=== PATIENT | female | born 1950 | race Caucasian/White ===

== ENCOUNTER 2024-06-16 23:08 | Inpatient (IN) | payer MEDICARE, MEDICAID, SELFPAY ==
[2024-06-16 23:52] VITALS: BP 162/67; PULSE 120; RESP 24; TEMP 37.9; O2SAT 78; BMI 28.0
--- NOTE | 2024-06-16 23:56 | PD.EDRME ---
Rapid Medical Screening Exam RME Arrival date/time: 06/16/24 23:08 73 yo f present to ED for c/o of SOB. I have greeted and performed a focused initial assessment of this patient. A comprehensive ED assessment and evaluation of the patient, analysis of all test results, and completion of the medical decision making process will be conducted by additional ED providers. Chief Complaint: Shortness of Breath/Dyspnea Vital signs: Vital Signs Temperature 100.3 F 06/16/24 23:52 Pulse Rate 120 H 06/16/24 23:52 Respiratory Rate 24 H 06/16/24 23:52 Blood Pressure 162/67 H 06/16/24 23:52 Pulse Oximetry (%) 78 L 06/16/24 23:52 Oxygen Delivery Method Room Air 06/16/24 23:52
--- NOTE | 2024-06-16 23:57 | XR_ITS ---
Examination: AP chest single view Technique one AP portable upright chest single view Exam date and time: June 16, 2024 1106 hrs. Indications: Shortness of breath today. Findings: Mild prominence of ventricle Prominent vascular congestion including central vascular engorgement No tracy lobar pneumonia The osseous structures are intact Impression: Suspicious for early heart failure
[2024-06-17] VITALS (15 sets, daily range): BP systolic 116–170; BP diastolic 54–91; PULSE 73–118; RESP 15–32; TEMP 36.1–38.1; O2SAT 90–98
[2024-06-17 00:25] LABS: Base Excess 3 (-3-3); HCO3 27 mEq/L (20-26); O2 Saturation 99 % (91-98); PCO2 38 mmHg (32.0-48.0); PO2 94 mmHg (83-108); pH, Arterial 7.46 (7.35-7.45)
[2024-06-17 00:30] LABS: Basophils % (Auto) 0 % (0-2.5); Eosinophils % (Auto) 0 % (0-10); Hematocrit 38.7 % (36.0-46.0); Hemoglobin 12.8 g/dL (12.0-16.0); Immature Granulocytes % (Auto) 1 % (0-0); Immature Granulocytes Auto 0.14 Thou/mm3 (0.00-0.00); Lymphocytes % (Auto) 16 % (10-50); Mean Corpuscular HGB Conc 33.1 g/dl (31.0-37.0); Mean Corpuscular Hemoglobin 28.1 pg (25.0-35.0); Mean Corpuscular Volume 85 fL (80-100); Monocytes # (Auto) 1.3 Thou/mm3 (0.0-0.8); Monocytes % (Auto) 7 % (0-12); Neutrophils # (Auto) 14.1 Thou/mm3 (1.8-7.7); Neutrophils % (Auto) 76 % (37-80); Nucleated Red Blood Cell % 0 /100 WBC (0); Platelet Count 242 Thou/mm3 (140-440); RDW Standard Deviation 40.7 fL (36.4-46.3); Red Blood Count 4.55 Miln/mm3 (4.00-5.20); White Blood Count 18.5 Thou/mm3 (3.6-11.0)
[2024-06-17 00:30] LABS: Inspired O2, VO2 Liters 12 L/min
[2024-06-17 00:31] LABS: Allen Test Performed/OK; Puncture Site Right Radial
[2024-06-17 00:57] LABS: B-Type Natriuretic Peptide 49 pg/mL (0-100)
[2024-06-17 00:59] LABS: Alanine Aminotransferase 14 U/L (10-49); Albumin, Serum 4.9 gm/dL (3.4-4.8); Albumin/Globulin Ratio 1.8 (1.2-2.2); Alkaline Phosphatase 70 U/L (46-116); Anion Gap 9 (7-16); Aspartate Amino Transferase 17 U/L (0-34); BUN/Creatinine Ratio 19 Ratio (12-20); Bilirubin,Total 0.4 mg/dL (0.3-1.2); Blood Urea Nitrogen 19 mg/dL (9-23); Calcium 9.7 mg/dL (8.3-10.6); Calcium (Corrected) 9.7 mg/dL (8.5-10.1); Carbon Dioxide 26.6 mMol/L (20.0-31.0); Chloride 101 mMol/L (98-107); Estimated Creatinine Clearance 57.8 mL/min (>60); Globulin 2.7 gm/dL (2.3-3.5); Glucose 109 mg/dL (74-106); Osmolality,Calculated 277 (275-295); Potassium 3.7 mMol/L (3.4-5.1); Sodium 137 mMol/L (136-145); Total Protein 7.6 gm/dL (5.7-8.2); Troponin I < 0.020 ng/mL (0.0-0.045); eGFR 59 See Note
--- NOTE | 2024-06-17 01:48 | PD.EDSOB ---
ED SOB =RME/HPI General Chief Complaint: Shortness of Breath/Dyspnea Stated Complaint: DIFF BREATHING Source: patient Arrival date/time: 06/16/24 23:08 Mode of arrival: ambulatory Limitations: no limitations RME / HPI RME / HPI Narrative: Patient is a 73 years old female with PMH of asthma, GERD, HTN, HLD presented to the ED complaining of SOB. She reports she had URI symptoms for the last several days, today her breathing got worse and she came to the ED. She was previously prescribed home oxygen but due to insurance issues wasn't able to refill it. She reports runny nose, non-productive cough, SOB, chills. She denies chest pain, abdominal pain, fever. Related Data Home Medications ?Medication ?Instructions ?Recorded ?Confirmed Acetaminophen With Codeine #3 * 1 tab PO [id number] PRN PAIN #0 tabs 03/28/17 (TYLENOL WITH CODEINE #3 *) albuterol sulfate 2.5 mg/3 mL ##1 03/28/17 (0.083 %) solution for nebulization albuterol sulfate 90 mcg/actuation 2 puff inhalation Q6HR PRN 03/28/17 aerosol inhaler (Proventil HFA) SHORTNESS OF BREATH #0 inhalations alprazolam 0.25 mg tablet 0.25 mg PO BID #0 tabs 03/28/17 lisinopril 40 mg tablet 40 mg PO QDAY #0 tabs 03/28/17 montelukast 10 mg tablet 10 mg PO HS #0 tabs 03/28/17 (Singulair) simvastatin 20 mg tablet (Zocor) 20 mg PO HS #0 tabs 03/28/17 Previous Rx's ?Medication ?Instructions ?Recorded famotidine 20 mg tablet 20 mg PO BID #14 tabs 01/31/22 sucralfate 100 mg/mL oral 5 ml PO QID #400 mL 01/31/22 suspension (Carafate) Allergies Allergy/AdvReac Type Severity Reaction Status Date / Time aspirin Allergy Unknown UNKNONW Unverified 06/17/24 02:21 diphenhydramine Allergy Unknown UNKNONW Unverified 06/17/24 02:21 Penicillins Allergy Unknown UNKNOWN Unverified 06/17/24 02:21 Review of Systems Review of Systems Systems Reviewed: All systems reviewed, normal except as documented Past Medical History Social History SMOKING STATUS: Former smoker ED Exam Narrative Physical exam: GENERAL: In general the patient is awake, interactive, in an emergency department gurney. HEAD/EYES/EARS/NOSE/THROAT: normo-cephalic, atraumatic, mucus membranes are moist. No cervical tenderness palpation midline. Supple neck. CARDIOVASCULAR: regular rate and regular rhythm, no murmurs, heart sounds are not distant, strong pulses in all four extremities that are equal and symmetric bilateral upper and lower extremities, normal capillary refill. CHEST/PULMONARY: normal chest rise and fall, good air movement, mild expiratory wheezing bilaterally. ABDOMEN: soft, not tender, no masses appreciated BACK: normal range of motion without pain. NEUROLOGICAL: cranio-facial features are symmetric, moves all four extremities equally without obvious limitations or weakness. EXTREMITY: no tenderness to palpation over the long bones or large joints of the bilateral upper and lower extremities, no joint swelling, no joint erythema, no signs of trauma, no unilateral leg swelling and no peripheral edema. SKIN: warm, dry, well-perfused, no jaundice, no rash, no telangiectasias or petechia. PSYCH: calm, cooperative, no evidence of psychosis or agitation General Limitations: Present no limitations Course Course Course Narrative: 0155 Sepsis alert initiated. Orders made at this time are congruent with ED Adult Sepsis Order List. Re-evaluation is to be completed. 0230 Sepsis reassessment performed consisting of lab review, vitals, physical exam including auscultation of heart, lungs, and visual evaluation of capillary refills, mucosal membranes and extremities. CXR and CTA are ordered for determining etiology of shortness of breath. 0600: passed to day shift. Quality Measures Possible source: pulmonary Blood cultures ordered: yes Antibiotic ordered: Yes Pertinent labs: 06/17/24 00:05 Procalcitonin 0.10 ng/ml (0.0-0.49) sepsis Orders Category Date Time Status Bedside COVID-19 Antigen Test NOW Care 06/17/24 02:00 Active Bedside Influenza A&B Antigen Test NOW Care 06/16/24 23:[address] Screening NOW Care 06/17/24 02:54 Active EKG (ED ONLY) *Do not use* NOW Care 06/16/24 23:57 Completed Insert IV STAT Care 06/16/24 23:[address] angio chest Stat Exams 06/17/24 02:54 Taken EKG (ED Only) Stat Exams 06/16/24 23:57 Ordered XR chest 1V portable Stat Exams 06/16/24 23:57 Taken ABG [Arterial Blood Gas] Stat Lab 06/17/24 00:18 Completed BNP [B-Type Natriuretic Peptide] Stat Lab 06/16/24 23:58 Completed Blood Culture (Lab) Stat Lab 06/16/24 23:58 Received CBC Stat Lab 06/16/24 23:57 Completed CMP [Comprehensive Metabolic Panel] Stat Lab 06/16/24 23:57 Completed Procalcitonin Stat Lab 06/16/24 23:57 Completed Troponin I Stat Lab 06/16/24 23:57 Completed Urinalysis Stat Lab 06/17/24 05:32 Ordered Albuterol/Ipratr Rt Jannie [Duoneb Rt Jannie] Med 06/17/24 02:00 Discontinued 3 ml INH X1 ONE Azithromycin Inj [Zithromax Inj] 500 mg Med 06/17/24 01:55 Discontinued Sodium Chloride 0.9% 250 ml [Ns] 250 ml IV X1 HYDROcodone/APAP 10/325 [[place] 10/325] Med 06/17/24 02:53 Discontinued 1 tab PO X1 ONE MethylPREDNISolone.* [SoluMEDROL Inj] Med 06/17/24 02:01 Discontinued 125 mg IVP X1 ONE Sodium Chloride 0.9% 1000 ml [Ns] 1,000 ml Med 06/17/24 01:56 Discontinued IV 999 mls/hr cefTRIAXone [Rocephin] 1,000 mg Med 06/17/24 01:55 Discontinued SODIUM CHLORIDE 0.9% ([place]) [Ns 0.9% (P)] 50 ml IV X1 Oxygen Delivery NOW RT 06/16/24 23:57 Active Vital Signs Vital signs: Vital Signs Temperature 100.3 F 06/16/24 23:52 Pulse Rate 120 H 06/16/24 23:52 Respiratory Rate 24 H 06/16/24 23:52 Blood Pressure 162/67 H 06/16/24 23:52 Pulse Oximetry (%) 78 L 06/16/24 23:52 Oxygen Delivery Method Room Air 06/16/24 23:52 Procedures -ED EKG Interpretation #1: Date of EK06/17/24 Time of EK:06 Rate: 110 Interpretation: Interpreted by me EKG Impression: Sinus tachycardia Shortness of Breath / Dyspnea Patient data External records reviewed:: [facility] previous records Clinical information provided by:: patient Social determinants that could affect healthcare access:: none Patient has the following chronic illnesses:: see PMH How is presenting disease/condition affected by chronic disease/condition?: uneffected by Evaluation data The following diagnostics were reviewed and interpreted by me:: lab results and radiology exam(s) Lab and/or radiology exams considered but not ordered:: na Interpretation Summary: pending work up Medications / Prescriptions Medications or Prescriptions considered but not ordered:: na Medication administrations:: Medication Administration History Discontinued Medications Hydrocodone Bitart/Acetaminophen (Hydrocodone/Apap Tab) 1 tab PO X1 ONE Stop: 06/17/24 02:54 Last Admin: 06/17/24 03:16 Dose: 1 tab Documented By: PATRIZIA Albuterol/Ipratropium (Albuterol/Ipratropium (Duoneb) Rt Jannie 3 Ml Nebu) 3 ml INH X1 ONE Stop: 06/17/24 02:01 Last Admin: 06/17/24 02:12 Dose: 3 ml Documented By: PATRIZIA Ceftriaxone Sodium 1,000 mg/ (Sodium Chloride) 50 mls @ 100 mls/hr IV X1 ONE Stop: 06/17/24 02:24 Last Infusion: 06/17/24 03:13 Dose: Infused Documented By: Admin: 06/17/24 02:06 Dose: 100 mls/hr Documented By: PATRIZIA Azithromycin 500 mg/ Sodium (Chloride) 250 mls @ 250 mls/hr IV X1 ONE Stop: 06/17/24 02:54 Last Infusion: 06/17/24 04:08 Dose: Infused Documented By: Admin: 06/17/24 02:44 Dose: 250 mls/hr Documented By: PATRIZIA Sodium Chloride (Ns) 1,000 mls @ 999 mls/hr IV .Q1H1M ONE Stop: 06/17/24 02:56 Last Infusion: 06/17/24 03:29 Dose: Infused Documented By: Admin: 06/17/24 02:06 Dose: 999 mls/hr Documented By: PATRIZIA Methylprednisolone Sodium Succinate (Methylprednisolone Sod Succ 62.5 Mg/Ml 2ml Vial) 125 mg IVP X1 ONE Stop: 06/17/24 02:02 Last Admin: 06/17/24 02:07 Dose: 125 mg Documented By: CB as above, if any Consultations Consultation(s) initiated? (list below): No Diagnosis Shortness of Breath Differential Diagnosis: acute exacerbation of chronic obstructive airways disease, community acquired pneumonia, pulmonary embolism and other (URI) Most likely diagnosis given after review of the tests above:: PNA Admission Indicated Admission indicated?: indicated (pending work up) Admission Request Was there a request for admission?: No Disposition Plan Disposition Plan: other (specify) (passed to day shift) Discharge Plan Prescriptions/Referrals Prescriptions/Med Rec: No Action Acetaminophen With Codeine #3 * (TYLENOL WITH CODEINE #3 *) 1 TAB tablet 1 tab PO [id number] PRN (Reason: PAIN) Qty: 0 Patient Comments: FOR PAIN alprazolam 0.25 MG tablet 0.25 mg PO BID Qty: 0 simvastatin [Zocor] 20 MG tablet 20 mg PO HS Qty: 0 montelukast [Singulair] 10 MG tablet 10 mg PO HS Qty: 0 lisinopril 40 MG tablet 40 mg PO QDAY Qty: 0 albuterol sulfate 0.83 MG/ML solution Qty: 1 albuterol sulfate [Proventil HFA] 6.7 GM HFA aerosol inhaler 2 puff Inhalation Q6HR PRN (Reason: SHORTNESS OF BREATH) Qty: 0 famotidine 20 mg tablet 20 mg PO BID Qty: 14 0RF sucralfate [Carafate] 100 mg/mL suspension 5 ml PO QID Qty: 400 0RF Rx Instructions: swish in mouth and swallow; use after food/drink Referrals: No Primary/Family,Physician [Primary Care Provider] - In 1 week Problem List Clinical Impression: Dyspnea, Cough Patient/Caregiver Discharge Instructions Print Language: Icelandic
[2024-06-17] MEDS: SODIUM CHLORIDE 0.9% 1000 ML 1,000 ML 999 ML IV (02:06)
[2024-06-17] MEDS: cefTRIAXone 1,000 MG in SODIUM CHLORIDE 0.9% (Popper) 50 ML 100 MG IV (02:06)
[2024-06-17] MEDS: MethylPREDNISolone SOD SUCC 62.5 MG/ML 2ML VIAL 125 MG IVP (02:07)
[2024-06-17] MEDS: ALBUTEROL/IPRATROPIUM (Duoneb) RT SOL 3 ML NEBU INH (02:12)
[2024-06-17] MEDS: AZITHROMYCIN INJ 500 MG in SODIUM CHLORIDE 0.9% 250 ML 250 ML 250 MG IV (02:44)
--- NOTE | 2024-06-17 02:54 | XR_ITS ---
Examination: CTA chest with intravenous contrast 2-D reconstructions 3-D reconstructions, vascular Date and time of exam: June 17, 2024 0506 hrs. Indications: Shortness of breath chest pain SOB today CTDI: vol (mGy) 10.2 DLP: (mGycm) 399 Technique: Multiple axial sections of the thorax have been obtained. 3 mm slice thickness, from below the hemidiaphragms to above the apices of the lungs. Mediastinal and lung density settings have been obtained. 2-D sagittal and coronal reconstructions. 3-D angiographic renderings, 3-D volume renderings, 3D post processing, vascular maximum intensity projections obtained. Contrast administered is 100 cc [id number]. Low dose protocols were performed. One or more of the following dose reduction techniques were used; automated exposure control, adjustment of the mA and/or KV according to patient size, use of iterative reconstruction technique. Findings: Thoracic aortic calcification no aneurysmal dilatation No pulmonary artery filling defects Moderate calcification left anterior descending coronary artery COPD with multiple areas of airspace destruction Interstitial nodular disease throughout the lungs most consistent with pneumonia Cirrhosis, liver irregular in contour with at least mild splenomegaly No gallstones Impression: Negative for pulmonary artery emboli Interstitial nodular disease throughout the lungs most consistent with pneumonia Cirrhosis
[2024-06-17] MEDS: HYDROcodone/APAP 10/325 TAB PO (03:16)
--- NOTE | 2024-06-17 05:48 | PRELIM_ITS ---
CT angiogram of the chest with intravenous contrast (axial sections with sagittal and coronal reformats). June 17, 2024 at 0506 hours Clinical History: Shortness of breath. Comparison: None. Findings: Heart is normal in size. There is no pericardial or pleural effusion. There is atherosclerotic calcification along the thoracic aorta, great vessels and coronaries. There is no filling defect within the pulmonary arterial circulation. Thyroid is not enlarged. There is no thoracic lymphadenopathy. There is scarring within the lung apices. There is emphysema. Scattered reticular nodular densities and peribronchial thickening noted within the lungs. Patchy ground-glass density also noted within the right lung base. There is no pneumothorax. There is cirrhotic nodular contour of the liver. There is a small 1.4 cm hypodensity at the junction of the right and left lobes of the liver, not adequately characterized on this study. There is degenerative change in the spine. Impression: 1. No thoracic aortic aneurysm or dissection. No pulmonary arterial embolism. No pericardial or pleural effusion. No pneumothorax. 2. Scattered reticular nodular densities, peribronchial thickening and some ground-glass density in keeping with infectious/inflammatory process. Atypical infection, endobronchial spread of infection and aspiration pneumonia should be considered. Recommend follow-up to document resolution. 3. Cirrhosis. Nonspecific 1.4 cm hypodensity within the liver. Report Electronically Signed By: Dusty Virgen 06/17/2024 5:47:45 AM [EST]
--- NOTE | 2024-06-17 07:24 | PC.NURSE ---
Received report from Saundra RUIZ and assumed care of patient. Patient awake with friend at bedside. Patient currently on oxygen with O2 saturation of 96%
--- NOTE | 2024-06-17 07:51 | EDNOTE_ITS ---
ED SOB =RME/HPI General Chief Complaint: Shortness of Breath/Dyspnea Stated Complaint: DIFF BREATHING Time Seen by Provider: 06/17/24 07:50 Source: patient Arrival date/time: 06/16/24 23:08 Mode of arrival: ambulatory Limitations: no limitations RME / HPI RME / HPI Narrative: Patient is a 73 years old female with PMH of asthma, GERD, HTN, HLD presented to the ED complaining of SOB. She reports she had URI symptoms for the last several days, today her breathing got worse and she came to the ED. She was previously prescribed home oxygen but due to insurance issues wasn't able to refill it. She reports yellow-green sputum production as she coughs it up in front of me. Also she has increased dyspnea on exertion will barely walk to the bathroom she is much more winded per the daughter who is present. The breathing treatment helped and she says she is moving air better Related Data Home Medications ?Medication ?Instructions ?Recorded ?Confirmed Acetaminophen With Codeine #3 * 1 tab PO [id number] PRN P AIN #0 tabs 03/28/17 (TYLENOL WITH CODEINE #3 *) albuterol sulfate 2.5 mg/3 mL ##1 03/28/17 (0.083 %) solution for nebulization albuterol sulfate 90 mcg/actuation 2 puff inhalation Q 6HR PRN 03/28/17 aerosol inhaler (Proventil HFA) SHORTNESS OF BREATH #0 inhalations alprazolam 0.25 mg tablet 0.25 mg PO BID #0 tabs 03/28 lisinopril 40 mg tablet 40 mg PO QDAY #0 tabs montelukast 10 mg tablet 10 mg PO HS #0 tabs 03/28/17 (Singulair) simvastatin 20 mg tablet (Zocor) 20 mg PO HS #0 tabs 1 05/29/16 Previous Rx's ?Medication ?Instructions ?Recorded famotidine 20 mg tablet 20 mg PO BID #14 tabs sucralfate 100 mg/mL oral 5 ml PO QID #400 mL 01/31/22 suspension (Carafate) Allergies Allergy/AdvReac Type Severity Reaction Status Date / Time aspirin Allergy Unknown UNKNONW Verified 06/17/24 13:43 diphenhydramine Allergy Unknown UNKNONW Verified 06/17/24 13:43 Penicillins Allergy Unknown UNKNOWN Verified 06/17/24 13:43 Review of Systems Review of Systems Narrative Review of Systems: COPDReview of Systems: Constitutional: DENIES: Fevers,; Eyes: DENIES: Loss of vision, Head/Ear/Nose: DENIES: Loss of hearing. Throat: Denies dysphagia. Cardiovascular: Denies chest pain, Dyspnea or syncope. Respiratory: See HPI patient has increasing dyspnea on exertion with minimal activity literally sister reports 10 feet and she is winded Gastrointestinal: DENIES: Rectal bleeding or melena. Genitourinary: DENIES: Dysuria (painful or difficult urination),; Musculoskeletal: DENIES: Arthralgia (pain in a joint),; Skin: DENIES: Rash,; Neurological: DENIES: loss of function or movement,; Psychiatric: DENIES: recent major life stressor, emotional problem, illicit drug use or abuse,; Endocrinology: DENIES: Weight change,; Hematologic/Lymphatic: DENIES: Abnormal bruising. Allergic/Immunologic: DENIES: Urticaria (hives), ED Exam Narrative Physical exam: Physical Exam: General: The vital signs were reviewed. O2 sats are 86% on room air reported she can barely walk to the bathroom and gets winded quickly. The patient is non- toxic, in no apparent distress and appears healthy with a patent airway, no respiratory distress and has no apparent circulatory problems. Head & Scalp: Normocephalic, atraumatic. Face: Appears normal and is without lesions, deformity. Ears: Left external pinna appears normal. Right external pinna appears normal. Eyes: The sclera is anicteric. No obvious photophobia. The Left and Right Orbit/Lid/Conjunctiva appears normal without swelling, discoloration or injection. Nose: The nose is without deformity, discharge or tenderness; Throat: Appears normal. The mucous membranes are pink and moist without exudates, redness or mass seen. The tongue appears normal. Neck: The neck is supple and no apparent mass or adenopathy. Chest: The chest wall is normal in size and symmetry and has no chest wall tenderness or crepitus. The patient displays normal ventilator effort without retractions, accessory muscle use and has adequate air movement bilaterally with She has congested lungs with some scattered wheezing fair air movement. Cardiovascular: Regular rate and rhythm; No murmurs, rubs, or gallops; Gastrointestinal: The abdomen appears normal. No obvious hernias or mass. The abdomen is soft and benign, non-distended, with no pain, no guarding and no rebound tenderness. Bowel sounds are present and normal sounding. No CVA tenderness. Genitourinary: Back/Spine: Normal Spektor nontender Extremities/Musculoskeletal/lymphatic: The bilateral upper and lower extremities are warm. There is no evidence of arterial insufficiency. There is no evidence of venous insufficiency/edema. The patient spontaneously moves bilateral upper and lower extremities with no pain and no limitation of movement. There is no apparent, injury or trauma. Skin: The skin is warm, dry and intact. No rashes. No petechia. No purpura. No abnormal bruising. The color is appropriate with no cyanosis. Mental status/Psychiatric: Mental status is appropriate for age. The patient has no apparent delusions, visual hallucinations, no apparent audible hallucinations. The patient has no apparent suicidal thoughts/ideation and no apparent homicidal thoughts/ideation. Neurological: The patient is awake, alert, interactive, cordial, cooperative and is oriented to name and situation. The patient follows commands and answers historical question with no impairment. There is no visual disturbance apparent. The pupils are equal and reactive bilaterally with normal eye movements and no diplopia The bilateral upper and lower extremities have normal strength, normal range of motion and normal functioning. The gait, station and balance appear to be baseline with no acute change as reported by sister except can only walk 10 feet without getting short of breath General Limitations: Present no limitations Course Course Course Narrative: 0155 Sepsis alert initiated. Orders made at this time are congruent with ED Adult Sepsis Order List. Re-evaluation is to be completed. 0230 Sepsis reassessment performed consisting of lab review, vitals, physical exam including auscultation of heart, lungs, and visual evaluation of capillary refills, mucosal membranes and extremities. CXR and CTA are ordered for determining etiology of shortness of breath. 0600: passed to day shift. Quality Measures none Orders Category Date Time Status Bedside COVID-19 Antigen Test NOW Care 06/17/24 02:00 Active Bedside Influenza A&B Antigen Test NOW Care 06/16/24 23:[address] Screening NOW Care 06/17/24 02:54 Active EKG (ED ONLY) *Do not use* NOW Care 06/16/24 23:57 Completed Insert IV STAT Care 06/16/24 23:58 Active Diet Regular Diet 06/17/[address] angio chest Stat Exams 06/17/24 02:54 Completed EKG (ED Only) Stat Exams 06/16/24 23:57 Ordered XR chest 1V portable Stat Exams 06/16/24 23:57 Completed ABG [Arterial Blood Gas] Stat Lab 06/17/24 00:18 Completed BNP [B-Type Natriuretic Peptide] Stat Lab 06/16/24 23:58 Completed Blood Culture (Lab) Stat Lab 06/16/24 23:58 Received CBC Stat Lab 06/16/24 23:57 Completed CMP [Comprehensive Metabolic Panel] Stat Lab 06/16/24 23:57 Completed Procalcitonin Stat Lab 06/16/24 23:57 Completed Troponin I Stat Lab 06/16/24 23:57 Completed Urinalysis Stat Lab 06/17/24 08:11 Completed ALBUTEROL RT 0.5ml [Proventil Rt 0.5ml] Med 06/17/24 09:36 Discontinued 5 mg INH X1 ONE Albuterol/Ipratr Rt Jannie [Duoneb Rt Jannie] Med 06/17/24 02:00 Discontinued 3 ml INH X1 ONE Azithromycin Inj [Zithromax Inj] 500 mg Med 06/17/24 01:55 Discontinued Sodium Chloride 0.9% 250 ml [Ns] 250 ml IV X1 HYDROcodone/APAP 10/325 [[place] 10/325] Med 06/17/24 02:53 Discontinued 1 tab PO X1 ONE MethylPREDNISolone.* [SoluMEDROL Inj] Med 06/17/24 02:01 Discontinued 125 mg IVP X1 ONE Sodium Chloride 0.9% 1000 ml [Ns] 1,000 ml Med 06/17/24 01:56 Discontinued IV 999 mls/hr Sodium Chloride Rt Jannie 0.9% [NS Rt Jannie 0.9%] Med 06/17/24 09:36 Active 3 ml INH PRN PRN cefTRIAXone [Rocephin] 1,000 mg Med 06/17/24 01:55 Discontinued SODIUM CHLORIDE 0.9% (Popper) [Ns 0.9% (P)] 50 ml IV X1 Late Tray Request Routine Oth 06/17/24 08:52 Active Oxygen Delivery NOW RT 06/16/24 23:57 Active Vital Signs Vital signs: Vital Signs Temperature 100.3 F 06/16/24 23:52 Pulse Rate 120 H 06/16/24 23:52 Respiratory Rate 24 H 06/16/24 23:52 Blood Pressure 162/67 H 06/16/24 23:52 Pulse Oximetry (%) 78 L 06/16/24 23:52 Oxygen Delivery Method Room Air 06/16/24 23:52 Shortness of Breath / Dyspnea MDM Narrative MDM Narrative:: Patient 73-year-old with history of COPD who comes in with increasing sputum production short of breath dyspnea on exertion is worsened has a CT which shows bilateral nodular infiltrates consistent with possible bilateral pneumonia. Chest x-ray has some right lower lobe infiltrates. As reviewed by myself. Patient was seen by previous provider before my shift and given a breathing treatment and some steroids. Also dose of ceftriaxone was given to cover for pneumonia along azithromycin. Patient is clinically comfortable at this time while she has oxygen she desaturates quite quickly. Laboratory studies revealed a urinalysis is unremarkable with 4 red cells and 1 white cell. CTA of the chest reveals no pulmonary emboli and bilateral com prehensive metabolic panel reveals a sodium 137 potassium 3.7 anion gap is 9 BUN 19 creatinine 1.0 transaminases bilirubin within normal limits BNP and troponin are negative. Procalcitonin is negative white count is 18.[address] Bridges was called and agrees admit the patient for worsening dyspnea on exertion probably bilateral pneumonia. Patient data External records reviewed:: [facility] previous records Clinical information provided by:: patient and family Social determinants that could affect healthcare access:: none Patient has the following chronic illnesses:: COPD and has required home O2 in the past but clinically is worse today. How is presenting disease/condition affected by chronic disease/condition?: exacerbated by (COPD) Evaluation data The following diagnostics were reviewed and interpreted by me:: lab results (See above) and radiology exam(s) (See above) Lab and/or radiology exams considered but not ordered:: None Interpretation Summary: See MDM above Medications / Prescriptions Medications or Prescriptions considered but not ordered:: None Medication administrations:: Medication Administration History Acetaminophen (Acetaminophen 325 Mg Tablet) 650 mg PO Q6H PRN PRN Reason: PAIN OR FEVER > 100.4 Stop: 07/17/24 12:17 Dextrose (Dextrose 50%-Water Inj 50 Ml Syringe) 25 ml IV Q15MIN PRN PRN Reason: BG 50-70 responsive npo pt Stop: 07/17/24 12:17 Dextrose (Dextrose 50%-Water Inj 50 Ml Syringe) 50 ml IV Q15MIN PRN PRN Reason: BG <50 OR BG <70 & pt unresponsive Stop: 07/17/24 12:17 Glucagon (Glucagon Inj 1 Mg Vial) 1 mg IM Q15MIN PRN PRN Reason: BG <70, and no IV access Heparin Sodium (Porcine) (Heparin Sod Inj 5000 Unit/Ml Vial) 5,000 unit SC BID [facility] Stop: 07/01/24 20:59 Ceftriaxone Sodium 1,000 mg/ (Sodium Chloride) 50 mls @ 100 mls/hr IV QDAY [facility] Stop: 06/25/24 08:59 Azithromycin 500 mg/ Sodium (Chloride) 250 mls @ 250 mls/hr IV QDAY [facility] Stop: 06/21/24 08:59 Insulin Human Lispro (Insulin Lispro (Admelog) 1 Unit/0.01 Ml Unit) 0 unit SC AC [facility]; Protocol Stop: 07/17/24 16:59 Ipratropium [place] (Ipratropium Rt 0.5 Mg/ 2.5 Ml Nebu) 0.5 mg INH Q4HRRT [facility] Stop: 07/17/24 14:59 Last Admin: 06/17/24 14:24 Dose: 0.5 mg Documented By: NOAH Levalbuterol HCl (Levalbuterol Rt 0.63 Mg/3 Ml Nebu) 0.63 mg INH Q4HRRT [facility] Stop: 07/17/24 14:59 Last Admin: 06/17/24 14:24 Dose: 0.63 mg Documented By: NOAH Ondansetron HCl (Ondansetron Inj 2 Mg/Ml Inj 2 Ml) 4 mg IV Q6H PRN; Protocol PRN Reason: NAUSEA OR VOMITING Stop: 07/17/24 12:17 Pantoprazole Sodium (Pantoprazole Inj 40 Mg Vial) 40 mg IVP QDAY [facility] Stop: 07/17/24 12:29 Last Admin: 06/17/24 13:47 Dose: 40 mg Documented By: ALEK Prednisone (Prednisone 20 Mg Tablet) 40 mg PO QDAY [facility] Stop: 07/18/24 08:59 Sodium Chloride (Sodium Chloride Rt Jannie 0.9% 3 Ml Nebu) 3 ml INH PRN PRN PRN Reason: SOLN Stop: 07/17/24 09:35 Discontinued Medications Hydrocodone Bitart/Acetaminophen (Hydrocodone/Apap Tab) 1 tab PO X1 ONE Stop: 06/17/24 02:54 Last Admin: 06/17/24 03:16 Dose: 1 tab Documented By: PATRIZIA Albuterol (Albuterol Rt 2.5 Mg/0.5 Ml Nebu) 5 mg INH X1 ONE Stop: 06/17/24 09:37 Last Admin: 06/17/24 09:43 Dose: 5 mg Documented By: NOAH Albuterol/Ipratropium (Albuterol/Ipratropium (Duoneb) Rt Jannie 3 Ml Nebu) 3 ml INH X1 ONE Stop: 06/17/24 02:01 Last Admin: 06/17/24 02:12 Dose: 3 ml Documented By: PATRIZIA Ceftriaxone Sodium 1,000 mg/ (Sodium Chloride) 50 mls @ 100 mls/hr IV X1 ONE Stop: 06/17/24 02:24 Last Infusion: 06/17/24 03:13 Dose: Infused Documented By: Admin: 06/17/24 02:06 Dose: 100 mls/hr Documented By: PATRIZIA Azithromycin 500 mg/ Sodium (Chloride) 250 mls @ 250 mls/hr IV X1 ONE Stop: 06/17/24 02:54 Last Infusion: 06/17/24 04:08 Dose: Infused Documented By: Admin: 06/17/24 02:44 Dose: 250 mls/hr Documented By: PATRIZIA Sodium Chloride (Ns) 1,000 mls @ 999 mls/hr IV .Q1H1M ONE Stop: 06/17/24 02:56 Last Infusion: 06/17/24 03:29 Dose: Infused Documented By: Admin: 06/17/24 02:06 Dose: 999 mls/hr Documented By: PATRIZIA Methylprednisolone Sodium Succinate (Methylprednisolone Sod Succ 62.5 Mg/Ml 2ml Vial) 125 mg IVP X1 ONE Stop: 06/17/24 02:02 Last Admin: 06/17/24 02:07 Dose: 125 mg Documented By: PATRIZIA Prednisone (Prednisone 20 Mg Tablet) 20 mg PO QDAY [facility] Stop: 07/18/24 08:59 As above Consultations Consultation(s) initiated? (list below): Yes Diagnosis Shortness of Breath Differential Diagnosis: acute exacerbation of chronic obstructive airways disease and community acquired pneumonia Most likely diagnosis given after review of the tests above:: COPD exacerbation with viral pneumonia cannot exclude bacterial pneumonia Admission Indicated Admission indicated?: indicated Admission Request Was there a request for admission?: Yes Admission Attestation Admission request attestation: Discussed case with [] from Hospitalist service regarding admission. Discussed patients ED course, exam findings, labs, and radiology results. The Hospitalist [agrees,declines] to accept the patient for admission. Disposition Plan Disposition Plan: Admit Critical Care Time Critical Care Time Critical Care Time: Yes Total Critical Care Time (min.): 35 Attestation: Patient required continuous neb of albuterol. the high probability of sudden, clinically significant deterioration in the patient's condition required the highest level of my preparedness to intervene urgently. The services I provided to this patient were to treat and/or prevent clinically significant deterioration. Services included the following: chart data review, reviewing nursing notes and/or old charts, documentation time, senior solutions consultant collaboration regarding findings and treatment options, medication orders and management, direct patient care, vital sign assessments and ordering, interpreting and reviewing diagnostic studies and lab tests. Aggregate critical care time includes only time during which I was engaged in work directly related to the patient's care, as described above, whether at bedside or elsewhere in the Emergency Department. It did not include time spent performing other reported procedures or the services of residents, students, nurses or physician assistants. Discharge Plan Plan Patient Disposition: Admit Acute Care w/in Hospital Disposition Comment: Hospitalist admit Problem List Clinical Impression: Dyspnea, Cough, COPD exacerbation, WALTERS (dyspnea on exertion), Hypoxemia, Bilateral pneumonia
[2024-06-17 08:49] LABS: Collection Type, Urine Clean Catch
[2024-06-17 08:57] LABS: Bilirubin,Urine Negative (Negative); Blood,Urine Negative (Negative); Clarity,Urine Clear (Clear/Hazy); Color,Urine Lt-Yellow (Lt Yel-Yel); Glucose, Urine Negative (Negative); Ketones,Urine Negative (Negative); Leukocyte Esterase,Urine Negative (Negative); Nitrite,Urine Negative (Negative); Protein,Urine Negative (Neg - Trace); RBC,Urine 4 /hpf (0-3); Squamous Epithelial Cell,Urine 1 /hpf (0-5); Urobilinogen,Urine Negative mg/dL (0.0-1.0); WBC,Urine < 1 /hpf (0-5)
[2024-06-17] MEDS: ALBUTEROL RT 2.5 MG/0.5 ML NEBU 5 MG INH (09:43)
--- NOTE | 2024-06-17 13:30 | ESHP_ITS ---
<Statement entered by Velasquez Salgado MD - 06/17/24 20:47> This patient is a 73-year-old female with past medical history of COPD and recently had sick contact at home with flu presented to the ED with worsening shortness of breath and productive cough. She was also complaining of fever, muscle aches, cough and sore throat. She did not had home oxygen available at home due to insurance issues. Patient is admitted for acute hypoxic respiratory failure due to COPD exacerbation. VBG's were unremarkable. Patient was hypoxic and placed on 6 L OxyMask. Flu test was negative. Will continue with ceftriaxone and azithromycin and will follow-up with blood culture results tomorrow morning. Steroid therapy with breathing treatments was also added. Labs and orders were reviewed. I saw and examined the patient, and I agree with current management stated by Dr Luis MD,PGY1. Plan of care was discussed with the attending physician and resident physician. Disclaimer: Despite multiple revisions, due to the dictation software being used, the document bellow may not be free of grammatical errors including phonetic/typographic errors. However, this does not deter from our commitment to providing health care in the patient's best interest in mind. Dr. Barak MD, PGY 2 Documentation for date of: 06/17/24 HPI History of Present Illness History of present illness: Tete Darling is a 73-year-old female with a PMHx of COPD (2 L home O2), GERD, hypertension, hyperlipidemia, type 2 diabetes mellitus who presented on 06/17 with shortness of breath. Patient states that she became short of breath approximately 2 days ago with associated fever, sweats, muscle aches, cough, and sore throat. Positive for sick contact at home with flu, however COVID and flu negative in ED. States that she did have recent flu vaccine. Denies diarrhea, constipation, dysuria, or abdominal pain. States that she has not been able to have her home oxygen for 1 week due to issues concerns. Otherwise, has no other complaints. In ED, vitals significant for BP 162/67, HR 120, RR 24, temp 100.3 ?F, and O2 sat of 78% on RA. Flu and COVID-negative. WBC 20.8, ABG showed pH 7.46, pCO2 30, pO2 94, and CMP unremarkable. UA clean. CTA chest showed interstitial nodular disease throughout lungs, consistent with pneumonia, COPD pattern with multiple areas of airspace obstruction, and negative for PE. Given 1 L NS bolus, methylprednisolone 125 mg x 1, azithromycin/ceftriaxone, and DuoNeb treatment. Admitted for management of sepsis and AHRF secondary to pneumonia and possible COPD exacerbation. PMHx: COPD on home O2, GERD, hypertension, hyperlipidemia, type 2 diabetes mellitus Medications: Lisinopril, simvastatin, alprazolam, famotidine, albuterol inhaler Allergies: NKDA SHx: Smoked 1 pack of cigarettes per day for 30 years quit a few years ago), no alcohol or illicit drug use Review of Systems Review of Systems Systems Reviewed: All systems reviewed, normal except as documented Exam Vital Signs Temp Pulse Resp BP Pulse Ox O2 Del Method O2 Flow Rate 97.7 F 86 18 139/54 H 94 L Nasal Cannula 6 06/17/24 12:05 06/17/24 12:05 06/17/24 12:05 06/17/24 12:05 06/17/24 12:05 06/17/24 12:05 06/17/24 12:05 Narrative Exam General: AOx3, laying comfortably in bed, on 6 L NC, able to speak full sentences HEENT: NC/AT, mucous membranes moist, bilateral sclera anicteric Cardiovascular: regular rate and rhythm, S1/S2 present, no murmurs appreciated Pulmonary: mild wheezing appreciated throughout most lung haji Abdominal: soft, non-tender, non-distended, no rebound/guarding, normal bowel sounds present Musculoskeletal: normal ROM, no peripheral edema Skin: warm and dry, intact, no rashes Neuro: CN II-XII intact, no focal deficits Results: Labs 06/18/24 12:39 06/18/24 05:39 Labs: Short CBC 06/17/24 Range/Units 00:05 WBC 18.5 H (3.6-11.0) Thou/mm3 Hgb 12.8 (12.0-16.0) g/dL Hct 38.7 (36.0-46.0) % Plt Count 242 (140-440) Thou/mm3 BMP 06/17/24 00:05 Sodium 137 Potassium 3.7 Chloride 101 Carbon Dioxide 26.6 BUN 19 Creatinine 1.0 Glucose 109 H Calcium 9.7 Cardiac Enzymes 06/17/24 Range/Units 00:05 Troponin I < 0.020 (0.0-0.045) ng/mL Liver Function 06/17/24 Range/Units 00:05 Total Bilirubin 0.4 (0.3-1.2) mg/dL AST 17 (0-34) U/L ALT 14 (10-49) U/L Alkaline Phosphatase 70 (46-116) U/L Albumin 4.9 H (3.4-4.8) gm/dL Urine 06/17/24 Range/Units 08:11 Urine Color Lt-Yellow (Lt Yel-Yel) Urine Clarity Clear (Clear/Hazy) Urine pH 6.0 (5.0-7.0) Ur Specific [place] 1.010 (1.001-1.035) Urine Protein Negative (Neg - Trace) Urine Glucose (UA) Negative (Negative) ABG Interpretation ABG results: 06/17/24 00:18 ABG pH 7.46 H ABG pCO2 38 ABG pO2 94 ABG HCO3 27 H ABG O2 Saturation 99 H ABG Base Excess 3 Quality Measures Quality Measures none Advance care planning discussed with:: patient Medications Home Medications and Allergies Home Medications ?Medication ?Instructions ?Recorded ?Confirmed ?Type Acetaminophen With Codeine #3 * 1 tab PO [id number] PRN P AIN #0 tabs 03/28/17 History (TYLENOL WITH CODEINE #3 *) albuterol sulfate 2.5 mg/3 mL ##1 03/28/17 History (0.083 %) solution for nebulization albuterol sulfate 90 mcg/actuation 2 puff inhalation Q 6HR PRN 03/28/17 History aerosol inhaler (Proventil HFA) SHORTNESS OF BREATH #0 inhalations alprazolam 0.25 mg tablet 0.25 mg PO BID #0 tabs 03/28 History lisinopril 40 mg tablet 40 mg PO QDAY #0 tabs History Held on 06/18/24. Instructions: Resume on 06/18/24. hold until you see your PCP montelukast 10 mg tablet 10 mg PO HS #0 tabs 03/28/17 History (Singulair) simvastatin 20 mg tablet (Zocor) 20 mg PO HS #0 tabs 1 05/29/16 History Allergies Allergy/AdvReac Type Severity Reaction Status Date / Time aspirin Allergy Unknown UNKNONW Verified 06/17/24 13:43 diphenhydramine Allergy Unknown UNKNONW Verified 06/17/24 13:43 Penicillins Allergy Unknown UNKNOWN Verified 06/17/24 13:43 Visit Medications Acetaminophen (Acetaminophen 325 Mg Tablet) 650 mg PO Q6H PRN PRN Reason: PAIN OR FEVER > 100.4 Stop: 07/17/24 12:17 Dextrose (Dextrose 50%-Water Inj 50 Ml Syringe) 25 ml IV Q15MIN PRN PRN Reason: BG 50-70 responsive npo pt Stop: 07/17/24 12:17 Dextrose (Dextrose 50%-Water Inj 50 Ml Syringe) 50 ml IV Q15MIN PRN PRN Reason: BG <50 OR BG <70 & pt unresponsive Stop: 07/17/24 12:17 Glucagon (Glucagon Inj 1 Mg Vial) 1 mg IM Q15MIN PRN PRN Reason: BG <70, and no IV access Heparin Sodium (Porcine) (Heparin Sod Inj 5000 Unit/Ml Vial) 5,000 unit SC BID [facility] Stop: 07/01/24 20:59 Ceftriaxone Sodium 1,000 mg/ (Sodium Chloride) 50 mls @ 100 mls/hr IV QDAY SADE Stop: 06/25/24 08:59 Azithromycin 500 mg/ Sodium (Chloride) 250 mls @ 250 mls/hr IV QDAY [facility] Stop: 06/21/24 08:59 Insulin Human Lispro (Insulin Lispro (Admelog) 1 Unit/0.01 Ml Unit) 0 unit SC AC [facility]; Protocol Stop: 07/17/24 16:59 Ipratropium [place] (Ipratropium Rt 0.5 Mg/ 2.5 Ml Nebu) 0.5 mg INH Q4HRRT [facility] Stop: 07/17/24 14:59 Levalbuterol HCl (Levalbuterol Rt 0.63 Mg/3 Ml Nebu) 0.63 mg INH Q4HRRT [facility] Stop: 07/17/24 14:59 Ondansetron HCl (Ondansetron Inj 2 Mg/Ml Inj 2 Ml) 4 mg IV Q6H PRN; Protocol PRN Reason: NAUSEA OR VOMITING Stop: 07/17/24 12:17 Pantoprazole Sodium (Pantoprazole Inj 40 Mg Vial) 40 mg IVP QDAY [facility] Stop: 07/17/24 12:29 Prednisone (Prednisone 20 Mg Tablet) 20 mg PO QDAY SADE Stop: 07/18/24 08:59 Sodium Chloride (Sodium Chloride Rt Jannie 0.9% 3 Ml Nebu) 3 ml INH PRN PRN PRN Reason: SOLN Stop: 07/17/24 09:35 Discontinued Medications Hydrocodone Bitart/Acetaminophen (Hydrocodone/Apap 10325 Tab) 1 tab PO X1 ONE Stop: 06/17/24 02:54 Last Admin: 06/17/24 03:16 Dose: 1 tab Albuterol (Albuterol Rt 2.5 Mg/0.5 Ml Nebu) 5 mg INH X1 ONE Stop: 06/17/24 09:37 Last Admin: 06/17/24 09:43 Dose: 5 mg Albuterol/Ipratropium (Albuterol/Ipratropium (Duoneb) Rt Jannie 3 Ml Nebu) 3 ml INH X1 ONE Stop: 06/17/24 02:01 Last Admin: 06/17/24 02:12 Dose: 3 ml Ceftriaxone Sodium 1,000 mg/ (Sodium Chloride) 50 mls @ 100 mls/hr IV X1 ONE Stop: 06/17/24 02:24 Last Infusion: 06/17/24 03:13 Dose: Infused Azithromycin 500 mg/ Sodium (Chloride) 250 mls @ 250 mls/hr IV X1 ONE Stop: 06/17/24 02:54 Last Infusion: 06/17/24 04:08 Dose: Infused Sodium Chloride (Ns) 1,000 mls @ 999 mls/hr IV .Q1H1M ONE Stop: 06/17/24 02:56 Last Infusion: 06/17/24 03:29 Dose: Infused Methylprednisolone Sodium Succinate (Methylprednisolone Sod Succ 62.5 Mg/Ml 2ml Vial) 125 mg IVP X1 ONE Stop: 06/17/24 02:02 Last Admin: 06/17/24 02:07 Dose: 125 mg Assessment & Plan Plan Tete Darling is a 73-year-old female with a PMHx of COPD (2 L home O2), GERD, hypertension, hyperlipidemia, type 2 diabetes mellitus who presented on 06/17 with shortness of breath and admitted for management of sepsis and AHRF secondary to pneumonia and possible COPD exacerbation. #Sepsis 2/2 PNA #CAP likely 2/2 to gram positive bacteria vs viral vs fungal #AHRF 2/2 to above Presents with shortness of breath with associated fever, sweats, muscle aches, cough, and sore throat. Flu and COVID-negative. Pro-Haseeb negative. CTA chest: Interstitial nodular disease throughout lungs, consistent with pneumonia. 4/4 SIRS criteria: HR 120, RR 24, temp 100.5 ?F, WBC 18.5. Source: pneumonia -> sepsis. Received IVF and ceftriaxone/azithromycin in ED. ? Ceftriaxone 1 g IV daily () ? Azithromycin 500 mg IV for 3 days () ? Follow-up RSV and cocci ? Follow-up blood culture () #COPD exacerbation Presents with upper respiratory infections symptoms as well as increased sputum production. Received methylprednisolone 125 mg x 1 and ceftriaxone/azithromycin in ED. ? Ipratropium and levalbuterol every 4 hours scheduled ? Prednisone 40 mg p.o. daily ? Azithromycin as above #Type 2 diabetes mellitus On home Ozempic and metformin. ? Follow-up A1c ? SSI AC ? Hypoglycemic protocol in place #GERD ? Pantoprazole IV #Hypertension ? Pending med rec #Hyperlipidemia ? Pending med rec Hospital management: Disposition: Admitted for AHRF secondary to pneumonia and COPD exacerbation Diet: regular Lines: PIV DVT prophylaxis: heparin SC BID GI prophylaxis: pantoprazole CODE STATUS: full code ----- Plan discussed with attending physician Dr. Bridges and senior resident physician Dr. Barak Smith MD PGY-1 Internal Medicine Attending Provider Attestation/Addendum I have discussed and was present for the essential components of the history, physical examination, diagnosis, and treatment plan with the resident. I agree with the patient's care as documented by the resident and amended herein by me. Que Bridges DO. Although this document has been carefully reviewed, there may still be some phonetic and other typographical errors. These errors are purely grammatical due to imperfections in the software program and should not be construed in any way to compromise the substance of the patient's medical care during this visit.
[2024-06-17] MEDS: PANTOPRAZOLE INJ 40 MG VIAL IVP (13:47)
[2024-06-17] MEDS: LEVALBUTEROL RT 0.63 MG/3 ML NEBU INH ×3 (14:24→23:01)
[2024-06-17] MEDS: IPRATROPIUM RT 0.5 MG/ 2.5 ML NEBU INH ×3 (14:24→23:01)
[2024-06-17] MEDS: INSULIN LISPRO (AdmeLOG) 1 UNIT/0.01 ML UNIT SC (18:29)
[2024-06-17] MEDS: HEPARIN SOD INJ 5000 UNIT/ML VIAL SC (22:04)
[2024-06-17 22:42] LABS: Respiratory Syncytial Virus Ag Negative (Negative)
[2024-06-18] VITALS (10 sets, daily range): BP systolic 117–156; BP diastolic 44–78; PULSE 66–99; RESP 15–27; TEMP 35.9–36.6; O2SAT 93–100; BMI 30.2
[2024-06-18] MEDS: LEVALBUTEROL RT 0.63 MG/3 ML NEBU INH ×4 (03:12→15:42)
[2024-06-18] MEDS: IPRATROPIUM RT 0.5 MG/ 2.5 ML NEBU INH ×4 (03:12→15:42)
[2024-06-18 05:58] LABS: Basophils % (Auto) 0 % (0-2.5); Eosinophils % (Auto) 0 % (0-10); Hematocrit 32.2 % (36.0-46.0); Hemoglobin 10.3 g/dL (12.0-16.0); Immature Granulocytes % (Auto) 1 % (0-0); Lymphocytes # (Auto) 2.5 Thou/mm3 (1.0-4.8); Lymphocytes % (Auto) 17 % (10-50); Mean Corpuscular Hemoglobin 27.2 pg (25.0-35.0); Mean Corpuscular Volume 85 fL (80-100); Monocytes # (Auto) 0.8 Thou/mm3 (0.0-0.8); Monocytes % (Auto) 5 % (0-12); Neutrophils # (Auto) 11.5 Thou/mm3 (1.8-7.7); Neutrophils % (Auto) 77 % (37-80); Nucleated Red Blood Cell % 0 /100 WBC (0); Platelet Count 193 Thou/mm3 (140-440); Red Blood Count 3.78 Miln/mm3 (4.00-5.20); White Blood Count 15.1 Thou/mm3 (3.6-11.0)
[2024-06-18 06:44] LABS: Anion Gap 8 (7-16); BUN/Creatinine Ratio 22 Ratio (12-20); Blood Urea Nitrogen 24 mg/dL (9-23); Calcium 9.1 mg/dL (8.3-10.6); Carbon Dioxide 24.9 mMol/L (20.0-31.0); Cardiac Risk Estimate 3.5 RATIO (3.7-5.6); Chloride 105 mMol/L (98-107); Cholesterol 134 mg/dL (132-200); Creatinine (Component) 1.1 mg/dL (0.6-1.3); Estimated Creatinine Clearance 54.4 mL/min (>60); Glucose 150 mg/dL (74-106); HDL Cholesterol 38 mg/dL (40-60); LDL Cholesterol,Calculated 64 mg/dL (0-130); Magnesium 2.4 mg/dL (1.6-2.6); Osmolality,Calculated 282 (275-295); Phosphorous 3.9 mg/dL (2.4-5.1); Sodium 138 mMol/L (136-145); Thyroid Stimulating Hormone 0.21 uIU/mL (0.55-4.78); Triglycerides 159 mg/dL (30-150); eGFR 53 See Note
[2024-06-18 06:51] LABS: Glucose Estimated Average 108 mg/dL (80-131); Hemoglobin A1C 5.4 % Hgb (4.8-6.0)
[2024-06-18 08:02] LABS: Free T4 (Free Thyroxine) 1.39 ng/dL (0.89-1.76)
[2024-06-18] MEDS: HEPARIN SOD INJ 5000 UNIT/ML VIAL SC (08:47)
[2024-06-18] MEDS: predniSONE 20 MG TABLET 40 MG PO (08:47)
[2024-06-18] MEDS: cefTRIAXone 1,000 MG in SODIUM CHLORIDE 0.9% (Popper) 50 ML 100 MG IV (08:47)
[2024-06-18] MEDS: PANTOPRAZOLE INJ 40 MG VIAL IVP (08:47)
[2024-06-18] MEDS: AZITHROMYCIN INJ 500 MG in SODIUM CHLORIDE 0.9% 250 ML 250 ML 250 MG IV (09:59)
--- NOTE | 2024-06-18 11:37 | PC.NURSE ---
patient oxygen on room air with activity -85%, patient oxygen saturation @ 2liters 93%
--- NOTE | 2024-06-18 12:04 | PC.SS ---
Addendum entered and electronically signed by MARTINA Kramer 06/18/24 15:10: [facility] accepted patient for DME delivery. MARTINA received call from [facility] stating that accepting referral on [facility] was an error. Patient's insurance out of network with [facility]. DME referral re-submitted on [facility] results are pending. Original Note: Walkers The diagnosis creates mobility limitation that significantly impairs ability to participate in the patients activities of daily living either in their entirety, or in a reasonable time frame. Also the patient is able to safely use the walker and the patient?s mobility is sufficiently resolved with the use of the walker and cane has been ruled out.
[2024-06-18 12:30] LABS: Band Neutrophils (Manual) 5 % (0-6); Lymphocytes (Manual) 14 % (20-44); Monocytes (Manual) 1 % (2-9); Neutrophils (Manual) 80 % (50-70)
[2024-06-18] MEDS: POLYETHYLENE GLYCOL 17 GM PACKET PO (12:39)
[2024-06-18] MEDS: SENNA TABLET 2 TAB PO (12:39)
--- NOTE | 2024-06-18 12:49 | PC.NURSE ---
discharge order written-awaiting for oxygen to be deliver.
[2024-06-18 12:52] LABS: Hematocrit 34.2 % (36.0-46.0); Hemoglobin 11.1 g/dL (12.0-16.0)
[2024-06-18] MEDS: MAGNESIUM CITRATE 300 ML BTL PO (13:14)
[2024-06-18 13:15] LABS: Cocci Serology, IgM Negative (Negative)
--- NOTE | 2024-06-18 13:51 | PC.SS ---
OYSTER FARMER conducted bedside contact with the patient conduct initial assessment and to discuss discharge planning.? Patient confirmed demographic information.? Patient resides at home with sister, Sarahi Lomeli .? Patient does not utilize any form of DME to assist with ambulation.? Patient does not utilize home oxygen.? Patient describes the ability to complete ADL?s independently.? Patient identified sister, Sarahi Lomeli; as medical surrogate decision maker.? Patient?s PCP is [facility] Rosa.? Patient does not participate with dialysis.? Patient does not possess any specialty providers.? Plan is for the patient to return home at the time of discharge.? Family will provide transportation on behalf of the patient. ?Patient will require home oxygen upon discharge, patient requesting walker.? No preferred vendor identified.? No discharge needs identified by the patient.? No further intervention required at this time, transition social worker will be available to address any further concerns.? Next of Kin: Sarahi Lomeli D/C Plan: Home
--- NOTE | 2024-06-18 13:56 | ESDS_ITS ---
<Statement entered by Velasquez Salgado MD - 06/18/24 16:09> I saw and examined the patient, and I agree with current management stated by Dr Luis MD,PGY1. Plan of care was discussed with the attending physician and resident physician. Disclaimer: Despite multiple revisions, due to the dictation software being used, the document bellow may not be free of grammatical errors including phonetic/typographic errors. However, this does not deter from our commitment to providing health care in the patient's best interest in mind. Dr. Naomi MD, PGY 2 Planned Discharge Date 06/18/24 DS: Providers Provider Date of admission: 06/17/24 10:35 Primary care physician: Physician No Primary/Family Admitting Provider: Adis Bridges DO Attending Provider on Admission: Adis Bridges DO Attending Provider on DC: José Smith MD Discharging Provider: José Smith MD DS: Diagnosis Problem List Completed Was Problem List Reviewed/Reconciled?: Yes Hospital Course Hospital Course Hospital course: Tete Darling is a 73-year-old female with a PMHx of COPD (2 L home O2), GERD, hypertension, hyperlipidemia, type 2 diabetes mellitus who presented on 06/17 with shortness of breath. Patient states that she became short of breath approximately 2 days ago with associated fever, sweats, muscle aches, cough, and sore throat. Positive for sick contact at home with flu, however COVID and flu negative in ED. States that she did have recent flu vaccine. Denies diarrhea, constipation, dysuria, or abdominal pain. States that she has not been able to have her home oxygen for 1 week due to issues concerns. Otherwise, has no other complaints. In ED, vitals significant for BP 162/67, HR 120, RR 24, temp 100.3 ?F, and O2 sat of 78% on RA. Flu and COVID-negative. WBC 20.8, ABG showed pH 7.46, pCO2 30, pO2 94, and CMP unremarkable. UA clean. CTA chest showed interstitial nodular disease throughout lungs, consistent with pneumonia, COPD pattern with multiple areas of airspace obstruction, and negative for PE. Given 1 L NS bolus, methylprednisolone 125 mg x 1, azithromycin/ceftriaxone, and DuoNeb treatment. Admitted for management of sepsis and AHRF secondary to pneumonia and possible COPD exacerbation. Overnight, no acute events. She was seen and examined at bedside following morning and was saturating above 92% on 3 L nasal cannula. No fevers overnight and heart rate and respiratory rate within normal limits. Given that patient is back to her baseline oxygen requirements and on exam wheezing has improved, patient will be discharged with levofloxacin 750 mg for 6 more days and predniso ne for 5 more days. Diagnoses during admission: #Sepsis 2/2 PNA #CAP likely 2/2 to gram positive bacteria vs viral vs fungal #AHRF 2/2 to above #COPD exacerbation #Type 2 diabetes mellitus #GERD #Hypertension #Hyperlipidemia Discharge instructions: - Take amlodipine 10 mg daily until you follow-up with your PCP - Take levofloxacin 750 mg orally daily for 6 more days - Take prednisone two 20 mg tablets daily for 5 more days - Hold lisinopril 40 mg until you follow-up with your PCP - Continue taking all other home medications as prescribed - Use your home oxygen as needed to keep oxygen between 88-92% - Follow-up with your PCP within 1 week of discharge - Return the ED if symptoms worsen or recur ----- Plan discussed with attending physician Dr. rBidges and senior resident physician Dr. Naomi Smith MD PGY-1 Internal Medicine Time Spent with Patient Time attestation: Total time spent providing and/or coordinating discharge services: Exam Vital Signs Temp Pulse Resp BP Pulse Ox O2 Del Method O2 Flow Rate 97.3 F 88 27 H 154/78 H 99 Nasal Cannula 3 06/18/24 08:00 06/18/24 12:00 06/18/24 11:46 06/18/24 08:00 06/18/24 11:46 06/18/24 08:00 06/18/24 11:46 Narrative Exam General: AOx3, laying comfortably in bed, on 3 L NC, able to speak full senten aarti HEENT: NC/AT, mucous membranes moist, bilateral sclera anicteric Cardiovascular: regular rate and rhythm, S1/S2 present, no murmurs appreciated Pulmonary: minimal wheezing appreciated in left upper lung haji Abdominal: soft, non-tender, non-distended, no rebound/guarding, normal bowel sounds present Musculoskeletal: normal ROM, no peripheral edema Skin: warm and dry, intact, no rashes Neuro: CN II-XII intact, no focal deficits Discharge Plan Plan Patient Disposition: HOME (Self Care) Disposition Comment: Hospitalist admit Care Plan Goals: - Take amlodipine 10 mg daily until you follow-up with your PCP - Take levofloxacin 750 mg orally daily for 6 more days - Take prednisone two 20 mg tablets daily for 5 more days - Hold lisinopril 40 mg until you follow-up with your PCP - Continue taking all other home medications as prescribed - Use your home oxygen as needed to keep oxygen between 88-92% - Follow-up with your PCP within 1 week of discharge - Return the ED if symptoms worsen or recur Prescriptions/Referrals Prescriptions/Med Rec: New prednisone 20 mg tablet 40 mg PO QDAY 5 Days Qty: 10 0RF amlodipine 10 mg tablet 10 mg PO QDAY Qty: 90 0RF levofloxacin 750 mg tablet 750 mg PO QDAY 6 Days Qty: 6 0RF benzonatate 200 mg capsule 200 mg PO TID PRN (Reason: cough) Qty: 12 0RF Continued Acetaminophen With Codeine #3 * (TYLENOL WITH CODEINE #3 *) 1 TAB tablet 1 tab PO [id number] PRN (Reason: PAIN) Qty: 0 Patient Comments: FOR PAIN alprazolam 0.25 MG tablet 0.25 mg PO BID Qty: 0 simvastatin [Zocor] 20 MG tablet 20 mg PO HS Qty: 0 montelukast [Singulair] 10 MG tablet 10 mg PO HS Qty: 0 albuterol sulfate [Proventil HFA] 6.7 GM HFA aerosol inhaler 2 puff Inhalation Q4H PRN (Reason: SHORTNESS OF BREATH) Qty: 0 sucralfate [Carafate] 100 mg/mL suspension 5 ml PO QID Qty: 400 0RF Rx Instructions: swish in mouth and swallow; use after food/drink Held lisinopril 40 MG tablet 40 mg PO QDAY Qty: 0 Hold Instructions: Resume on 06/18/24. hold until you see your PCP No Action Ozempic 0.25 mg or 0.5 mg (2 mg/3 mL) pen injector 0.5 mg subcut QWEEK dexilant 60 mg capsule 60 mg PO QDAY amitriptyline 50 mg tablet See Rx Instructions PO QPM Rx Instructions: 50-100 mg orally every evening; Referrals: No Primary/Family,Physician [Primary Care Provider] - Patient/Caregiver Discharge Instructions Print Language: Faroese Stand Alone Forms: Leia Award Info., Patient Portal Info Letter Discharge Order Discharge Orders: Discharge (Routine); Ordered 06/18/24 Ordered By: Shelby Murphy Quality Discharge Quality Measures VTE prophylaxis Attestestation Attestation I have discussed and was present for the essential components of the discharge history, physical examination, diagnosis, and discharge treatment plan with the resident. I agree with the patient's discharge care as documented by the resident and amended herein by me. Que Bridges DO. The patient understood all discharge instructions, all questions were answered satisfactorily. The patient was instructed to return to the Emergency Department is symptoms worsened or persisted. Although this document has been carefully reviewed, there may still be some phonetic and other typographical errors. These errors are purely grammatical due to imperfections in the software program and should not be construed in any way to compromise the substance of the patient's medical care during this visit.
--- NOTE | 2024-06-18 15:11 | PC.SS ---
Rounding Note: Possible d/c home today, pending bowel movement and delivery of oxygen.
--- NOTE | 2024-06-18 15:11 | PC.SS ---
CUSTOMER SERVICE MANAGER informed by medical team that patient can obtain nebulizer on outpatient basis with PCP. CUSTOMER SERVICE MANAGER informed patient and bedside nurse.
[2024-06-18] MEDS: INSULIN LISPRO (AdmeLOG) 1 UNIT/0.01 ML UNIT SC (17:18)
--- NOTE | 2024-06-18 17:43 | PC.SS ---
[employer]PAR[employer] re-sent DME referral on [facility] for oxygen request. [facility] responded indicating that could provide oxygen. [employer] spoke to [facility] staff, Cheikh ; who confirmed oxygen would be delivered tonight. [employer] received follow up call from [facility] stating that patient's insurance was out of network. [employer] re-submitted oxygen referral on [facility] pending responses.
--- NOTE | 2024-06-18 18:02 | PC.SS ---
[facility] will provide patient with home oxygen. Delivery within next 2 hours. MACHINE BUNCH MAKER updated patient and bedside nurse.
--- NOTE | 2024-06-18 19:30 | PC.NURSE ---
PORTABLE OXYGEN TANK CARRIER WITH OXYGEN TANK X4 AND CONCENTRATOR DELIVERED AT BEDSIDE.
--- NOTE | 2024-06-18 20:10 | PC.NURSE ---
BELONGINGS, DISCHARGE PACKET, AND DME SENT WITH PATIENT. FRIEND HERE TO PICK HER UP. PT IS NO SIGNS OF DISTRESS. IV X2 AND TAILINGS MAN REMOVED.
[2024-06-19 12:02] LABS: Cocci Serology, IgG Negative (Negative)
== END 2024-06-18 20:10 | disposition home or self-care (01) | DRG 871 ==
LOC: SERX 06-17 09:28 → SERHOLD 06-17 11:02 → S2NX 06-17 22:22
PROVIDERS: Physician Assistant; Student in an Organized Health Care Education/Training Program; Admitting Provider Student in an Organized Health Care Education/Training Program; Emergency Provider Emergency Medicine; Visit Provider Student in an Organized Health Care Education/Training Program
DX: A41.89 Other specified sepsis (principal); J12.9 Viral pneumonia, unspecified; J96.01 Acute respiratory failure with hypoxia; J44.1 Chronic obstructive pulmonary disease with (acute) exacerbation; J44.0 Chronic obstructive pulmonary disease with (acute) lower respiratory infection; K21.9 Gastro-esophageal reflux disease without esophagitis; E11.9 Type 2 diabetes mellitus without complications; E78.5 Hyperlipidemia, unspecified; I10 Essential (primary) hypertension; Z87.891 Personal history of nicotine dependence; Z99.81 Dependence on supplemental oxygen; Z11.52 Encounter for screening for COVID-19; Z88.6 Allergy status to analgesic agent; Z88.8 Allergy status to other drugs, medicaments and biological substances; Z88.0 Allergy status to penicillin; Z79.4 Long term (current) use of insulin; Z79.84 Long term (current) use of oral hypoglycemic drugs
CPT/HCPCS: 36415; 36600; 71045; 71275; 80048; 80053; 80061; 81001; 82803; 83036; 83735; 83880; 84100; 84145; 84439; 84443; 84484; 85014; 85018; 85025; 86331; 86635; 87040; 87400; 87634; 87811; 94640; A4649; A9270; J0456; J0696; J1643; J1815; J2470; J2919; J7030; J7050; J7512; Q9967

== ENCOUNTER 2024-09-26 07:47 | Day surgery (SDC) | payer MEDICARE, MEDICAID, SELFPAY ==
[2024-09-26] VITALS (11 sets, daily range): BP systolic 116–145; BP diastolic 33–77; PULSE 84–103; RESP 12–20; TEMP 36.7–37.1; O2SAT 95–100; BMI 27.8
--- NOTE | 2024-09-26 07:55 | EDNOTE_ITS ---
ED Abdominal Pain RME/HPI General Chief Complaint: Nausea/Vomiting/Diarrhea Stated complaint: Vomiting, gallstones, fever Time seen by provider: 09/26/24 08:01 Arrival date/time: 09/26/24 07:47 RME / HPI RME / HPI narrative: DR. ABDI MAIN ED EVALUATION: This section includes all my notes and documentations, including HPI, PE, and ED course.? Donnell Abdi MD HPI: 73 year old female with past medical history significant for gallstones presents to the Emergency Department with severe upper abdominal pain for 2 weeks. Associated symptoms include nausea and vomiting since yesterday. No other complaints. ROS: All negative except as documented in HPI. Physical Exam: General:? Alert and oriented.? In severe pain. Eyes:? Conjunctivae and lids clear. ENT:? No nasal congestion.? ? Neck:? Supple. Heart:? RRR. Lungs:? No respiratory distress.? Good air movement.? No rhonchi, wheezing, rales.? Abdomen:?Soft with severe epigastric tenderness. Decreased bowel sounds. No distention. No rebound or guarding. Skin:? Warm and dry.? Neuro:? Alert and oriented X 3.? I reviewed all diagnostic test results. My review of the gallbladder US report is?cholelithiasis. Blood tests and urine tests unremarkable. At this point, diagnoses include Cholecystitis. Treatment here included IV fluid, Zofran, morphine, Dilaudid, Rocephin, and Fla gyl. Some improvement noted. I discussed the case with our surgeon.? About the presentation and exam and diagnostics and treatments here.? And need of further care in the hospital. Will accept the patient for surgery. Donnell Abdi MD Related Data Home Medications ?Medication ?Instructions ?Recorded ?Confirmed Acetaminophen With Codeine #3 * 1 tab PO [id number] PRN P AIN #0 tabs 03/28/17 06/18/24 (TYLENOL WITH CODEINE #3 *) Held on 09/26/24. Instructions: Resume on 10/01/24. albuterol sulfate 90 mcg/actuation 2 puff inhalation Q 4H PRN 03/28/17 06/18/24 aerosol inhaler (Proventil HFA) SHORTNESS OF BREATH #0 inhalations alprazolam 0.25 mg tablet 0.25 mg PO BID #0 tabs 03/2806/18/24 lisinopril 40 mg tablet 40 mg PO QDAY #0 tabs 06/18/24 montelukast 10 mg tablet 10 mg PO HS #0 tabs 03/28/17 06/18/24 (Singulair) simvastatin 20 mg tablet (Zocor) 20 mg PO HS #0 tabs 1 05/29/16 06/18/24 amitriptyline 50 mg tablet See Rx Instructions PO QPM 06/18/24 06/18/24 dexilant 60 mg PO QDAY 06/18/2406/18 semaglutide 0.25 mg or 0.5 mg (2 0.5 mg subcut QWEEK 0 06/18/24 06/18/24 mg/3 mL) subcutaneous pen injector (Apozy) Previous Rx's ?Medication ?Instructions ?Recorded sucralfate 100 mg/mL oral 5 ml PO QID #400 mL 01/31/22 suspension (Carafate) amlodipine 10 mg tablet 10 mg PO QDAY #90 tabs 06/18 benzonatate 200 mg capsule 200 mg PO TID PRN cough #12 caps 06/18/24 docusate sodium 100 mg capsule 100 mg PO BID #40 caps 09/26/24 (Colace) hydrocodone 5 mg-acetaminophen 325 1 tab PO Q6H PRN pa in (scale score 09/26/24 mg tablet 7-10) #15 tabs Allergies Allergy/AdvReac Type Severity Reaction Status Date / Time erythromycin base Allergy Mild Gastrointestinal Verified 09/26/24 14:47 Upset aspirin Allergy Unknown UNKNONW Verified 09/26/24 14:47 diphenhydramine Allergy Unknown UNKNONW Verified 09/26/24 14:47 Penicillins Allergy Unknown UNKNOWN Verified 09/26/24 14:47 Course Quality Measures none Orders Category Date Time Status Patient Condition Routine Admission 09/26/24 09:55 Ordered Bedside COVID-19 Antigen Test NOW Care 09/26/24 11:35 Completed COVID-19 Screening Questionnaire NOW Care 09/26/24 10:02 Completed COVID-19 Screening Questionnaire NOW Care 09/26/24 10:02 Completed COVID-19 Screening Questionnaire NOW Care 09/26/24 13:15 Completed Consent [Obtain Written Consent For:] .NOW Care 09/26/24 09:54 Completed Decision to Admit X1 Care 09/26/24 10:02 Completed Decision to Admit X1 Care 09/26/24 10:02 Completed Decision to Admit X1 Care 09/26/24 13:15 Completed Intake and Output QSHIFT Care 09/26/24 10:00 Ordered Notify provider NEEDED Care 09/26/24 09:55 Completed Saline [Insert IV] NOW Care 09/26/24 08:03 Completed Straight [In and Out Catheter] X1 Care 09/26/24 08:03 Completed Consult to General Surgery Stat Cons 09/26/24 09:56 Ordered US gall bladder Stat Exams 09/26/24 08:03 Completed Amylase Stat Lab 09/26/24 08:51 Completed Bilirubin,Direct Stat Lab 09/26/24 08:51 Completed CBC Stat Lab 09/26/24 08:51 Completed CMP [Comprehensive Metabolic Panel] Stat Lab 09/26/24 08:51 Completed Lipase Stat Lab 09/26/24 08:51 Completed Magnesium Stat Lab 09/26/24 08:51 Completed UA, C/S IF [Urinalysis, C/S if Indicated] Stat Lab 09/26/24 09:50 Completed ALBUTEROL RT 3ml [Proventil Rt 3ml] Med 09/26/24 11:27 Discontinued 2.5 mg INH X1 ONE Acetaminophen Tab [Tylenol Tab] Med 09/26/24 09:54 Discontinued 650 mg PO Q6H PRN KCL 20 mEq/L in D5-1/2NS Med 09/26/24 10:00 Discontinued 20 meq in 1,000 ml IV 70 mls/hr Morphine Inj Med 09/26/24 13:15 Discontinued 4 mg IVP X1 ONE Morphine Inj Med 09/26/24 08:03 Discontinued 6 mg IVP X1 ONE Ondansetron Inj [Zofran Inj] Med 09/26/24 09:54 Discontinued 4 mg IVP Q6H PRN Ondansetron Inj [Zofran Inj] Med 09/26/24 08:03 Discontinued 4 mg IVP X1 ONE Sodium Chloride 0.9% 1000 ml [Ns] 1,000 ml Med 09/26/24 08:03 Discontinued IV 999 mls/hr cefTRIAXone/D5w 1gm IV premix [Rocephin/D5w 1gm IV Med 09/26/24 10:06 Discontinued premix] 1 gm in 50 ml IV X1 metroNIDAZOLE/NS 500 MG IVPB [Flagyl 500 mg IV] Med 09/26/24 10:07 Discontinued 500 mg in 100 ml IV X1 Code Status Routine Oth 09/26/24 09:54 Completed Vital Signs Vital signs: Vital Signs Temperature 98.5 F 09/26/24 08:00 Pulse Rate 103 H 09/26/24 08:00 Respiratory Rate 18 09/26/24 08:00 Blood Pressure 139/77 H 09/26/24 08:00 Pulse Oximetry (%) 97 09/26/24 08:00 Oxygen Delivery Method Room Air 09/26/24 08:00 Abdominal Pain MDM MDM Narrative MDM Narrative:: IHnasa am scribing for and in the presence of Dr. Abdi. Patient data External records reviewed:: [facility] previous records Clinical information provided by:: patient and family Social determinants that could affect healthcare access:: other (specify) (Former smoker) Patient has the following chronic illnesses:: Gallstones, COPD (2 L home O2), GERD, hypertension, hyperlipidemia, and type 2 diabetes mellitus. How is presenting disease/condition affected by chronic disease/condition?: exacerbated by Evaluation data The following diagnostics were reviewed and interpreted by me:: lab results and radiology exam(s) Lab and/or radiology exams considered but not ordered:: none Interpretation Summary: I reviewed all diagnostic test results. My review of the gallbladder US report is?cholelithiasis. Blood tests and urine tests unremarkable. Medications / Prescriptions Medications or Prescriptions considered but not ordered:: none Medication administrations:: Medication Administration History Discontinued Medications Acetaminophen (Acetaminophen 325 Mg Tablet) 650 mg PO Q6H PRN PRN Reason: Fever >101.5 Stop: 10/26/24 09:53 Acetaminophen (Acetaminophen 325 Mg Tablet) 650 mg PO Q6H PRN PRN Reason: Fever >101.5 Stop: 10/26/24 14:02 Albuterol (Albuterol Rt 2.5 Mg/3 Ml Nebu) 2.5 mg INH X1 ONE Stop: 09/26/24 11:28 Last Admin: 09/26/24 11:55 Dose: 2.5 mg Documented By: ANJEL Bupivacaine HCl (Bupivacaine Mpf 0.5% 30 Ml Vial) Confirm Administered Dose 30 ml .ROUTE .STK-MED ONE Stop: 09/26/24 13:44 Dexamethasone Sodium Phosphate (Dexamethasone Sod Phos Inj 10 Mg/Ml Vial) Confirm Administered Dose 10 mg .ROUTE .STK-MED ONE Stop: 09/26/24 13:54 Esmolol HCl (Esmolol Inj 10 Mg/Ml Vial 10 Ml) Confirm Administered Dose 100 mg .ROUTE .STK-MED ONE Stop: 09/26/24 13:54 Fentanyl Citrate (Fentanyl Cit Inj 50 Mcg/Ml Amp 2ml) Confirm Administered Dose 200 mcg .ROUTE .STK-MED ONE Stop: 09/26/24 13:53 Fentanyl Citrate (Fentanyl Cit Inj 50 Mcg/Ml Amp 2ml) 50 mcg IVP Q5M PRN PRN Reason: PAIN SCALE 4-10(Mod-Sev Stop: 09/26/24 16:53 Last Admin: 09/26/24 15:23 Dose: 50 mcg Documented By: JASMINA Hydralazine HCl (Hydralazine Inj 20 Mg/Ml Vial) 5 mg IVP Q20M PRN PRN Reason: SEE COMMENTS Stop: 09/26/24 16:53 Sodium Chloride (Ns) 1,000 mls @ 999 mls/hr IV .Q1H1M ONE Stop: 09/26/24 09:03 Last Infusion: 09/26/24 09:51 Dose: Infused Documented By: Admin: 09/26/24 08:40 Dose: 999 mls/hr Documented By: AYALA Potassium Chloride/Dextrose/Sod Cl (Kcl 20 Meq/L In D5-1/2ns) 20 meq in 1,000 mls @ 70 mls/hr IV .[id number] [facility] Stop: 10/26/24 09:59 Ceftriaxone Sodium/Dextrose (Rocephin/D5w 1gm Iv Premix) 1 gm in 50 mls @ 100 mls/hr IV X1 ONE Stop: 09/26/24 10:35 Last Infusion: 09/26/24 12:12 Dose: Infused Documented By: Admin: 09/26/24 11:42 Dose: 100 mls/hr Documented By: EF Metronidazole (Flagyl 500 Mg Iv) 500 mg in 100 mls @ 100 mls/hr IV X1 ONE Stop: 09/26/24 11:06 Last Infusion: 09/26/24 13:30 Dose: Infused Documented By: Admin: 09/26/24 12:30 Dose: 100 mls/hr Documented By: EF Acetaminophen (Ofirmev Inj) Confirm Administered Dose 100 mls @ ud IV .STK-MED ONE Stop: 09/26/24 14:39 Lidocaine HCl (Lidocaine Inj Pf 2% 2 Ml Vial) Confirm Administered Dose 2 ml .ROUTE .STK-MED ONE Stop: 09/26/24 14:05 Meperidine HCl (Meperidine Inj 50 Mg/Ml Vial) 12.5 mg IVP Q5M PRN PRN Reason: SHIVERING Stop: 09/26/24 16:53 Metoclopramide HCl (Metoclopramide Inj 5 Mg/Ml Vial 2 Ml) Confirm Administered Dose 10 mg .ROUTE .STK-MED ONE Stop: 09/26/24 14:38 Metoprolol Tartrate (Metoprolol Tartrate Inj 1 Mg/Ml Amp 5 Ml) 1 mg IVP Q5M PRN PRN Reason: TACHYCARDIA Stop: 09/26/24 16:53 Midazolam HCl (Midazolam Inj 1 Mg/Ml Vial 2 Ml) Confirm Administered Dose 2 mg .ROUTE .STK-MED ONE Stop: 09/26/24 14:10 Midazolam HCl (Midazolam Inj 1 Mg/Ml Vial 2 Ml) 1 mg IVP Q5M PRN PRN Reason: ANXIETY Stop: 09/26/24 16:53 Morphine Sulfate (Morphine Sulf Inj 10 Mg/Ml Vial) 6 mg IVP X1 ONE Stop: 09/26/24 08:04 Last Admin: 09/26/24 08:41 Dose: 6 mg Documented By: SM Morphine Sulfate (Morphine Sulf Inj 10 Mg/Ml Vial) 4 mg IVP X1 ONE Stop: 09/26/24 13:16 Last Admin: 09/26/24 13:22 Dose: 4 mg Documented By: EF Morphine Sulfate (Morphine Sulf Inj 10 Mg/Ml Vial) 2 mg IVP Q10M PRN PRN Reason: PAIN SCALE 4-10(Mod-Sev Stop: 09/26/24 16:53 Ondansetron HCl (Ondansetron Inj 2 Mg/Ml Inj 2 Ml) 4 mg IVP X1 ONE; Protocol Stop: 09/26/24 08:04 Last Admin: 09/26/24 08:40 Dose: 4 mg Documented By: AYALA Ondansetron HCl (Ondansetron Inj 2 Mg/Ml Inj 2 Ml) 4 mg IVP Q6H PRN PRN Reason: NAUSEA OR VOMITING Stop: 10/26/24 09:53 Ondansetron HCl (Ondansetron Inj 2 Mg/Ml Inj 2 Ml) 4 mg IVP Q6H PRN PRN Reason: NAUSEA OR VOMITING Stop: 10/26/24 14:02 Propofol (Propofol Inj 10 Mg/Ml Vial 20 Ml) Confirm Administered Dose 200 mg IV .STK-MED ONE Stop: 09/26/24 13:53 Sugammadex Sodium (Sugammadex Inj 100 Mg/Ml 2ml Vial) Confirm Administered Dose 200 mg .ROUTE .STK-MED ONE Stop: 09/26/24 14:42 Treatment here from [facility] included IV fluid, Zofran, morphine, Dilaudid, Rocephin, and Flagyl. Consultations Consultation(s) initiated? (list below): Yes Diagnosis Differential diagnosis abdominal pain: abdominal pain, acute appendicitis, calculus of kidney, constipation, diverticulitis, endometriosis, gastroenteritis, pancreatitis, small bowel obstruction and other (acute cholecystitis) Most likely diagnosis given after review of the tests above:: Cholecystitis Admission Indicated Admission indicated?: indicated Explain why admission is indicated or not indicated:: Cholecystitis with intractable pain. Admission Request Was there a request for admission?: Yes Admission Attestation Admission request attestation: Discussed case with our surgeon regarding admission. Discussed patients ED course, exam findings, labs, and radiology results. Agrees to accept the patient for admission. Disposition Plan Disposition Plan: Admit Discharge Plan Plan Patient Disposition: Admit Acute Care w/in Hospital Problem List Clinical Impression: Cholecystitis Patient/Caregiver Discharge Instructions Discharge Activity: activity as tolerated
--- NOTE | 2024-09-26 08:03 | XR_ITS ---
Examination: Abdomen sonogram, Limited Date and time of exam: September 26, 2024 0823 hours INDICATIONS: Epigastric pain beginning today Technique: Real-time sifuentes scale transabdominal sonographic images of the upper abdomen obtained. Findings: 16mm gallstone Normal gallbladder wall Normal common bile duct 0.2 cm Pancreatic head 1.7 cm Liver 15.9 cm fatty infiltration Normal hepatopedal portal venous flow Patent IVC IMPRESSION: Cholelithiasis, negative for cholecystitis
[2024-09-26] MEDS: ONDANSETRON INJ 2 MG/ML INJ 2 ML 4 MG IVP (08:40)
[2024-09-26] MEDS: SODIUM CHLORIDE 0.9% 1000 ML 1,000 ML 999 ML IV (08:40)
[2024-09-26] MEDS: MORPHINE SULF INJ 10 MG/ML VIAL 6 MG IVP (08:41)
[2024-09-26 09:00] LABS: Basophils % (Auto) 0 % (0-2.5); Eosinophils % (Auto) 0 % (0-10); Hematocrit 37.7 % (36.0-46.0); Hemoglobin 12.4 g/dL (12.0-16.0); Immature Granulocytes % (Auto) 0 % (0-0); Immature Granulocytes Auto 0.02 Thou/mm3 (0.00-0.00); Lymphocytes # (Auto) 1.2 Thou/mm3 (1.0-4.8); Lymphocytes % (Auto) 13 % (10-50); Mean Corpuscular HGB Conc 32.9 g/dl (31.0-37.0); Mean Corpuscular Volume 82 fL (80-100); Monocytes # (Auto) 0.9 Thou/mm3 (0.0-0.8); Monocytes % (Auto) 10 % (0-12); Neutrophils # (Auto) 7.6 Thou/mm3 (1.8-7.7); Neutrophils % (Auto) 77 % (37-80); Nucleated Red Blood Cell % 0 /100 WBC (0); Platelet Count 300 Thou/mm3 (140-440); RDW Standard Deviation 39.4 fL (36.4-46.3); White Blood Count 9.8 Thou/mm3 (3.6-11.0)
--- NOTE | 2024-09-26 09:03 | PC.NURSE ---
PATIENT BROUGHT TO ROOM VIA WHEELCHAIR PATIENT PLACED ON MONITOR. PATIENT STATES SHE HAS BEEN HAVING GALLBLADDER PAIN AND ISSUES ON AND OFF FOR 3 MONTHS. PATIENT STATES SHE IS BEING TREATED BY PRIMARY CARE DOCTOR AND AWAITING INSURANCE AUTH FOR SURGERY. PATIENT CAME TO ED DUE TO INCREASE IN PAIN. PATIENT DENIES TAKING MEDICATION TODAY. IV ESTABLISHED, MEDICATION GIVEN. WILL CONTINUE TO MONITOR. CALL LIGHT WITHIN REACH. PATIENT ALSO AWARE OF NEED FOR URINE. PATIENT REFUSED IN AND OUT CATH AT THIS TIME.
[2024-09-26 09:29] LABS: Alanine Aminotransferase 7 U/L (10-49); Albumin, Serum 4.4 gm/dL (3.4-4.8); Albumin/Globulin Ratio 2.2 (1.2-2.2); Alkaline Phosphatase 64 U/L (46-116); Amylase 26 U/L (30-118); Anion Gap 8 (7-16); Aspartate Amino Transferase 14 U/L (0-34); BUN/Creatinine Ratio 17 Ratio (12-20); Bilirubin,Direct 0.4 mg/dL (0.0-0.3); Bilirubin,Total 0.8 mg/dL (0.3-1.2); Blood Urea Nitrogen 15 mg/dL (9-23); Calcium 9.2 mg/dL (8.3-10.6); Calcium (Corrected) 9.2 mg/dL (8.5-10.1); Carbon Dioxide 26.2 mMol/L (20.0-31.0); Chloride 100 mMol/L (98-107); Creatinine (Component) 0.9 mg/dL (0.6-1.3); Estimated Creatinine Clearance 61.9 mL/min (>60); Glucose 141 mg/dL (74-106); Lipase 21 U/L (12-53); Magnesium 1.6 mg/dL (1.6-2.6); Osmolality,Calculated 271 (275-295); Potassium 4.2 mMol/L (3.4-5.1); Sodium 134 mMol/L (136-145); Total Protein 6.4 gm/dL (5.7-8.2); eGFR > 60 See Note
--- NOTE | 2024-09-26 10:17 | PC.CC ---
Patient is a 73 year-old female who presents to the hospital for vomiting, gallstones, and fever. Melissa JOHNSON made [id number]-[id number] contact with patient. ASW introduced self, role, and reason for visit. Patient appeared alert and oriented to self, location, and situation. Patient was pleasant and engaged in initial assessment. Patient confirmed information on demographics and reports to living with her sister, Sarahi. Patient reports that her sister, Sarahi Lomeli is her medical decision maker in the event she is not able to make her own medical decision. Patient reports that sometimes she uses a walker to ambulate when needed. Patient is able to complete her own ADLs. She requires 2L of oxygen as needed. Patient's primary provider is Jose Alberto Allen and she uses [facility] for her medications. Patient reports upon discharge she plans to return back home. career services officer to follow up with any discharge needs.
[2024-09-26 11:40] LABS: Collection Type, Urine Clean Catch
[2024-09-26] MEDS: cefTRIAXone/D5w 1gm IV premix 1 GM/50 ML BAG IV (11:42)
[2024-09-26] MEDS: ALBUTEROL RT 2.5 MG/3 ML NEBU INH (11:55)
[2024-09-26 12:02] LABS: Bilirubin,Urine Negative (Negative); Blood,Urine Negative (Negative); Clarity,Urine Clear (Clear/Hazy); Color,Urine Yellow (Lt Yel-Yel); Culture Indicated,Urine Not Indicated; Glucose, Urine Negative (Negative); Hyaline Casts,Urine < 1 /hpf (0-1); Ketones,Urine 1+ (Negative); Leukocyte Esterase,Urine Negative (Negative); Nitrite,Urine Negative (Negative); Protein,Urine Trace (Neg - Trace); RBC,Urine 1 /hpf (0-3); Specific Gravity,Urine 1.032 (1.001-1.035); Squamous Epithelial Cell,Urine 6 /hpf (0-5); Urobilinogen,Urine Negative mg/dL (0.0-1.0); WBC,Urine < 1 /hpf (0-5)
[2024-09-26] MEDS: metroNIDAZOLE/NS 500 MG IVPB 500 MG/100 ML BAG 100 MG IV (12:30)
[2024-09-26] MEDS: MORPHINE SULF INJ 10 MG/ML VIAL 4 MG IVP (13:22)
--- NOTE | 2024-09-26 13:22 | PD.RESHP ---
Documentation for date of: 09/26/24 Exam Vital Signs Temp Pulse Resp BP Pulse Ox O2 Del Method 98.3 F 100 18 123/65 100 Room Air 09/26/24 10:39 09/26/24 11:55 09/26/24 11:55 09/26/24 10:39 09/26/24 11:55 09/26/24 10:39 Results: Labs 09/26/24 08:51 09/26/24 08:51 Labs: Short CBC 09/26/24 Range/Units 08:51 WBC 9.8 (3.6-11.0) Thou/mm3 Hgb 12.4 (12.0-16.0) g/dL Hct 37.7 (36.0-46.0) % Plt Count 300 (140-440) Thou/mm3 BMP 09/26/24 08:51 Sodium 134 L Potassium 4.2 Chloride 100 Carbon Dioxide 26.2 BUN 15 Creatinine 0.9 Glucose 141 H Calcium 9.2 Liver Function 09/26/24 Range/Units 08:51 Total Bilirubin 0.8 (0.3-1.2) mg/dL Direct Bilirubin 0.4 H (0.0-0.3) mg/dL AST 14 (0-34) U/L ALT 7 L (10-49) U/L Alkaline Phosphatase 64 (46-116) U/L Albumin 4.4 (3.4-4.8) gm/dL Urine 09/26/24 Range/Units 09:50 Urine Color Yellow (Lt Yel-Yel) Urine Clarity Clear (Clear/Hazy) Urine pH 6.0 (5.0-7.0) Ur Specific [place] 1.032 (1.001-1.035) Urine Protein Trace (Neg - Trace) Urine Glucose (UA) Negative (Negative) Quality Measures Quality Measures none Medications Home Medications and Allergies Home Medications ?Medication ?Instructions ?Recorded ?Confirmed ?Type Acetaminophen With Codeine #3 * 1 tab PO [id number] PRN PAIN #0 tabs 03/28/17 06/18/24 History (TYLENOL WITH CODEINE #3 *) albuterol sulfate 90 mcg/actuation 2 puff inhalation Q4H PRN 03/28/17 06/18/24 History aerosol inhaler (Proventil HFA) SHORTNESS OF BREATH #0 inhalations alprazolam 0.25 mg tablet 0.25 mg PO BID #0 tabs 03/28/17 06/18/24 History lisinopril 40 mg tablet 40 mg PO QDAY #0 tabs 03/28/17 06/18/24 History Held on 06/18/24. Instructions: Resume on 06/18/24. hold until you see your PCP montelukast 10 mg tablet 10 mg PO HS #0 tabs 03/28/17 06/18/24 History (Singulair) simvastatin 20 mg tablet (Zocor) 20 mg PO HS #0 tabs 03/28/17 06/18/24 History amitriptyline 50 mg tablet See Rx Instructions PO QPM 06/18/24 06/18/24 History dexilant 60 mg PO QDAY 06/18/24 06/18/24 History semaglutide 0.25 mg or 0.5 mg (2 0.5 mg subcut QWEEK 06/18/24 06/18/24 History mg/3 mL) subcutaneous pen injector (Ozempic) Allergies Allergy/AdvReac Type Severity Reaction Status Date / Time aspirin Allergy Unknown UNKNONW Verified 09/26/24 07:52 diphenhydramine Allergy Unknown UNKNONW Verified 09/26/24 07:52 Penicillins Allergy Unknown UNKNOWN Verified 09/26/24 07:52 Visit Medications Acetaminophen (Acetaminophen 325 Mg Tablet) 650 mg PO Q6H PRN PRN Reason: Fever >101.5 Stop: 10/26/24 09:53 Potassium Chloride/Dextrose/Sod Cl (Kcl 20 Meq/L In D5-1/2ns) 20 meq in 1,000 mls @ 70 mls/hr IV .[id number] SADE Stop: 10/26/24 09:59 Ondansetron HCl (Ondansetron Inj 2 Mg/Ml Inj 2 Ml) 4 mg IVP Q6H PRN PRN Reason: NAUSEA OR VOMITING Stop: 10/26/24 09:53 Discontinued Medications Albuterol (Albuterol Rt 2.5 Mg/3 Ml Nebu) 2.5 mg INH X1 ONE Stop: 09/26/24 11:28 Last Admin: 09/26/24 11:55 Dose: 2.5 mg Sodium Chloride (Ns) 1,000 mls @ 999 mls/hr IV .Q1H1M ONE Stop: 09/26/24 09:03 Last Infusion: 09/26/24 09:51 Dose: Infused Ceftriaxone Sodium/Dextrose (Rocephin/D5w 1gm Iv Premix) 1 gm in 50 mls @ 100 mls/hr IV X1 ONE Stop: 09/26/24 10:35 Last Infusion: 09/26/24 12:12 Dose: Infused Metronidazole (Flagyl 500 Mg Iv) 500 mg in 100 mls @ 100 mls/hr IV X1 ONE Stop: 09/26/24 11:06 Last Admin: 09/26/24 12:30 Dose: 100 mls/hr Morphine Sulfate (Morphine Sulf Inj 10 Mg/Ml Vial) 6 mg IVP X1 ONE Stop: 09/26/24 08:04 Last Admin: 09/26/24 08:41 Dose: 6 mg Morphine Sulfate (Morphine Sulf Inj 10 Mg/Ml Vial) 4 mg IVP X1 ONE Stop: 09/26/24 13:16 Ondansetron HCl (Ondansetron Inj 2 Mg/Ml Inj 2 Ml) 4 mg IVP X1 ONE; Protocol Stop: 09/26/24 08:04 Last Admin: 09/26/24 08:40 Dose: 4 mg
--- NOTE | 2024-09-26 13:54 | PC.NURSE ---
patient taken to surgery
--- NOTE | 2024-09-26 13:57 | PD.SURCONS ---
HPI Consult details Consult date: 09/26/24 Reason for consultation narrative: Right upper quadrant abdominal pain with nausea and vomiting History of present illness: 73-year-old female with history of hypertension, diabetes, GERD, COPD on home oxygen presented to the emergency department with worsening abdominal pain with nausea and vomiting. Her pain started 2 days ago in the epigastric and right upper quadrant radiating to her back. She has had nausea and vomiting has not been able to eat or tolerate any food. She denies fever, chills, jaundice or discoloration of urine or stool. Her liver enzymes are unremarkable, ultrasound showed gallstones. Review of Systems Constitutional Constitutional: Denies chills and Denies fever(s) Cardiovascular Cardiovascular: Denies chest pain Respiratory Respiratory: Denies cough Gastrointestinal Gastrointestinal: Reports abdominal pain, Reports nausea and Reports vomiting Musculoskeletal Musculoskeletal: Reports back pain Hematologic/Lymphatic Hematologic/Lymphatic: Denies easy bleeding and Denies easy bruising Past Medical History Surgical History OTHER SURGICAL HX: Tonsillectomy, partial hysterectomy, temporal artery biopsy Social History SMOKING STATUS: Former smoker SUBSTANCE USE: does not use ALCOHOL: Never Meds Home Medications and Allergies Home Medications ?Medication ?Instructions ?Recorded ?Confirmed ?Type Acetaminophen With Codeine #3 * 1 tab PO [id number] PRN PAIN #0 tabs 03/28/17 06/18/24 History (TYLENOL WITH CODEINE #3 *) albuterol sulfate 90 mcg/actuation 2 puff inhalation Q4H PRN 03/28/17 06/18/24 History aerosol inhaler (Proventil HFA) SHORTNESS OF BREATH #0 inhalations alprazolam 0.25 mg tablet 0.25 mg PO BID #0 tabs 03/28/17 06/18/24 History lisinopril 40 mg tablet 40 mg PO QDAY #0 tabs 03/28/17 06/18/24 History Held on 06/18/24. Instructions: Resume on 06/18/24. hold until you see your PCP montelukast 10 mg tablet 10 mg PO HS #0 tabs 03/28/17 06/18/24 History (Singulair) simvastatin 20 mg tablet (Zocor) 20 mg PO HS #0 tabs 03/28/17 06/18/24 History amitriptyline 50 mg tablet See Rx Instructions PO QPM 06/18/24 06/18/24 History dexilant 60 mg PO QDAY 06/18/24 06/18/24 History semaglutide 0.25 mg or 0.5 mg (2 0.5 mg subcut QWEEK 06/18/24 06/18/24 History mg/3 mL) subcutaneous pen injector (Ozempic) Allergies Allergy/AdvReac Type Severity Reaction Status Date / Time aspirin Allergy Unknown UNKNONW Verified 09/26/24 07:52 diphenhydramine Allergy Unknown UNKNONW Verified 09/26/24 07:52 Penicillins Allergy Unknown UNKNOWN Verified 09/26/24 07:52 Exam Vital Signs Temp Pulse Resp BP Pulse Ox O2 Del Method 98.7 F 99 17 116/62 96 Room Air 09/26/24 13:39 09/26/24 13:39 09/26/24 13:39 09/26/24 13:39 09/26/24 13:39 09/26/24 13:39 Constitutional Constitutional: no acute distress Routine HEENT Exam Eye: Present PERRL (Anicteric sclera) Routine Respiratory Exam Respiratory: Present CTA bilaterally Routine Cardiovascular Exam Cardiovascular: Present RRR Routine Abdominal Exam Abdominal: Present soft, normoactive bowel sounds and tenderness (Right upper quadrant tenderness to deep palpation with guarding, no rebound tenderness or peritonitis at this time); Absent distended Results Results: Laboratory Laboratory results: results reviewed Results: Imaging US - abdomen: report reviewed and image reviewed Assessment & Plan Problem List (1) Biliary calculus with cholecystitis: Status: Acute Plan Will take patient to the operating room for laparoscopic possible open cholecystectomy. Risks include but not limited to infection, bleeding, injury to bowel, liver, stomach, bile duct, retained stone, bile leak, abdominal sepsis and or abdominal abscess, need for further procedure and or operation discussed with the patient. Benefits and alternatives explained to her, all her questions answered, she agreed and consented to proceed with the operation. (1) Biliary calculus with cholecystitis Qualifiers: Cholelithiasis location: gallbladder Cholecystitis acuity: chronic Biliary obstruction: without biliary obstruction Qualified Code(s): K80.10 - Calculus of gallbladder with chronic cholecystitis without obstruction
--- NOTE | 2024-09-26 14:55 | SUR.PHASEI ---
1455: Pt. AAOx4, vitals stable, breathing unlabored, no complaint of pain or nausea, x4 dermabond sites to ABD CDI, no active bleed noted, report received from MD Peters and Dirk RUIZ.
--- NOTE | 2024-09-26 15:18 | PD.SUROPNT ---
Date of Procedure 09/26/24 Pre Op Diagnosis Symptomatic cholelithiasis Post Op Diagnosis Cholelithiasis with cholecystitis Cirrhosis of the liver Procedure Laparoscopic cholecystectomy Findings Moderately distended gallbladder with gallstones and chronic cholecystitis. Moderate amount of nodularities throughout the liver consistent with liver cirrhosis without ascites Procedure Description Patient was brought into the operating room in supine position. After administration of general endotracheal anesthesia abdomen was prepped and draped in standard surgical manner. A Veress needle was inserted through the umbilicus and pneumoperitoneum was obtained up to 15 mmHg. The Veress needle was then removed, a 5 mm infraumbilical incision was made and the 5mm trocar was inserted. Laparoscopic camera was placed. Under direct visualization a laparoscopic camera a 10 mm trocar was placed in subxiphoid and two 5 mm trocars placed in right upper quadrant. There were moderate nodularities throughout the surface of the liver consistent with liver cirrhosis. There was no evidence of ascites. The gallbladder was identified and was noted to be moderately distended with gallstones and chronic cholecystitis. It was retracted cephalad and laterally. Dissection started near the infundibulum of gallbladder where cystic duct and gallbladder junction clearly identified. The cystic duct was circumferentially dissected off the peritoneum and surrounding inflammatory tissue. The critical view of safety was clearly demonstrated. Cystic duct was then divided between 2 endoclips proximally and one distally. The cystic artery was similarly dissected and divided. The gallbladder was then from the liver bed using electrocautery. The gallbladder was then placed inside an Endo Catch and removed from the abdomen utilizing subxiphoid trocar site. The area was copiously and thoroughly washed and irrigated, all the fluid was suctioned and the suction fluid returned clear. Hemostasis achieved using electrocautery. Endoclips noted be in place and intact without any bleeding or any leakage. Hemostasis was adequate and satisfactory. The subxiphoid trocar sites fascial defect was closed with 0 Vicryl using Endo Closure device. Instruments and trocars removed, pneumoperitoneum was evacuated and the incisions closed with 4-0 Monocryl in subcuticular fashion. Instrument needle and sponge counts were all reported to be correct X2. Patient tolerated the procedure well, was extubated, breathing spontaneously and without difficulty and was transferred to postanesthesia care in stable condition. Anesthesia GETA and local Pathology / specimen Other (Gallbladder and contents) Estimated Blood Loss 10 Condition Stable Disposition PACU Surgeon Geovany Galvez MD Surgical Staff Operation Date: 09/26/24 12:30 Case Staff Anesthesiologist: Jesse Peters RNbarrel endshake adjuster: Natalie Ghosh
[2024-09-26] MEDS: fentaNYL CIT INJ 50 mCg/ML AMP 2ML IVP (15:23)
--- NOTE | 2024-09-26 15:50 | SUR.PHASEII ---
1550: No personal belongings paper present, family held onto belongings.
--- NOTE | 2024-09-26 15:50 | SUR.PHASEII ---
1550: Pt. AAOx4, vitals stable, breathing unlabored, no complaint of pain or nausea, x4 dressing to ABD CDI, no active bleed noted, pt. tolerated sips of water well, pt. ambulated to wheelchair with steady gait and no assist, no complications. Gave discharge instructions to the pt. and her ride, both verbalized understanding and had no further questions. Pt. left with all personal belongings.
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
== END 2024-09-26 15:50 | disposition home or self-care (01) ==
LOC: SERX 10:28 → SERHOLD 13:50 → S2EX 09-30 07:57
PROVIDERS: Surgery; Emergency Provider Emergency Medicine; PCP Physician Assistant Medical; Visit Provider Student in an Organized Health Care Education/Training Program
PROC: 0FT44ZZ Resection of Gallbladder, Percutaneous Endoscopic Approach (ICD-10-PCS; CPT 47562; principal; 2024-09-26 12:30)
DX: K80.10 Calculus of gallbladder with chronic cholecystitis without obstruction (principal)
CPT/HCPCS: 47562; 36415; 76705; 80053; 81001; 82150; 82248; 83690; 83735; 85025; 87811; 94640; 96361; 96365; 96367; 96375; 96376; 99285; A4217; A4649; J0131; J0696; J1100; J2250; J2270; J2405; J2704; J2765; J3010; J3490; J7030; J1805; J1836

== ENCOUNTER 2024-10-04 19:59 | Inpatient (IN) | payer MEDICARE, MEDICAID, SELFPAY ==
[2024-10-04 20:00] VITALS: BP 137/86; PULSE 116; RESP 20; TEMP 36.4; O2SAT 94
[2024-10-04 20:04] VITALS: PULSE 104; RESP 19
[2024-10-04 20:08] VITALS: BMI 26.7
--- NOTE | 2024-10-04 21:02 | XR_ITS ---
Examination: AP chest single view TECHNIQUE: Portable AP chest single view Date and time: October 04, 2024 2153 hours Comparison June 16, 2024 INDICATIONS: Chest pain today. FINDINGS: Normal heart size No pneumonia or pulmonary edema The osseous structures are intact IMPRESSION: No active disease
--- NOTE | 2024-10-04 21:02 | EKG_ITS ---
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
--- NOTE | 2024-10-04 21:27 | EDNOTE_ITS ---
ED Abdominal Pain RME/HPI General Chief Complaint: Abdominal Pain Stated complaint: ABD PAIN Time seen by provider: 10/04/24 20:40 Arrival date/time: 10/04/24 19:59 RME / HPI RME / HPI narrative: DR CANTU MAIN ED EVALUATION: 73 y/o female BIB sister presents to ED c/o LLQ abdominal pain and vomiting s/p cholecystectomy x 1 day. Per sister, Cholecystectomy was performed on 09/26/2024. Patient has not been passing gas and has been constipated. Sister gave patient a stool softener yesterday and patient was finally able to have a BM. Patient's sister reports an allergy to Penicillin and Benadryl, both producing rash. Patient denies bloody or coffee ground emesis, diarrhea or any other associated symptoms or aggravating factors. No modifying factors, no radiation, no migration. No pain reported overall. Related Data Home Medications ?Medication ?Instructions ?Recorded ?Confirmed Acetaminophen With Codeine #3 * 1 tab PO [id number] PRN P AIN #0 tabs 03/28/17 06/18/24 (TYLENOL WITH CODEINE #3 *) Held on 09/26/24. Instructions: Resume on 10/01/24. albuterol sulfate 90 mcg/actuation 2 puff inhalation Q 4H PRN 03/28/17 06/18/24 aerosol inhaler (Proventil HFA) SHORTNESS OF BREATH #0 inhalations alprazolam 0.25 mg tablet 0.25 mg PO BID #0 tabs 03/2806/18/24 lisinopril 40 mg tablet 40 mg PO QDAY #0 tabs 06/18/24 montelukast 10 mg tablet 10 mg PO HS #0 tabs 03/28/17 06/18/24 (Singulair) simvastatin 20 mg tablet (Zocor) 20 mg PO HS #0 tabs 1 05/29/16 06/18/24 amitriptyline 50 mg tablet See Rx Instructions PO QPM 06/18/24 06/18/24 dexilant 60 mg PO QDAY 06/18/2406/18 semaglutide 0.25 mg or 0.5 mg (2 0.5 mg subcut QWEEK 0 06/18/24 06/18/24 mg/3 mL) subcutaneous pen injector (Ozempic) Previous Rx's ?Medication ?Instructions ?Recorded sucralfate 100 mg/mL oral 5 ml PO QID #400 mL 01/31/22 suspension (Carafate) amlodipine 10 mg tablet 10 mg PO QDAY #90 tabs 06/18 benzonatate 200 mg capsule 200 mg PO TID PRN cough #12 caps 06/18/24 docusate sodium 100 mg capsule 100 mg PO BID #40 caps 09/26/24 (Colace) hydrocodone 5 mg-acetaminophen 325 1 tab PO Q6H PRN pa in (scale score 09/26/24 mg tablet 7-10) #15 tabs Allergies Allergy/AdvReac Type Severity Reaction Status Date / Time erythromycin base Allergy Mild Gastrointestinal Verified 09/26/24 14:47 Upset aspirin Allergy Unknown UNKNONW Verified 09/26/24 14:47 diphenhydramine Allergy Unknown UNKNONW Verified 09/26/24 14:47 Penicillins Allergy Unknown UNKNOWN Verified 09/26/24 14:47 Review of Systems Review of Systems Systems Reviewed: All systems reviewed, normal except as documented Past Medical History Past Medical History CARDIAC: Positive Cardiac Disorders and Hypertension RESPIRATORY: Positive Chronic Obstructive Pulmonary Disease (COPD) and Asthma ENDOCRINE: Positive Diabetes Mellitus Type 2 ED Exam Narrative Physical exam: GENERAL APPEARANCE: alert and oriented x 4, well-developed, well-nourished, no acute distress VITALS: All vitals were reviewed and the pulse ox is 95% on room air, which is normal according to my interpretation. HEENT: Normocephalic, atraumatic; pupils equal, round, reactive to light; EOMI; mucous membranes pink, moist; oropharynx clear NECK: Supple LUNGS: CTABL; no wheezes, no rales, no rhonchi HEART: Regular rate, regular rhythm; normal S1, S2; no murmurs ABDOMEN: distended; hyperactive BS; soft, diffuse tenderness, no guarding, no rebound; no masses, no organomegaly, no hernia BACK: no CVA tenderness EXTREMITIES: atraumatic; no edema NEUROLOGIC: awake; alert and oriented x4; cranial nerves II-XII grossly intact; no focal sensory or motor deficits PSYCHIATRIC: appropriate mood and affect SKIN: warm, dry, normal color; no rashes Course Quality Measures none Orders Category Date Time Status CT Screening NOW Care 10/04/24 22:03 Active Evaluator NOW Care 10/04/24 21:02 Active EKG (ED ONLY) *Do not use* NOW Care 10/04/24 21:02 Completed Insert NG / OG tube NOW Care 10/04/24 22:55 Active NG / OG Tube to LIS NOW Care 10/04/24 22:[address] abdomen pelvis w con Stat Exams 10/04/24 22:03 Completed CXR1 [XR chest 1V post procedure] Stat Exams 10/04/24 23:27 Completed EKG (ED Only) Stat Exams 10/04/24 21:02 Draft XR chest 1V portable Stat Exams 10/04/24 21:02 Completed B-Type Natriuretic Peptide Stat Lab 10/04/24 21:28 Completed Blood Culture (Lab) Stat Lab 10/04/24 21:28 Received CBC Stat Lab 10/04/24 21:28 Completed Comprehensive Metabolic Panel Stat Lab 10/04/24 21:28 Completed Lactate (Lactic Acid) Stat Lab 10/04/24 21:28 Completed Lactic Acid, 3 HR Stat Lab 10/05/24 00:47 Completed Lipase Stat Lab 10/04/24 21:28 Completed Magnesium Stat Lab 10/04/24 21:28 Completed Partial Thromboplastin Time Stat Lab 10/04/24 21:28 Completed Path Review Blood Smear Stat Lab 10/04/24 21:28 Completed Procalcitonin Stat Lab 10/04/24 21:28 Completed Prothrombin Time with INR Stat Lab 10/04/24 21:28 Completed Troponin I Stat Lab 10/04/24 21:28 Completed Urinalysis Stat Lab 10/04/24 21:03 Ordered Urine Culture Stat Lab 10/04/24 21:03 Ordered Cefoxitin [Mefoxin] 2 gm Med 10/04/24 22:10 Discontinued SODIUM CHLORIDE 0.9% (Popper) [Ns 0.9% (P)] 50 ml IV X1 HYDROmorphone INJ [Dilaudid Inj] Med 10/04/24 22:53 Discontinued 1 mg IVP X1 ONE Morphine Inj Med 10/04/24 21:02 Discontinued 5 mg IVP X1 ONE Ondansetron Inj [Zofran Inj] Med 10/04/24 21:02 Discontinued 4 mg IVP X1 ONE Ondansetron Inj [Zofran Inj] Med 10/04/24 22:57 Discontinued 4 mg IVP X1 ONE Sodium Chloride 0.9% 1000 ml [Ns] 1,000 ml Med 10/04/24 22:04 Discontinued IV 999 mls/hr Vital Signs Vital signs: Vital Signs Temperature 97.5 F 10/04/24 20:00 Pulse Rate 116 H 10/04/24 20:00 Respiratory Rate 20 10/04/24 20:00 Blood Pressure 137/86 H 10/04/24 20:00 Pulse Oximetry (%) 94 L 10/04/24 20:00 Oxygen Delivery Method Room Air 10/04/24 20:00 Abdominal Pain MDM MDM Narrative MDM Narrative:: Scribe Attestation: INikki, am scribing for and in the presence of Dr. Cantu. Provider Notation: Although this document has been carefully reviewed, there may still be some phonetic and other typographical errors.? These errors are purely grammatical due to imperfections in the software program and should not be construed in any way to? compromise the substance of the patient's medical care during this visit. Patient data External records reviewed:: [facility] previous records (Reviewed prior ED records from 09/26/24. Patient was seen for Cholecystitis.) Clinical information provided by:: patient and family (Sister) Social determinants that could affect healthcare access:: none Patient has the following chronic illnesses:: Hypertension, Chronic Obstructive Pulmonary Disease (COPD), Asthma, Diabetes Mellitus Type 2 How is presenting disease/condition affected by chronic disease/condition?: exacerbated by Evaluation data The following diagnostics were reviewed and interpreted by me:: lab results and radiology exam(s) Lab and/or radiology exams considered but not ordered:: None Interpretation Summary: RADIOLOGY Chest X-Ray: Patient: KETAN WILDER [facility]. Record#: [id number] Birthdate: 1950 Age/Sex: 73 / F Location: [facility] Attending Dr: Ordering Physician: Kim Cantu MD Date of Service: 10/04/24 Procedure(s): XR chest 1V portable Accession Number(s): [id number] cc: Delio Goldman MD; Jose Alberto Allen PA-C; Kim Cantu MD~ Examination: AP chest single view TECHNIQUE: Portable AP chest single view Date and time: October 04, 2024 2153 hours Comparison June 16, 2024 INDICATIONS: Chest pain today. FINDINGS: Normal heart size No pneumonia or pulmonary edema The osseous structures are intact IMPRESSION: No active disease Dictated By: Delio Goldman MD Signed By: <Electronically signed by Delio Goldman MD in OV> 10/04/242150 Abdomen/Pelvis CT: Patient: KETAN WILDER. Record#: [id number] Birthdate: 1950 Age/Sex: 73 / F Location: [facility] Attending Dr: Ordering Physician: Kim Cantu MD Date of Service: 10/04/24 Procedure(s): CT abdomen pelvis w con Accession Number(s): [id number] cc: Delio Goldman MD; Jose Alberto Allen PA-C; Kim Cantu MD~ Examination: CT abdomen with intravenous contrast CT pelvis with intravenous contrast 2-D coronal reconstructions 2-D sagittal reconstructions Date and time of exam:October 04, 2024 10:40 PM Comparison January 31, 2022 INDICATIONS: Abdominal pain and vomiting beginning today. CTDI: vol (mGy) 13 DLP: (mGycm) 722 Technique: Multiple axial sections of the abdomen and pelvis have been obtained. 64 slice high-resolution scanner used. 3 mm axial sections have been obtained, post intravenous injection 60 cc Isovue 370 2-D sagittal, coronal reconstructions obtained. Low dose protocols were performed. One or more of the following dose reduction techniques were used; automated exposure control, adjustment of the mA and/or KV according to patient size, use of iterative reconstruction technique. Findings: Fluid distended esophagus Liver is irregular in contour with small anterior right lobe liver cyst Spleen not enlarged Aorta normal size No pancreatic mass No hydronephrosis Multiple fluid distended small bowel loops Urinary bladder intact Decompressed: Colonic diverticulosis Normal appendix Significant osteopenia with diffuse lumbar degenerative disc disease IMPRESSION: High-grade mechanical small bowel obstruction ileal level Dictated By: Delio Goldman MD Signed By: <Electronically signed by Delio Goldman MD in OV> 10/04/24 2353 Repeat Chest X-Ray: Patient: KETAN WILDER Record#: [id number] Birthdate: 1950 Age/Sex: 73 / F Location: [facility] Attending Dr: Ordering Physician: Kim Cantu MD Date of Service: 10/04/24 Procedure(s): XR chest 1V post procedure Accession Number(s): [id number] cc: Delio Goldman MD; Jose Alberto Allen PA-C; Kim Cantu MD~ Examination: AP chest single view TECHNIQUE: AP portable upright chest single view Date and time: October 04, 2024 at 1136 hours INDICATIONS: Post gastric tube placement FINDINGS: Orogastric tube in the stomach satisfactory position Normal heart size No pneumonia or pulmonary edema IMPRESSION: Orogastric tube tip in the stomach satisfactory position Dictated By: Delio Goldman MD Signed By: <Electronically signed by Delio Goldman MD in OV> 10/05/24 0001 Medications / Prescriptions Medications or Prescriptions considered but not ordered:: None Medication administrations:: Medication Administration History Acetaminophen (Acetaminophen 325 Mg Tablet) 650 mg PO Q6H PRN PRN Reason: Mild Pain 1-3 or Fever >100.3 Stop: 11/04/24 01:14 Albuterol/Ipratropium (Albuterol/Ipratropium (Duoneb) Rt Jannie 3 Ml Nebu) 3 ml INH Q6HR PRN PRN Reason: SHORTNESS OF BREATH OR WHEEZE Stop: 11/04/24 01:24 Dextrose (Dextrose 50%-Water Inj 50 Ml Syringe) 25 ml IV Q15MIN PRN PRN Reason: BG 50-70 responsive npo pt Stop: 11/04/24 01:14 Dextrose (Dextrose 50%-Water Inj 50 Ml Syringe) 50 ml IV Q15MIN PRN PRN Reason: BG <50 OR BG <70 & pt unresponsive Stop: 11/04/24 01:14 Glucagon (Glucagon Inj 1 Mg Vial) 1 mg IM Q15MIN PRN PRN Reason: BG <70, and no IV access Heparin Sodium (Porcine) (Heparin Sod Inj 5000 Unit/Ml Vial) 5,000 unit SC Q12HR [facility] Stop: 10/19/24 08:59 Ceftriaxone Sodium/Dextrose (Rocephin/D5w 1gm Iv Premix) 1 gm in 50 mls @ 100 mls/hr IV QDAY SADE Stop: 10/12/24 01:18 Last Infusion: 10/05/24 02:15 Dose: Infused Documented By: Admin: 10/05/24 01:43 Dose: 100 mls/hr Documented By: STACIE Metronidazole (Flagyl 500 Mg Iv) 500 mg in 100 mls @ 200 mls/hr IV Q8HR [facility] Stop: 10/12/24 01:19 Insulin Human Lispro (Insulin Lispro (Admelog) 1 Unit/0.01 Ml Unit) 0 unit SC Q6HR SADE; Protocol Stop: 11/04/24 01:29 Last Admin: 10/05/24 01:54 Dose: Not Given Documented By: STACIE Non-Admin Reason: Other, see note Labetalol HCl (Labetalol Inj 5 Mg/Ml Vial 20 Ml) 10 mg IVP Q4HR PRN PRN Reason: Hypertension Stop: 11/04/24 01:25 Morphine Sulfate (Morphine Sulf Inj 10 Mg/Ml Vial) 1 mg IVP Q4HR PRN PRN Reason: PAIN SCALE 4-10(Mod-Sev Stop: 10/10/24 01:14 Last Admin: 10/05/24 02:14 Dose: 1 mg Documented By: STACIE Ondansetron HCl (Ondansetron Inj 2 Mg/Ml Inj 2 Ml) 4 mg IVP Q6H PRN; Protocol PRN Reason: NAUSEA OR VOMITING Stop: 11/04/24 01:14 Pantoprazole Sodium (Pantoprazole 40 Mg Tablet) 40 mg PO QDAY [facility] Stop: 11/04/24 08:59 Discontinued Medications Ceftriaxone Sodium (Ceftriaxone Sod Inj 1,000 Mg Vial) Confirm Administered Dose 1,000 mg .ROUTE .STK-MED ONE Stop: 10/05/24 01:30 Last Admin: 10/05/24 01:43 Dose: Not Given Documented By: PATRIZIA Non-Admin Reason: Duplicate Medication on eMAR Hydromorphone HCl (Hydromorphone Inj 2 Mg/Ml Vial) 1 mg IVP X1 ONE Stop: 10/04/24 22:54 Last Admin: 10/04/24 23:12 Dose: 1 mg Documented By: STACIE Sodium Chloride (Ns) 1,000 mls @ 999 mls/hr IV .Q1H1M ONE Stop: 10/04/24 23:04 Last Infusion: 10/05/24 00:09 Dose: Infused Documented By: Admin: 10/04/24 22:49 Dose: 999 mls/hr Documented By: STACIE Cefoxitin Sodium 2 gm/ Sodium (Chloride) 50 mls @ 100 mls/hr IV X1 ONE Stop: 10/04/24 22:39 Last Infusion: 10/04/24 23:20 Dose: Infused Documented By: Admin: 10/04/24 22:50 Dose: 100 mls/hr Documented By: STACIE Sodium Chloride (Ns) 1,000 mls @ 999 mls/hr IV .Q1H1M ONE Stop: 10/05/24 02:15 Last Infusion: 10/05/24 03:23 Dose: Infused Documented By: Admin: 10/05/24 01:44 Dose: 999 mls/hr Documented By: STACIE Metronidazole (Flagyl 500 Mg Iv) 500 mg in 100 mls @ 200 mls/hr IV X1 ONE Stop: 10/05/24 01:59 Last Admin: 10/05/24 03:20 Dose: 200 mls/hr Documented By: STACIE Insulin Human Regular (Insulin Hum Regular 1 Unit/0.01 Ml (Per Unit)) 3 unit IV X1 ONE Stop: 10/05/24 01:29 Last Admin: 10/05/24 01:55 Dose: 3 unit Documented By: STACIE Co-signed By: PATRIZIA Morphine Sulfate (Morphine Sulf Inj 10 Mg/Ml Vial) 5 mg IVP X1 ONE Stop: 10/04/24 21:03 Last Admin: 10/04/24 21:58 Dose: 5 mg Documented By: STACIE Ondansetron HCl (Ondansetron Inj 2 Mg/Ml Inj 2 Ml) 4 mg IVP X1 ONE Stop: 10/04/24 21:03 Last Admin: 10/04/24 21:59 Dose: 4 mg Documented By: STACIE Ondansetron HCl (Ondansetron Inj 2 Mg/Ml Inj 2 Ml) 4 mg IVP X1 ONE Stop: 10/04/24 22:58 Last Admin: 10/04/24 23:12 Dose: 4 mg Documented By: STACIE See above Consultations Consultation(s) initiated? (list below): Yes Consultation #1 (Physician, Specialty, Details): Discussed with Dr. Salgado for admission. Reviewed the patient?s HPI, PMHx, lab and/or radiology results. Discussed treatment plan. Will consult an admission to the hospitalist. Time: 01:00 Diagnosis Differential diagnosis abdominal pain: abdominal pain, constipation, diverticulitis, gastroenteritis, pancreatitis and small bowel obstruction Most likely diagnosis given after review of the tests above:: Small bowel obstruction Admission Indicated Admission indicated?: indicated Explain why admission is indicated or not indicated:: Small bowel obstruction Admission Request Was there a request for admission?: Yes Admission Attestation Admission request attestation: Discussed case with [] from Hospitalist service regarding admission. Discussed patients ED course, exam findings, labs, and radiology results. The Hospitalist [agrees,declines] to accept the patient for admission. Disposition Plan Disposition Plan: Admit Discharge Plan Plan Patient Disposition: Admit Acute Care w/in Hospital Problem List Clinical Impression: Small bowel obstruction
[2024-10-04 21:41] LABS: Lactate (Lactic Acid) 2.7 mMol/L (0.4-2.0)
[2024-10-04 21:51] LABS: Basophils # (Auto) 0.2 Thou/mm3 (0.0-0.2); Basophils % (Auto) 0 % (0-2.5); Eosinophils # (Auto) 0.0 Thou/mm3 (0.0-0.5); Eosinophils % (Auto) 0 % (0-10); Hematocrit 42.4 % (36.0-46.0); Hemoglobin 14.2 g/dL (12.0-16.0); Immature Granulocytes Auto 0.28 Thou/mm3 (0.00-0.00); Lymphocytes # (Auto) 2.2 Thou/mm3 (1.0-4.8); Lymphocytes % (Auto) 6 % (10-50); Mean Corpuscular HGB Conc 33.5 g/dl (31.0-37.0); Mean Corpuscular Hemoglobin 27.0 pg (25.0-35.0); Mean Corpuscular Volume 81 fL (80-100); Monocytes # (Auto) 1.6 Thou/mm3 (0.0-0.8); Monocytes % (Auto) 4 % (0-12); Neutrophils # (Auto) 30.9 Thou/mm3 (1.8-7.7); Neutrophils % (Auto) 88 % (37-80); Nucleated Red Blood Cell # 0.00 Thou/mm3 (0.00-0.00); Nucleated Red Blood Cell % 0 /100 WBC (0); Platelet Count 335 Thou/mm3 (140-440); RDW Standard Deviation 39.2 fL (36.4-46.3); Red Blood Count 5.25 Miln/mm3 (4.00-5.20)
[2024-10-04 21:55] VITALS: PULSE 111
[2024-10-04 21:57] LABS: B-Type Natriuretic Peptide 26 pg/mL (0-100); INR 1.0 (0.9-1.3); Partial Thromboplastin Time 26.7 Seconds (22.0-36.0); Prothrombin Time 11.2 Seconds (9.0-12.2)
[2024-10-04] MEDS: MORPHINE SULF INJ 10 MG/ML VIAL 5 MG IVP (21:58)
[2024-10-04 21:59] LABS: White Blood Count 35.1 Thou/mm3 (3.6-11.0)
[2024-10-04] MEDS: ONDANSETRON INJ 2 MG/ML INJ 2 ML 4 MG IVP ×2 (21:59→23:12)
--- NOTE | 2024-10-04 22:03 | XR_ITS ---
Examination: CT abdomen with intravenous contrast CT pelvis with intravenous contrast 2-D coronal reconstructions 2-D sagittal reconstructions Date and time of exam:October 04, 2024 10:40 PM Comparison January 31, 2022 INDICATIONS: Abdominal pain and vomiting beginning today. CTDI: vol (mGy) 13 DLP: (mGycm) 722 Technique: Multiple axial sections of the abdomen and pelvis have been obtained. 64 slice high-resolution scanner used. 3 mm axial sections have been obtained, post intravenous injection 60 cc Isovue 370 2-D sagittal, coronal reconstructions obtained. Low dose protocols were performed. One or more of the following dose reduction techniques were used; automated exposure control, adjustment of the mA and/or KV according to patient size, use of iterative reconstruction technique. Findings: Fluid distended esophagus Liver is irregular in contour with small anterior right lobe liver cyst Spleen not enlarged Aorta normal size No pancreatic mass No hydronephrosis Multiple fluid distended small bowel loops Urinary bladder intact Decompressed: Colonic diverticulosis Normal appendix Significant osteopenia with diffuse lumbar degenerative disc disease IMPRESSION: High-grade mechanical small bowel obstruction ileal level
[2024-10-04 22:07] LABS: Alanine Aminotransferase 14 U/L (10-49); Albumin, Serum 5.1 gm/dL (3.4-4.8); Albumin/Globulin Ratio 2.0 (1.2-2.2); Alkaline Phosphatase 96 U/L (46-116); Anion Gap 18 (7-16); Aspartate Amino Transferase 24 U/L (0-34); BUN/Creatinine Ratio 12 Ratio (12-20); Bilirubin,Total 1.0 mg/dL (0.3-1.2); Blood Urea Nitrogen 14 mg/dL (9-23); Calcium 11.3 mg/dL (8.3-10.6); Calcium (Corrected) 11.3 mg/dL (8.5-10.1); Carbon Dioxide 16.3 mMol/L (20.0-31.0); Chloride 95 mMol/L (98-107); Creatinine (Component) 1.2 mg/dL (0.6-1.3); Estimated Creatinine Clearance 45.6 mL/min (>60); Globulin 2.6 gm/dL (2.3-3.5); Glucose 279 mg/dL (74-106); Lipase 29 U/L (12-53); Magnesium 1.9 mg/dL (1.6-2.6); Osmolality,Calculated 269 (275-295); Potassium 4.2 mMol/L (3.4-5.1); Procalcitonin 0.42 ng/ml (0.0-0.49); Sodium 129 mMol/L (136-145); Total Protein 7.7 gm/dL (5.7-8.2); Troponin I < 0.020 ng/mL (0.0-0.045); eGFR 48 See Note
[2024-10-04 22:12] LABS: Path Review Blood Smear Sent to Pathologist
[2024-10-04] MEDS: SODIUM CHLORIDE 0.9% 1000 ML 1,000 ML 999 ML IV (22:49)
[2024-10-04] MEDS: CEFOXITIN 2 GM in SODIUM CHLORIDE 0.9% (Popper) 50 ML IV (22:50)
[2024-10-04 22:51] VITALS: BP 145/63; PULSE 109; RESP 17; O2SAT 98
--- NOTE | 2024-10-04 22:53 | PC.NURSE ---
DR ODOM INFORMED PT IS STILL VOMITING AND PAIN IS APPROX 6/10. NEW ORDERS PROVIDED
[2024-10-04] MEDS: HYDROmorphone INJ 2 MG/ML VIAL 1 MG IVP (23:12)
--- NOTE | 2024-10-04 23:27 | XR_ITS ---
Examination: AP chest single view TECHNIQUE: AP portable upright chest single view Date and time: October 04, 2024 at 1136 hours INDICATIONS: Post gastric tube placement FINDINGS: Orogastric tube in the stomach satisfactory position Normal heart size No pneumonia or pulmonary edema IMPRESSION: Orogastric tube tip in the stomach satisfactory position
[2024-10-05] VITALS (23 sets, daily range): BP systolic 119–170; BP diastolic 59–99; PULSE 0–109; RESP 13–97; TEMP 36.1–37.1; O2SAT 89–99
--- NOTE | 2024-10-05 | XR_ITS ---
Examination: Abdomen AP single view Technique: AP portable supine abdomen, single view Exam date and time: October 05, 2024 1010 hours INDICATIONS: 9 hour delayed film for small bowel series today. FINDINGS: Contrast in distended small bowel loops, however contrast appears to be present in the right colon IMPRESSION: Suspicious for incomplete small bowel obstruction, additional delayed films will be obtained
--- NOTE | 2024-10-05 | XR_ITS ---
Examination: Abdomen AP single view Technique: AP portable supine abdomen, single view Exam date and time: October 05, 2024 1626 hours INDICATIONS: 5 hour delayed film post small bowel series today, abdominal pain and distention FINDINGS: Contrast remains in distended small bowel loops IMPRESSION: Small bowel obstruction pattern
--- NOTE | 2024-10-05 | XR_ITS ---
Examination: Abdomen AP single view Technique: AP portable supine abdomen, single view Exam date and time: October 05, 2024, 2010 hours INDICATIONS: Abdominal pain and distention this week, 7 hour delayed film post small bowel series. FINDINGS: There appears to be contrast in the colon on this study IMPRESSION: Incomplete small bowel obstruction, recommend follow-up films 10:00 PM, 4:00 AM
--- NOTE | 2024-10-05 | XR_ITS ---
Examination: Abdomen AP single view Technique: AP portable supine abdomen, single view Exam date and time: October 05, 2024, 1627 hours INDICATIONS: Abdominal pain this week, 3 hour delayed film post small bowel series today FINDINGS: Contrast in distended small bowel loops IMPRESSION: Small bowel obstruction pattern Recommend follow-up films 6:00 PM 8:00 PM 10:00 PM
[2024-10-05 00:39] LABS: Reflex Lactate? Y
[2024-10-05 01:06] LABS: Lactic Acid, 3 HR 1.9 mMol/L (0.4-2.0)
[2024-10-05 01:36] LABS: Beta Hydroxybutyrate 0.3 mmol/L (<0.6)
[2024-10-05] MEDS: cefTRIAXone/D5w 1gm IV premix 1 GM/50 ML BAG IV ×2 (01:43→11:03)
[2024-10-05] MEDS: SODIUM CHLORIDE 0.9% 1000 ML 1,000 ML 999 ML IV (01:44)
[2024-10-05 01:48] LABS: Base Excess -2 (-3-3); HCO3 22 mEq/L (20-26); Inspired Oxygen, FIO2 21 %; O2 Saturation 96 % (91-98); PCO2 35 mmHg (32.0-48.0); PO2 76 mmHg (83-108); pH, Arterial 7.40 (7.35-7.45)
[2024-10-05 01:49] LABS: Allen Test Performed/OK; Puncture Site Left Radial
[2024-10-05] MEDS: INSULIN HUM REGULAR 1 UNIT/0.01 ML (PER UNIT) 3 UNIT IV (01:55)
[2024-10-05] MEDS: MORPHINE SULF INJ 10 MG/ML VIAL IVP (02:14)
--- NOTE | 2024-10-05 03:00 | PD.RESHP ---
Documentation for date of: 10/05/24 [facility] History of Present Illness History of present illness: CC: abdominal pain Patient is 73-year-old female with a PMHx of COPD (2 L home O2), hypertension, hyperlipidemia, type 2 diabetes mellitus, GERD and recent cholecystectomy on 09/26/2024. Patient presented with the emergency room via EMS with chieft complain of diffuse abdominal pain worsening over the past 3 Days. Pateint complaining of diffuse abdominal tenderness, pain is 10/10 and sharp. Last bowel movement 2 days ago. Denied melena or hematochezia. Several episodes of emesis and nausea. Patient was prescribed acetaminophen-codeine for cholecystectomy. ER: Blood pressure 137/86, heart rate 116, RR 20, temperature 97.5, SpO2 94% on room air WBC count 35.1 Sodium 129, normal chloride 95 bicarb 16.3, anion gap 18, BUN 14, creatinine 1.2 (baseline 0.9), GFR 48, glucose 278, lactate 2.7, repeat 1.9. Hypercalcemia 11.3, Pro-Haseeb 0.42 beta hydroxybutyrate 0.3 Troponins 0.02 Bolus NS X 1 in ER plus additional Bolus after admission and Cefoxitin *Sepsis Alert Called. PMHx: COPD on home O2, GERD, hypertension, hyperlipidemia, type 2 diabetes mellitus Medications: Lisinopril, simvastatin, alprazolam, famotidine, albuterol inhaler Surgical history: partial hysterectomy and recent cholecysectomy Allergies: NKDA SHx: Smoked 1 pack of cigarettes per day for 30 years quit a few years ago), no alcohol or illicit drug use Full code Patient was admitted for small bowel obstruction, and MINOR, with high anion gap metabolic acidosis Review of Systems Review of Systems Narrative Review of Systems: General appearance: NO weight change, NO fatigue, NO weakness, no fever, NO chills, NO night sweats, No cough Skin: NO rash, NO itching, NO sores, NO moles HEENT: NO Trauma, NO nausea, NO vomiting, NO visual changes, NO blurry vision, NO double vision, NO tinnitus, NO vertigo, NO ear discharge, NO rhinorrhea, NO stuffiness, NO sneezing, NO allergy, NO epistaxis. NO Hoarseness, NO sore throat, NO swollen neck. Cardiac: NO Palpitations, NO dyspnea on exertion, NO orthopnea, NO paroxysmal nocturnal dyspnea, NO edema Respiratory: NO Shortness of Breath, NO Wheezing, NO Cough, NO Sputum, NO hemoptysis GI:NO appetite, YES nausea, Yes vomiting, NO dysphagia,YES changes in bowel frequency, NO stool color, NO diarrhea, Yes constipation-last bowel movement yesterday, NO hemetemesis, NO hemorrhoids, NO melena, NO hematechezia, Yes abdominal pain, NO jaundice Renal: NO frequency, NO hesitancy, NO urgency, NO hematuria, NO nocturia, NO incontinence MSK: NO muscle weakness, NO gout, NO arthritis, NO muscle stiffness Neuro: NO headaches, NO tremors, NO weakness, NO paralysis, NO seizures, NO loss of consciousness, NO numbness. Hem: NO anemia, NO easy bruising/bleeding, NO petechiae, NO purpura Endo: NO heat/cold intolerance, NO excessive sweating, NO polyuria, NO polydipsia, NO polyphagia, NO thyroid problems, Yes diabetes Pysch: NO mood, NO anxiety, NO depression Exam Vital Signs Temp Pulse Resp BP Pulse Ox O2 Del Method O2 Flow Rate 98.7 F 107 H 15 137/99 H 93 L Room Air 2 10/05/24 06:02 10/05/24 06:02 10/05/24 05:31 10/05/24 06:02 10/05/24 06:02 10/05/24 06:02 10/04/24 22:51 Narrative Exam General Appearance: Alert & Oriented X3, well-nourished female who is lying in bed in mild distress secondary to NG tube HEENT: Skull symmetrical and atraumatic. Conjunctivae pale pink and moist. Oral mucosa apear dry. Pupils equal, round, reactive to light and accommodation (PERRL). External ear without lesion or discharge. Cardio: Normal Rate and Rhythm with S1 and S2 heart sounds. No murmurs or extra heart sounds auscultated. No bruits on carotid auscultation. No peripheral edema or cyanosis. Lungs: Symmetric with good expansion. Chest and back non-tender. Breath sounds vesicular without crackles, wheezing or rhonchi Abdomen: tender, distended, hypoactive Reactive Bowel Sounds Neuro: Alert, cooperative, oriented to person, place, and time. Speech clear. CN grossly intact. Upper motor strength 5/5 and Lower motor strength 5/5. Sensation intact. Results: Labs 10/05/24 05:33 10/05/24 05:33 Labs: Short CBC 10/04/24 10/05/24 Range/Units 21:28 05:33 WBC 35.1 H* 22.6 H D (3.6-11.0) Thou/mm3 Hgb 14.2 13.4 (12.0-16.0) g/dL Hct 42.4 41.2 (36.0-46.0) % Plt Count 335 D 235 D (140-440) Thou/mm3 BMP 10/04/24 10/05/24 21:28 05:33 Sodium 129 L 138 Potassium 4.2 4.4 Chloride 95 L 103 Carbon Dioxide 16.3 L 22.3 BUN 14 22 Creatinine 1.2 1.4 H Glucose 279 H 170 H D Calcium 11.3 H 9.3 D Cardiac Enzymes 10/04/24 Range/Units 21:28 Troponin I < 0.020 (0.0-0.045) ng/mL Liver Function 10/04/24 10/05/24 Range/Units 21:28 05:33 Total Bilirubin 1.0 0.4 D (0.3-1.2) mg/dL AST 24 20 (0-34) U/L ALT 14 12 (10-49) U/L Alkaline Phosphatase 96 83 (46-116) U/L Albumin 5.1 H 4.2 D (3.4-4.8) gm/dL Urine 10/05/24 Range/Units 04:30 Urine Color Yellow (Lt Yel-Yel) Urine Clarity Clear (Clear/Hazy) Urine pH 6.0 (5.0-7.0) Ur Specific [place] 1.015 (1.001-1.035) Urine Protein 1+ A (Neg - Trace) Urine Glucose (UA) Negative (Negative) ABG Interpretation ABG results: 10/05/24 01:41 ABG pH 7.40 ABG pCO2 35 ABG pO2 76 L ABG HCO3 22 ABG O2 Saturation 96 ABG Base Excess -2 Quality Measures Quality Measures none Advance care planning discussed with:: patient Medications Home Medications and Allergies Home Medications ?Medication ?Instructions ?Recorded ?Confirmed ?Type Acetaminophen With Codeine #3 * 1 tab PO [id number] PRN PAIN #0 tabs 03/28/17 10/05/24 History (TYLENOL WITH CODEINE #3 *) Held on 09/26/24. Instructions: Resume on 10/01/24. albuterol sulfate 90 mcg/actuation 2 puff inhalation Q4H PRN 03/28/17 10/05/24 History aerosol inhaler (Proventil HFA) SHORTNESS OF BREATH #0 inhalations lisinopril 40 mg tablet 40 mg PO QDAY #0 tabs 03/28/17 10/05/24 History montelukast 10 mg tablet 10 mg PO HS #0 tabs 03/28/17 10/05/24 History (Singulair) simvastatin 20 mg tablet (Zocor) 20 mg PO HS #0 tabs 03/28/17 10/05/24 History amitriptyline 50 mg tablet See Rx Instructions PO QPM 06/18/24 10/05/24 History dexilant 60 mg PO QDAY 06/18/24 10/05/24 History semaglutide 0.25 mg or 0.5 mg (2 0.5 mg subcut QWEEK 06/18/24 10/05/24 History mg/3 mL) subcutaneous pen injector (Ozempic) ipratropium 0.5 mg-albuterol 3 mg ml inhalation 10/05/24 History (2.5 mg base)/3 mL nebulization soln Allergies Allergy/AdvReac Type Severity Reaction Status Date / Time erythromycin base Allergy Mild Gastrointestinal Verified 09/26/24 14:47 Upset aspirin Allergy Unknown UNKNONW Verified 09/26/24 14:47 diphenhydramine Allergy Unknown UNKNONW Verified 09/26/24 14:47 Penicillins Allergy Unknown UNKNOWN Verified 09/26/24 14:47 Visit Medications Albuterol/Ipratropium (Albuterol/Ipratropium (Duoneb) Rt Jannie 3 Ml Nebu) 3 ml INH Q6HR PRN PRN Reason: SHORTNESS OF BREATH OR WHEEZE Stop: 11/04/24 01:24 Dextrose (Dextrose 50%-Water Inj 50 Ml Syringe) 25 ml IV Q15MIN PRN PRN Reason: BG 50-70 responsive npo pt Stop: 11/04/24 01:14 Dextrose (Dextrose 50%-Water Inj 50 Ml Syringe) 50 ml IV Q15MIN PRN PRN Reason: BG <50 OR BG <70 & pt unresponsive Stop: 11/04/24 01:14 Glucagon (Glucagon Inj 1 Mg Vial) 1 mg IM Q15MIN PRN PRN Reason: BG <70, and no IV access Heparin Sodium (Porcine) (Heparin Sod Inj 5000 Unit/Ml Vial) 5,000 unit SC Q12HR [facility] Stop: 10/19/24 08:59 Hydromorphone HCl (Hydromorphone Inj 2 Mg/Ml Vial) 1 mg IVP Q4HR PRN PRN Reason: PAIN SCALE 7-10 (Severe Stop: 10/10/24 07:59 Ceftriaxone Sodium/Dextrose (Rocephin/D5w 1gm Iv Premix) 1 gm in 50 mls @ 100 mls/hr IV QDAY SADE Stop: 10/12/24 01:18 Last Infusion: 10/05/24 02:15 Dose: Infused Metronidazole (Flagyl 500 Mg Iv) 500 mg in 100 mls @ 200 mls/hr IV Q8HR [facility] Stop: 10/12/24 10:59 Insulin Human Lispro (Insulin Lispro (Admelog) 1 Unit/0.01 Ml Unit) 0 unit SC Q6HR SADE; Protocol Stop: 11/04/24 01:29 Last Admin: 10/05/24 06:33 Dose: Not Given Labetalol HCl (Labetalol Inj 5 Mg/Ml Vial 20 Ml) 10 mg IVP Q4HR PRN PRN Reason: Hypertension Stop: 11/04/24 01:25 Ondansetron HCl (Ondansetron Inj 2 Mg/Ml Inj 2 Ml) 4 mg IVP Q6H PRN; Protocol PRN Reason: NAUSEA OR VOMITING Stop: 11/04/24 01:14 Pantoprazole Sodium (Pantoprazole 40 Mg Tablet) 40 mg PO QDAY SADE Stop: 11/04/24 08:59 Discontinued Medications Acetaminophen (Acetaminophen 325 Mg Tablet) 650 mg PO Q6H PRN PRN Reason: Mild Pain 1-3 or Fever >100.3 Stop: 11/04/24 01:14 Hydromorphone HCl (Hydromorphone Inj 2 Mg/Ml Vial) 1 mg IVP X1 ONE Stop: 10/04/24 22:54 Last Admin: 10/04/24 23:12 Dose: 1 mg Hydromorphone HCl (Hydromorphone Inj 2 Mg/Ml Vial) 1 mg IVP X1 ONE Stop: 10/05/24 04:39 Last Admin: 10/05/24 04:54 Dose: 1 mg Hydromorphone HCl (Hydromorphone Inj 2 Mg/Ml Vial) 0.5 mg IVP X1 ONE Stop: 10/05/24 07:34 Sodium Chloride (Ns) 1,000 mls @ 999 mls/hr IV .Q1H1M ONE Stop: 10/04/24 23:04 Last Infusion: 10/05/24 00:09 Dose: Infused Cefoxitin Sodium 2 gm/ Sodium (Chloride) 50 mls @ 100 mls/hr IV X1 ONE Stop: 10/04/24 22:39 Last Infusion: 10/04/24 23:20 Dose: Infused Sodium Chloride (Ns) 1,000 mls @ 999 mls/hr IV .Q1H1M ONE Stop: 10/05/24 02:15 Last Infusion: 10/05/24 03:23 Dose: Infused Metronidazole (Flagyl 500 Mg Iv) 500 mg in 100 mls @ 200 mls/hr IV Q8HR SADE Stop: 10/12/24 06:14 Last Admin: 10/05/24 06:37 Dose: Not Given Metronidazole (Flagyl 500 Mg Iv) 500 mg in 100 mls @ 200 mls/hr IV X1 ONE Stop: 10/05/24 01:59 Last Infusion: 10/05/24 03:50 Dose: Infused Insulin Human Regular (Insulin Hum Regular 1 Unit/0.01 Ml (Per Unit)) 3 unit IV X1 ONE Stop: 10/05/24 01:29 Last Admin: 10/05/24 01:55 Dose: 3 unit Morphine Sulfate (Morphine Sulf Inj 10 Mg/Ml Vial) 5 mg IVP X1 ONE Stop: 10/04/24 21:03 Last Admin: 10/04/24 21:58 Dose: 5 mg Morphine Sulfate (Morphine Sulf Inj 10 Mg/Ml Vial) 1 mg IVP Q4HR PRN PRN Reason: PAIN SCALE 4-10(Mod-Sev Stop: 10/10/24 01:14 Last Admin: 10/05/24 02:14 Dose: 1 mg Ondansetron HCl (Ondansetron Inj 2 Mg/Ml Inj 2 Ml) 4 mg IVP X1 ONE Stop: 10/04/24 21:03 Last Admin: 10/04/24 21:59 Dose: 4 mg Ondansetron HCl (Ondansetron Inj 2 Mg/Ml Inj 2 Ml) 4 mg IVP X1 ONE Stop: 10/04/24 22:58 Last Admin: 10/04/24 23:12 Dose: 4 mg Assessment & Plan Plan Patient is 73-year-old female with a PMHx of COPD (2 L home O2), hypertension, hyperlipidemia, type 2 diabetes mellitus, GERD and recent cholecystectomy on 09/26/2024. #Small bowel #High-grade obstruction Patient presented with a high-grade small bowel obstruction at the ileal level with fluid distended esophagus as noted on abdomen/pelvis CT. Patient was taking opioids and history of abdominal surgery including partial hysterectomy and recent cholecystectomy. Plan - N.p.o. -NG tube - Follow-up with NG tube output-->determine if appropriate for small bowel study -Acetaminophen, Dilaudid - Consult general surgery, Dr Galvez #Sepsis, rule out likely intra-abdominal Patient presented with tachycardia, lactic acid 2.7, repeat 1.9, and elevated WBC count of 35.1. Given recent history of cholecystectomy likely intra-abdominal versus UTI less likely as there is no complaint of urinary symptoms UA positive for WBCs but no esterase epithelial cells present likely contaminated versus less likely pulmonary chest x-ray is unremarkable. Ceftriaxone started as patient has a penicillin allergies Plan -Ceftriaxone (10/05/2024) and Flagyl 10/05/2024 -Bolus x 1 ER and second bolus of NS x 1 after admission -Blood cultures - Urine cultures #Metabolic acidosis, anion gap #Lactic acidosis Patient presented with a high anion gap metabolic acidosis 18 and bicarb 16.3. Lactic acid 2.7 and repeat 1.9. Plan -Treat underlying infectious cause -NS boluse X 2 -lactic acid trending, august d/C #MINOR Patient presented iwth an MINOR as baseline near 0.9 and now increased to 1.2 likely pre-renal given emesis, poor oral intake vs intrinisc renal injury given BUN/Cr 12, monitor urine output vs CKD Plan -HOld home medicaitn of lisinopril -Strict ins and outs -avoid nephrotoxins -renally dose medicaiton -consider adding Normal saline after bolus #Hypertension Holding home medication of Lisinopril. Plan -Labetolol PRN for systolic bP >180 #Hypovolemic Mild Hyponatremia LIkely in the setting of vomitina. Plan -Consider urine eleyctrolytes -Continue to monitor #Hyperglycemia #Diabetes Mellitus type 2, non insulin dependent Paitents home medication likely ozemic. Paitnet is unsure of A1c levels Plan -Slidng Scale -A1c -Lipid Panel -Fasting glucose levels #Hyperlipidemia HOme medication simvastatin. Plan -considered restarting. Atorvastatin -Follow up on lipid panel #Hypercalcemia Likely in secondary to hemoconcentrated in setting of MINOR. Health Maintenance: Disp: Pt is currently admitted to floors for further management of high grade obstruction, awaiting for consult with Dr. Galvez. FEN: NPO DVT: on subQ heparin Q12 Code: Full Code - The patient's plan was discussed with attending Dr. Enriqueta Fletcher MD PGY1 Internal Medicine Attending Provider Attestation/Addendum 73-year-old female with diabetes, hypertension, hyperlipidemia, COPD, recent cholecyst ectomy's admitted for severe abdominal pain with lactic acidosis. White count is 35,000. CT scan showed high-grade small bowel obstruction at the ileal level. The patient is NPO. Empiric antibiotics started. Patient received IV fluids. Monitor and correct electrolyte abnormalities. NG tube to be inserted. Surgical evaluation requested. I discussed with and supervised the resident physician who took care of this patient. I agree with the assessment and plan as above.
[2024-10-05] MEDS: metroNIDAZOLE/NS 500 MG IVPB 500 MG/100 ML BAG 200 MG IV ×2 (03:20→11:33)
[2024-10-05 04:49] LABS: Collection Type, Urine Clean Catch
[2024-10-05] MEDS: HYDROmorphone INJ 2 MG/ML VIAL 1 MG IVP (04:54)
[2024-10-05 05:17] LABS: Bilirubin,Urine Negative (Negative); Blood,Urine Negative (Negative); Calcium Oxalate Crystals,Urine Rare; Clarity,Urine Clear (Clear/Hazy); Color,Urine Yellow (Lt Yel-Yel); Glucose, Urine Negative (Negative); Hyaline Casts,Urine 1 /hpf (0-1); Ketones,Urine 1+ (Negative); Leukocyte Esterase,Urine Negative (Negative); Nitrite,Urine Negative (Negative); PH,Urine 6.0 (5.0-7.0); Protein,Urine 1+ (Neg - Trace); RBC,Urine 16 /hpf (0-3); Squamous Epithelial Cell,Urine 8 /hpf (0-5); Urobilinogen,Urine Negative mg/dL (0.0-1.0); WBC,Urine 7 /hpf (0-5)
[2024-10-05 05:32] LABS: Specific Gravity,Urine 1.015 (1.001-1.035)
[2024-10-05 05:42] LABS: Basophils # (Auto) 0.1 Thou/mm3 (0.0-0.2); Basophils % (Auto) 0 % (0-2.5); Eosinophils # (Auto) 0.0 Thou/mm3 (0.0-0.5); Eosinophils % (Auto) 0 % (0-10); Hematocrit 41.2 % (36.0-46.0); Hemoglobin 13.4 g/dL (12.0-16.0); Immature Granulocytes Auto 0.12 Thou/mm3 (0.00-0.00); Lymphocytes # (Auto) 1.2 Thou/mm3 (1.0-4.8); Lymphocytes % (Auto) 5 % (10-50); Mean Corpuscular HGB Conc 32.5 g/dl (31.0-37.0); Mean Corpuscular Hemoglobin 27.1 pg (25.0-35.0); Mean Corpuscular Volume 83 fL (80-100); Monocytes # (Auto) 1.6 Thou/mm3 (0.0-0.8); Monocytes % (Auto) 7 % (0-12); Neutrophils # (Auto) 19.6 Thou/mm3 (1.8-7.7); Neutrophils % (Auto) 87 % (37-80); Nucleated Red Blood Cell # 0.00 Thou/mm3 (0.00-0.00); Nucleated Red Blood Cell % 0 /100 WBC (0); Platelet Count 235 Thou/mm3 (140-440); RDW Standard Deviation 41.0 fL (36.4-46.3); Red Blood Count 4.95 Miln/mm3 (4.00-5.20); White Blood Count 22.6 Thou/mm3 (3.6-11.0)
[2024-10-05 06:18] LABS: Glucose Estimated Average 103 mg/dL (80-131); Hemoglobin A1C 5.2 % Hgb (4.8-6.0)
[2024-10-05 06:27] LABS: Alanine Aminotransferase 12 U/L (10-49); Albumin, Serum 4.2 gm/dL (3.4-4.8); Albumin/Globulin Ratio 1.8 (1.2-2.2); Alkaline Phosphatase 83 U/L (46-116); Anion Gap 13 (7-16); Aspartate Amino Transferase 20 U/L (0-34); BUN/Creatinine Ratio 16 Ratio (12-20); Bilirubin,Total 0.4 mg/dL (0.3-1.2); Blood Urea Nitrogen 22 mg/dL (9-23); Calcium 9.3 mg/dL (8.3-10.6); Calcium (Corrected) 9.3 mg/dL (8.5-10.1); Carbon Dioxide 22.3 mMol/L (20.0-31.0); Cardiac Risk Estimate 4.2 RATIO (3.7-5.6); Chloride 103 mMol/L (98-107); Cholesterol 146 mg/dL (132-200); Creatinine (Component) 1.4 mg/dL (0.6-1.3); Estimated Creatinine Clearance 39.1 mL/min (>60); Globulin 2.3 gm/dL (2.3-3.5); Glucose 170 mg/dL (74-106); HDL Cholesterol 35 mg/dL (40-60); LDL Cholesterol,Calculated 76 mg/dL (0-130); Magnesium 1.9 mg/dL (1.6-2.6); Osmolality,Calculated 282 (275-295); Potassium 4.4 mMol/L (3.4-5.1); Sodium 138 mMol/L (136-145); Total Protein 6.5 gm/dL (5.7-8.2); Triglycerides 176 mg/dL (30-150); eGFR 39 See Note
--- NOTE | 2024-10-05 07:05 | PC.NURSE ---
MARIETTA SARABIA RECEIVED AT THIS TIME; PER SHANNAN RUIZ, PT IS A TELE ADMIT FOR SBO. PT A&OX4, GCS 15. PT HAD A CHOLECYSTECTOMY DONE BY DR. ANTHONY ABOUT A WEEK AGO. YESTERDAY, PT STARTED C/O ABD PAIN WITH N/V. PT CAME IN VOMITING. NG TUBE WAS PLACED IN L NARE, 18 ANGUILLAN, ON LOW INTERMITTENT SUCTION, 55CM ON THE NARE. PT HAS 20G IV TO R FOREARM. PT CONNECTED TO MONITORS AT THIS TIME. PT SITTING UP IN BED, C/O 9/10 MID-LOWER ABD PAIN X2 DAYS AGO.
--- NOTE | 2024-10-05 07:33 | PC.NURSE ---
DR. James EASLEY AT BEDSIDE AND MADE AWARE THAT PT C/O ABD PAIN 8/10 AT THIS TIME AND REQUESTING MORE PAIN MEDS; MADE AWARE PT RECEIVED 1MG OF DILAUDID IV PUSH AROUND [address] EASLEY, GIVE PT 0.5 MG DILAUDID IV PUSH ONE TIME.
[2024-10-05] MEDS: HYDROmorphone INJ 2 MG/ML VIAL 0.5 MG IVP (07:43)
[2024-10-05] MEDS: HEPARIN SOD INJ 5000 UNIT/ML VIAL SC ×2 (08:52→20:23)
--- NOTE | 2024-10-05 09:33 | PC.NURSE ---
CALLED AND SPOKE TO DR. ANTHONY; RN SEEKING CLARIFICATION WHEN MD WILL COME AND SEE PT; PER DR. ANTHONY, I HAVE A PROCEDURE TO DO FIRST, THEN AFTER, I WILL COME SEE PT.
--- NOTE | 2024-10-05 10:53 | PD.SURCONS ---
HPI Consult details Consult date: 10/05/24 Reason for consultation narrative: Small bowel obstruction History of present illness: 73-year-old female with history of hypertension, diabetes, GERD, COPD on home oxygen abdomen laparoscopic cholecystectomy about 9 days ago revealed cholelithiasis with cholecystitis and cirrhosis of the liver. She was discharged home and was doing well initially. Over the past 2 days she started developing abdominal pain with nausea and vomiting. Her last bowel movement was 2 days ago. Upon presentation to the emergency department CT scan was obtained that revealed dilated loops of small bowel concerning for high-grade small bowel obstruction. An NG tube was placed. Meds Home Medications and Allergies Home Medications ?Medication ?Instructions ?Recorded ?Confirmed ?Type Acetaminophen With Codeine #3 * 1 tab PO [id number] PRN PAIN #0 tabs 03/28/17 06/18/24 History (TYLENOL WITH CODEINE #3 *) Held on 09/26/24. Instructions: Resume on 10/01/24. albuterol sulfate 90 mcg/actuation 2 puff inhalation Q4H PRN 03/28/17 06/18/24 History aerosol inhaler (Proventil HFA) SHORTNESS OF BREATH #0 inhalations alprazolam 0.25 mg tablet 0.25 mg PO BID #0 tabs 03/28/17 06/18/24 History lisinopril 40 mg tablet 40 mg PO QDAY #0 tabs 03/28/17 06/18/24 History montelukast 10 mg tablet 10 mg PO HS #0 tabs 03/28/17 06/18/24 History (Singulair) simvastatin 20 mg tablet (Zocor) 20 mg PO HS #0 tabs 03/28/17 06/18/24 History amitriptyline 50 mg tablet See Rx Instructions PO QPM 06/18/24 06/18/24 History dexilant 60 mg PO QDAY 06/18/24 06/18/24 History semaglutide 0.25 mg or 0.5 mg (2 0.5 mg subcut QWEEK 06/18/24 06/18/24 History mg/3 mL) subcutaneous pen injector (Ozempic) Allergies Allergy/AdvReac Type Severity Reaction Status Date / Time erythromycin base Allergy Mild Gastrointestinal Verified 09/26/24 14:47 Upset aspirin Allergy Unknown UNKNONW Verified 09/26/24 14:47 diphenhydramine Allergy Unknown UNKNONW Verified 09/26/24 14:47 Penicillins Allergy Unknown UNKNOWN Verified 09/26/24 14:47 Exam Vital Signs Temp Pulse Resp BP Pulse Ox O2 Del Method O2 Flow Rate 97.9 F 108 H 18 137/61 H 94 L Room Air 2 10/05/24 09:18 10/05/24 09:18 10/05/24 09:18 10/05/24 09:18 10/05/24 09:18 10/05/24 09:18 10/04/24 22:51 Constitutional Constitutional: no acute distress Routine Abdominal Exam Comments: Abdomen is soft and mildly distended. She has hypoactive bowel sounds. She has mild tenderness to deep palpation throughout the abdomen, no rebound tenderness or peritonitis at this time. Incisions are clean, dry and intact Results Results: Laboratory Laboratory results: results reviewed Results: Imaging CT scan - abdomen: report reviewed and image reviewed CT scan - pelvis: report reviewed and image reviewed Assessment & Plan Additional Assessment Additional comments: Small bowel obstruction Plan Agree with NG tube decompression. Increase ambulation. Bleed to get small bowel series
[2024-10-05] MEDS: MORPHINE SULF INJ 10 MG/ML VIAL 2 MG IVP ×5 (11:05→22:33)
--- NOTE | 2024-10-05 11:10 | XR_ITS ---
Examination: Small bowel series with KUBs Date and time: September 27, 2024 1140 hrs. Indications: Abdominal pain and distention this week dilated small bowel loops on CT abdomen pelvis yesterday Technique: [employer] AP supine abdomen orogastric tube proximal stomach 1 minute 30 minute and 1 hours films demonstrate contrast in distended small bowel loops Impression: Small bowel obstruction pattern, recommend follow-up films 4:00 PM 6:00 PM 8:00 PM
[2024-10-05] MEDS: SODIUM CHLORIDE 0.9% 1000 ML 1,000 ML 80 ML IV (11:32)
--- NOTE | 2024-10-05 14:36 | ESPR_ITS ---
Documentation for date of: 10/05/24 Subjective Subjective Interval history: Patient examined at bedside. Continues to have abdominal pain due to SBO. Denies any vomiting episodes but still has some nausea, no flatulence. Last bowel movement was on . NG tube was successfully placed and continuing decompression. Will start Gastrografin series and follow-up. Surgery Dr Galvez on board. Appreciate recommendations, he is in agreement with current plan. MINOR worsening with creatinine 1.4, lactic acid downtrending. Continuing fluids and low intermittent suctioning with pain management. Continue ceftriaxone and Flagyl with plan to de-escalate antibiotics tomorrow. Exam Vital Signs Temp Pulse Resp BP Pulse Ox O2 Del Method O2 Flow Rate 97.5 F 102 H 20 119/88 H 95 Room Air 2 10/05/24 14:10/05/24 14:10/05/24 14:10/05/24 14:10/05/24 14:10/05/24 14:10/04/24 22:51 Narrative Exam General:Elderly female, distress from pain, cooperative but irritable HEENT: NCAT, No JVD noted. Mucosa moist. Pupils are equal and reactive to light bilaterally Cardiovascular: Normal S1 and S2. Regular rate and rhythm. Respiratory: Lungs are clear to auscultation bilaterally. No wheezing or crackles heard. Abdomen: Soft, diffuse tender, not distended, hypoactive bowel sounds. Skin: Warm to touch, dry, no rashes noted Musculoskeletal: No gross injuries. Able to move all 4 extremities. No pitting edema Neuro: Alert and oriented x3. No focal neuro deficits. Psych: normal Objective Labs 10/06/24 05:16 10/06/24 05:16 Labs: Laboratory Results - last 24 hr 10/04/24 10/05/24 10/05/24 21:28 00:47 01:41 WBC 35.1 H* RBC 5.25 H Hgb 14.2 Hct 42.4 MCV 81 MCH 27.0 MCHC 33.5 RDW Std Deviation 39.2 Plt Count 335 D Neut % (Auto) 88 H Lymph % (Auto) 6 L [place] % (Auto) 4 Eos % (Auto) 0 Baso % (Auto) 0 Neut # (Auto) 30.9 H Lymph # (Auto) 2.2 [place] # (Auto) 1.6 H Eos # (Auto) 0.0 Baso # (Auto) 0.2 Immature Gran # (Auto) 0.28 H Absolute Nucleated RBC 0.00 Immature Gran % 1 H Nucleated RBC % 0 Smear Path Review Sent to Pathologist PT 11.2 INR 1.0 APTT 26.7 Puncture Site Left Radial ABG pH 7.40 ABG pCO2 35 ABG pO2 76 L ABG HCO3 22 ABG O2 Saturation 96 ABG Base Excess -2 FiO2 21 Sodium 129 L Potassium 4.2 Chloride 95 L Carbon Dioxide 16.3 L Anion Gap 18 H BUN 14 Creatinine 1.2 Estim Creat Clear Calc 45.6 L eGFR 48 L BUN/Creatinine Ratio [address] Glu mg/dL Hemoglobin A1c Calculated Osmolality 269 L Lactic Acid 2.7 H 1.9 Calcium 11.3 H Corrected Calcium 11.3 H Magnesium 1.9 Total Bilirubin 1.0 AST 24 ALT 14 Alkaline Phosphatase 96 Troponin I < 0.020 B-Natriuretic Peptide 26 Total Protein 7.7 Albumin 5.1 H Globulin 2.6 Albumin/Globulin Ratio 2.0 Triglycerides Cholesterol LDL Cholesterol, Calc HDL Cholesterol Cholesterol/HDL Ratio Lipase 29 Beta-Hydroxybutyrate/Acetoacetate 0.3 Procalcitonin 0.42 Ur Collection Type Urine Color Urine Clarity Urine pH Ur Specific [place] Urine Protein Urine Glucose (UA) Urine Ketones Urine Blood Urine Nitrite Urine Bilirubin Urine Urobilinogen (Auto) Ur Leukocyte Esterase Urine RBC Urine WBC Ur Squamous Epith Cells Calcium Oxalate Crystal Urine Bacteria Hyaline Casts 10/05/24 10/05/24 04:30 05:33 WBC 22.6 H D RBC 4.95 Hgb 13.4 Hct 41.2 MCV 83 MCH 27.1 MCHC 32.5 RDW Std Deviation 41.0 Plt Count 235 D Neut % (Auto) 87 H Lymph % (Auto) 5 L [place] % (Auto) 7 Eos % (Auto) 0 Baso % (Auto) 0 Neut # (Auto) 19.6 H Lymph # (Auto) 1.2 [place] # (Auto) 1.6 H Eos # (Auto) 0.0 Baso # (Auto) 0.1 Immature Gran # (Auto) 0.12 H Absolute Nucleated RBC 0.00 Immature Gran % 1 H Nucleated RBC % 0 Smear Path Review PT INR APTT Puncture Site ABG pH ABG pCO2 ABG pO2 ABG HCO3 ABG O2 Saturation ABG Base Excess FiO2 Sodium 138 Potassium 4.4 Chloride 103 Carbon Dioxide 22.3 Anion Gap 13 BUN 22 Creatinine 1.4 H Estim Creat Clear Calc 39.1 L eGFR 39 L BUN/Creatinine Ratio [address] Glu mg/dL 103 Hemoglobin A1c 5.2 Calculated Osmolality 282 Lactic Acid Calcium 9.3 D Corrected Calcium 9.3 D Magnesium 1.9 Total Bilirubin 0.4 D AST 20 ALT 12 Alkaline Phosphatase 83 Troponin I B-Natriuretic Peptide Total Protein 6.5 Albumin 4.2 D Globulin 2.3 Albumin/Globulin Ratio 1.8 Triglycerides 176 H Cholesterol 146 LDL Cholesterol, Calc 76 HDL Cholesterol 35 L Cholesterol/HDL Ratio 4.2 Lipase Beta-Hydroxybutyrate/Acetoacetate Procalcitonin Ur Collection Type Clean Catch Urine Color Yellow Urine Clarity Clear Urine pH 6.0 Ur Specific [place] 1.015 Urine Protein 1+ A Urine Glucose (UA) Negative Urine Ketones 1+ A Urine Blood Negative Urine Nitrite Negative Urine Bilirubin Negative Urine Urobilinogen (Auto) Negative Ur Leukocyte Esterase Negative Urine RBC 16 H Urine WBC 7 H Ur Squamous Epith Cells 8 H Calcium Oxalate Crystal Rare Urine Bacteria None Hyaline Casts 1 ABG Interpretation ABG results: 10/05/24 01:41 ABG pH 7.40 ABG pCO2 35 ABG pO2 76 L ABG HCO3 22 ABG O2 Saturation 96 ABG Base Excess -2 Quality Measures Quality Measures none Advance care planning discussed with:: patient Assessment & Plan Assessment Current Active Medications: Generic Name Dose Route Start Last Admin Trade Name Freq PRN Reason Stop Dose Admin Albuterol/Ipratropium 3 ml 10/05/24 01:25 Albuterol/Ipratropium (Duoneb) Rt Jannie 3 Ml Nebu INH 11/04/24 01:24 Q6HR PRN SHORTNESS OF BREATH OR WHEEZE Dextrose 25 ml 10/05/24 01:15 Dextrose 50%-Water Inj 50 Ml Syringe IV 11/04/24 01:14 Q15MIN PRN BG 50-70 responsive npo pt Dextrose 50 ml 10/05/24 01:15 Dextrose 50%-Water Inj 50 Ml Syringe IV 11/04/24 01:14 Q15MIN PRN BG <50 OR BG <70 & pt unresponsive Glucagon 1 mg 10/05/24 01:15 Glucagon Inj 1 Mg Vial IM Q15MIN PRN BG <70, and no IV access Heparin Sodium (Porcine) 5,000 unit 10/05/24 09:00 10/05/24 08:52 Heparin Sod Inj 5000 Unit/Ml Vial SC 10/19/24 08:59 5,000 unit Q12HR SADE Administration Ceftriaxone Sodium/Dextrose 1 gm in 50 mls @ 100 mls/hr 10/05/24 01:19 10/05/24 11:33 Rocephin/D5w 1gm Iv Premix IV 10/12/24 01:18 Infused QDAY SADE Infusion Metronidazole 500 mg in 100 mls @ 200 mls/hr 10/05/24 11:00 10/05/24 12:05 Flagyl 500 Mg Iv IV 10/12/24 10:59 Infused Q8HR SADE Infusion Sodium Chloride 1,000 mls @ 80 mls/hr 10/05/24 11:11 10/05/24 11:32 Ns IV 10/05/24 23:40 80 mls/hr .[id number] ONE Administration Insulin Human Lispro 0 unit 10/05/24 01:30 10/05/24 06:33 Insulin Lispro (Admelog) 1 Unit/0.01 Ml Unit SC 11/04/24 01:29 Not Given Q6HR SADE Protocol Labetalol HCl 10 mg 10/05/24 01:26 Labetalol Inj 5 Mg/Ml Vial 20 Ml IVP 11/04/24 01:25 Q4HR PRN Hypertension Morphine Sulfate 2 mg 10/05/24 10:56 10/05/24 14:22 Morphine Sulf Inj 10 Mg/Ml Vial IVP 10/08/24 10:55 2 mg Q2H PRN Administration PAIN Ondansetron HCl 4 mg 10/05/24 01:15 Ondansetron Inj 2 Mg/Ml Inj 2 Ml IVP 11/04/24 01:14 Q6H PRN NAUSEA OR VOMITING Protocol Pantoprazole Sodium 40 mg 10/05/24 09:00 10/05/24 08:52 Pantoprazole Inj 40 Mg Vial IV 11/04/24 08:59 40 mg QDAY SADE Administration Plan Patient is 73-year-old female with a PMHx of COPD (2 L home O2), hypertension, hyperlipidemia, type 2 diabetes mellitus, GERD and recent cholecystectomy on 09/26/2024. LBM was on . Surgery Dr. Galvez consulted. Will admit for managment of SBO. #Small bowel obstruction #High-grade obstruction Patient presented with a high-grade small bowel obstruction at the ileal level with fluid distended esophagus as noted on abdomen/pelvis CT. Patient was taking opioids and history of abdominal surgery including partial hysterectomy and recent cholecystectomy. Denies previous SBO in the past. Plan - Consult general surgery, Dr Galvez, appreciate recommendations - N.p.o. -NG tube LIS - Follow-up with NG tube output-->determine if appropriate for small bowel study -Acetaminophen, Dilaudid -start gastrograffin series #Sepsis 2/2 abdominal infection vs UTI Patient presented with tachycardia, lactic acid 2.7, repeat 1.9, and elevated WBC count of 35.1. Sepsis due to abdominal infection or UTI with acute sepsis-related organ dysfunction as evidence by MINOR. Given recent history of cholecystectomy likely intra-abdominal versus UTI. She is denying urinary symptoms, low suspicion of UTI. Imaging also not indicating any sort of abdominal abscess. UA positive for WBCs but no esterase, positive epithelial cells likely contaminated. Ceftriaxone started as patient has a penicillin allergies Plan -Ceftriaxone (10/05/2024) -Flagyl (10/05/2024 -de escelate tomorrow -Blood cultures pending - Urine cultures pending #MINOR Cr on admission 1.2 (baseline near 0.9). Likely pre-renal given emesis and poor oral intake vs intrinisc. Renal injury given BUN/Cr 12. Plan -maintenance fluids -avoid nephrotoxic agents -daily CMP #Hypertension Holding home medication of Lisinopril due to controlled BP. Plan -Labetolol PRN for systolic bP >180 #Non insulin dependent diabetes Mellitus type 2, well controlled Paitents home medication ozemic. A1c 5.2 on this admission. Plan -ACHS glucose checks -Sliding Scale insulin -Lipid Panel -Fasting glucose levels #Hyperlipidemia Home medication simvastatin 20mg daily. Plan -resume pending med rec -Follow up on lipid panel #Hypercalcemia Likely in secondary to hemoconcentrated in setting of MINOR. -CMP #COPD She uses 2L oxygen at home and duonebs. -duoneb q4hr PRN -goal O2 88-92% #Metabolic acidosis, anion gap-resolved #Lactic acidosis-resolved Health Maintenance: Disp: NG for SBO FEN: NPO DVT: on subQ heparin Q12 Code: Full Code The patient's management plan was discussed with my attending physician Dr. Lopez. Anay Anna, PGY-1 Attending Provider Attestation/Addendum I have examined the patient, reviewed labs and imaging findings, discussed the case with the resident(s), and reviewed entered orders. I agree with the plan of care as outlined in this note, with these additional summaries/recommendations: Patient and patient's sister have seen at bedside. Patient is seen with NG tube in place with significant output in jug. I discussed with patient that CT abdomen and pelvis showed high-grade mechanical small bowel obstruction at the ileal level. She denies having BM or passing gas. Patient was seen by general surgery and in agreement with current management. We will order small bowel series. Pain management as needed. Severe leukocytosis present and patient was also diagnosed with sepsis on admission with evidence of endorgan damage with MINOR. Possibly secondary to intra-abdominal source versus UTI. Urine and blood cultures taken, follow-up results when available. Continue IV antibiotics. Continue IV maintenance fluids for MINOR. Hold home antihypertensive for now for soft blood pressure. Continue insulin sliding scale with Accu-Cheks for history of diabetes mellitus type 2. We will order a breathing treatment as patient reports she has a history of COPD and uses DuoNebs at home. Lactic acidosis has resolved. Patient updated on the plan and in agreement. All questions answered to satisfaction. Please see residents note for additional details and management. Dr. John MD
[2024-10-05] MEDS: ALBUTEROL/IPRATROPIUM (Duoneb) RT SOL 3 ML NEBU INH ×2 (16:45→22:50)
[2024-10-05] MEDS: metroNIDAZOLE/NS 500 MG IVPB 500 MG/100 ML BAG 100 MG IV ×2 (18:42→22:09)
[2024-10-06] VITALS (10 sets, daily range): BP systolic 126–154; BP diastolic 58–70; PULSE 68–105; RESP 13–96; TEMP 36–36.8; O2SAT 95–99; BMI 28.1
[2024-10-06] MEDS: MORPHINE SULF INJ 10 MG/ML VIAL 2 MG IVP ×7 (00:35→20:34)
--- NOTE | 2024-10-06 02:00 | XR_ITS ---
Examination: Abdomen AP single view Technique: AP portable supine abdomen, single view Exam date and time: October 06, 2024, 0147 hours INDICATIONS: Abdominal pain and distention this week, 13 hour delayed film for small bowel series. FINDINGS: Contrast present throughout the colon IMPRESSION: Negative for complete small bowel obstruction, no further films are needed
[2024-10-06] MEDS: metroNIDAZOLE/NS 500 MG IVPB 500 MG/100 ML BAG 200 MG IV (05:06)
[2024-10-06 05:51] LABS: Basophils # (Auto) 0.1 Thou/mm3 (0.0-0.2); Basophils % (Auto) 0 % (0-2.5); Eosinophils # (Auto) 0.0 Thou/mm3 (0.0-0.5); Eosinophils % (Auto) 0 % (0-10); Hematocrit 34.2 % (36.0-46.0); Hemoglobin 11.1 g/dL (12.0-16.0); Immature Granulocytes Auto 0.12 Thou/mm3 (0.00-0.00); Lymphocytes # (Auto) 2.5 Thou/mm3 (1.0-4.8); Lymphocytes % (Auto) 11 % (10-50); Mean Corpuscular HGB Conc 32.5 g/dl (31.0-37.0); Mean Corpuscular Hemoglobin 26.9 pg (25.0-35.0); Mean Corpuscular Volume 83 fL (80-100); Monocytes # (Auto) 1.3 Thou/mm3 (0.0-0.8); Monocytes % (Auto) 6 % (0-12); Neutrophils # (Auto) 18.6 Thou/mm3 (1.8-7.7); Neutrophils % (Auto) 83 % (37-80); Nucleated Red Blood Cell # 0.00 Thou/mm3 (0.00-0.00); Nucleated Red Blood Cell % 0 /100 WBC (0); Platelet Count 238 Thou/mm3 (140-440); RDW Standard Deviation 41.8 fL (36.4-46.3); Red Blood Count 4.13 Miln/mm3 (4.00-5.20); White Blood Count 22.6 Thou/mm3 (3.6-11.0)
[2024-10-06 06:41] LABS: Alanine Aminotransferase 9 U/L (10-49); Albumin, Serum 3.9 gm/dL (3.4-4.8); Albumin/Globulin Ratio 1.7 (1.2-2.2); Alkaline Phosphatase 69 U/L (46-116); Anion Gap 9 (7-16); Aspartate Amino Transferase 14 U/L (0-34); BUN/Creatinine Ratio 28 Ratio (12-20); Bilirubin,Total 0.3 mg/dL (0.3-1.2); Blood Urea Nitrogen 33 mg/dL (9-23); Calcium 9.0 mg/dL (8.3-10.6); Calcium (Corrected) 9.1 mg/dL (8.5-10.1); Carbon Dioxide 22.8 mMol/L (20.0-31.0); Chloride 107 mMol/L (98-107); Creatinine (Component) 1.2 mg/dL (0.6-1.3); Estimated Creatinine Clearance 46.8 mL/min (>60); Globulin 2.3 gm/dL (2.3-3.5); Glucose 107 mg/dL (74-106); Magnesium 2.0 mg/dL (1.6-2.6); Osmolality,Calculated 284 (275-295); Phosphorous 3.9 mg/dL (2.4-5.1); Potassium 3.8 mMol/L (3.4-5.1); Sodium 139 mMol/L (136-145); Total Protein 6.2 gm/dL (5.7-8.2); eGFR 48 See Note
--- NOTE | 2024-10-06 07:00 | XR_ITS ---
Examination: Abdomen AP single view Technique: AP portable supine abdomen, single view Exam date and time: October 06, 2024, 0658 hours INDICATION: 18 hour delayed film for small bowel series yesterday FINDINGS: Much of the contrast in the colon IMPRESSION: Negative for complete small bowel obstruction
[2024-10-06] MEDS: cefTRIAXone/D5w 1gm IV premix 1 GM/50 ML BAG IV (08:21)
[2024-10-06] MEDS: HEPARIN SOD INJ 5000 UNIT/ML VIAL SC ×2 (08:21→20:13)
[2024-10-06] MEDS: ALBUTEROL/IPRATROPIUM (Duoneb) RT SOL 3 ML NEBU INH ×3 (08:57→22:25)
--- NOTE | 2024-10-06 10:19 | PC.SS ---
Per rounding meeting, pt is still on IV antibiotics. Dr. Weston on board and possible d/c tomorrow. SS to f/u with team tomorrow on d/c updates.
--- NOTE | 2024-10-06 12:28 | PD.SURPROG ---
Documentation for date of: 10/06/24 Subjective Subjective Narrative: Patient is seen and examined. She is feeling better and her pain is improving. Small bowel series did not show bowel obstruction. NG tube was removed and patient was started on clear liquids Exam Vital Signs Temp Pulse Resp BP Pulse Ox O2 Del Method O2 Flow Rate 97.2 F 92 14 126/70 95 Room Air 2 10/06/24 12:00 10/06/24 12:00 10/06/24 12:10/06/24 12:00 10/06/24 12:10/06/24 12:10/06/24 04:00 Constitutional Constitutional: no acute distress Routine Abdominal Exam Comments: Abdomen is soft and less distended. Bowel sounds are active. Incisions are clean, dry and intact Assessment & Plan Assessment Additional comments: Small bowel obstruction resolving Plan Patient is advised to increase ambulation. Continue liquid diet until further improvement of symptoms.
[2024-10-06] MEDS: METOCLOPRAMIDE INJ 5 MG/ML VIAL 2 ML 10 MG IVP ×2 (12:54→18:26)
--- NOTE | 2024-10-06 15:00 | PD.RESPRO ---
Documentation for date of: 10/06/24 Subjective Subjective Interval history: Patient examined at bedside, no events overnight. Complains of discomfort with the NG tube and adamant about removal. Consulted with surgery. Gastrografin series did show resolution of SBO therefore remove the NG tube. Surgery also on board for decision. De-escalated antibiotics and continuing ceftriaxone in setting of possible UTI. Urine cultures are still pending. Patient denies any flatulence but has small bowel movement. Will start clear liquid diet and advance as tolerated. Transition from IV formulation of pain medications to p.o. [place]. IV morphine for breakthrough pain. MINOR resolved with adequate fluid resuscitation. Anticipate discharge next 24 hours pending diet tolerance. Exam Vital Signs Temp Pulse Resp BP Pulse Ox O2 Del Method O2 Flow Rate 97.2 F 92 14 126/70 95 Room Air 2 10/06/24 12:00 10/06/24 12:00 10/06/24 12:00 10/06/24 12:00 10/06/24 12:00 10/06/24 12:10/06/24 04:00 Narrative Exam General:Elderly female, distress from pain, cooperative but irritable HEENT: NCAT, No JVD noted. Mucosa moist. Pupils are equal and reactive to light bilaterally Cardiovascular: Normal S1 and S2. Regular rate and rhythm. Respiratory: Lungs are clear to auscultation bilaterally. No wheezing or crackles heard. Abdomen: Soft, diffuse tender, not distended, hypoactive bowel sounds. Skin: Warm to touch, dry, no rashes noted Musculoskeletal: No gross injuries. Able to move all 4 extremities. No pitting edema Neuro: Alert and oriented x3. No focal neuro deficits. Psych: normal Objective Labs 10/07/24 05:47 10/07/24 05:47 Labs: Laboratory Results - last 24 hr 10/06/24 05:16 WBC 22.6 H RBC 4.13 Hgb 11.1 L D Hct 34.2 L MCV 83 MCH 26.9 MCHC 32.5 RDW Std Deviation 41.8 Plt Count 238 Neut % (Auto) 83 H Lymph % (Auto) 11 [place] % (Auto) 6 Eos % (Auto) 0 Baso % (Auto) 0 Neut # (Auto) 18.6 H Lymph # (Auto) 2.5 [place] # (Auto) 1.3 H Eos # (Auto) 0.0 Baso # (Auto) 0.1 Immature Gran # (Auto) 0.12 H Absolute Nucleated RBC 0.00 Immature Gran % 1 H Nucleated RBC % 0 Sodium 139 Potassium 3.8 D Chloride 107 Carbon Dioxide 22.8 Anion Gap 9 BUN 33 H Creatinine 1.2 Estim Creat Clear Calc 46.8 L eGFR 48 L BUN/Creatinine Ratio 28 H Glucose 107 H D Calculated Osmolality 284 Calcium 9.0 Corrected Calcium 9.1 Phosphorus 3.9 Magnesium 2.0 Total Bilirubin 0.3 AST 14 ALT 9 L Alkaline Phosphatase 69 Total Protein 6.2 Albumin 3.9 Globulin 2.3 Albumin/Globulin Ratio 1.7 ABG Interpretation ABG results: 10/05/24 01:41 ABG pH 7.40 ABG pCO2 35 ABG pO2 76 L ABG HCO3 22 ABG O2 Saturation 96 ABG Base Excess -2 Quality Measures Quality Measures none Advance care planning discussed with:: patient Assessment & Plan Assessment Current Active Medications: Generic Name Dose Route Start Last Admin Trade Name Freq PRN Reason Stop Dose Admin Hydrocodone Bitart/Acetaminophen 1 tab 10/06/24 13:49 Hydrocodone/Apap 5/325 Tablet PO 10/11/24 13:48 Q4HR PRN Pain 7-10 Albuterol/Ipratropium 3 ml 10/05/24 01:25 10/06/24 08:57 Albuterol/Ipratropium (Duoneb) Rt Jannie 3 Ml Nebu INH 11/04/24 01:24 3 ml Q6HR PRN Administration SHORTNESS OF BREATH OR WHEEZE Dextrose 25 ml 10/05/24 01:15 Dextrose 50%-Water Inj 50 Ml Syringe IV 11/04/24 01:14 Q15MIN PRN BG 50-70 responsive npo pt Dextrose 50 ml 10/05/24 01:15 Dextrose 50%-Water Inj 50 Ml Syringe IV 11/04/24 01:14 Q15MIN PRN BG <50 OR BG <70 & pt unresponsive Glucagon 1 mg 10/05/24 01:15 Glucagon Inj 1 Mg Vial IM Q15MIN PRN BG <70, and no IV access Heparin Sodium (Porcine) 5,000 unit 10/05/24 09:00 10/06/24 08:21 Heparin Sod Inj 5000 Unit/Ml Vial SC 10/19/24 08:59 5,000 unit Q12HR SADE Administration Ceftriaxone Sodium/Dextrose 1 gm in 50 mls @ 100 mls/hr 10/05/24 01:19 10/06/24 08:21 Rocephin/D5w 1gm Iv Premix IV 10/12/24 01:18 100 mls/hr QDAY SADE Administration Insulin Human Lispro 0 unit 10/06/24 17:00 Insulin Lispro (Admelog) 1 Unit/0.01 Ml Unit SC 11/05/24 16:59 ACHS SADE Protocol Labetalol HCl 10 mg 10/05/24 01:26 Labetalol Inj 5 Mg/Ml Vial 20 Ml IVP 11/04/24 01:25 Q4HR PRN Hypertension Metoclopramide HCl 10 mg 10/06/24 12:30 10/06/24 12:54 Metoclopramide Inj 5 Mg/Ml Vial 2 Ml IVP 11/05/24 12:29 10 mg Q6HR SADE Administration Protocol Morphine Sulfate 2 mg 10/06/24 13:50 Morphine Sulf Inj 10 Mg/Ml Vial IVP 10/08/24 10:55 Q4HR PRN BREAKTHROUGH PAIN Ondansetron HCl 4 mg 10/05/24 01:15 Ondansetron Inj 2 Mg/Ml Inj 2 Ml IVP 11/04/24 01:14 Q6H PRN NAUSEA OR VOMITING Protocol Pantoprazole Sodium 40 mg 10/05/24 09:00 10/06/24 08:20 Pantoprazole Inj 40 Mg Vial IV 11/04/24 08:59 40 mg QDAY SADE Administration Plan Patient is 73-year-old female with a PMHx of COPD (2 L home O2), hypertension, hyperlipidemia, type 2 diabetes mellitus, GERD and recent cholecystectomy on 09/26/2024. LBM was on . Surgery Dr. Galvez consulted. Will admit for managment of SBO. #Small bowel obstruction-resolved #High-grade obstruction-resolved Patient presented with a high-grade small bowel obstruction at the ileal level with fluid distended esophagus as noted on abdomen/pelvis CT. Patient was taking opioids and history of abdominal surgery including partial hysterectomy and recent cholecystectomy. Denies previous SBO in the past. Plan - Consult general surgery, Dr Galvez, appreciate recommendations -started clear liquid diet, advance as tolerated - DC NG tube -Acetaminophen -Start p.o. [place] 5 q4hr for pain 7-10 -IV morhpine 2mg q4hr for breakthrough pain - gastrograffin series--showed resolution of bowel obstruction #Sepsis (resolved) 2/2 abdominal infection vs UTI Patient presented with tachycardia, lactic acid 2.7, repeat 1.9, and elevated WBC count of 35.1. Sepsis due to abdominal infection or UTI with acute sepsis-related organ dysfunction as evidence by MINOR. Given recent history of cholecystectomy likely intra-abdominal versus UTI. She is denying urinary symptoms, low suspicion of UTI. Imaging also not indicating any sort of abdominal abscess. UA positive for WBCs but no esterase, positive epithelial cells likely contaminated. Ceftriaxone started as patient has a penicillin allergies Plan -Ceftriaxone (10/05/2024) -DC Flagyl (-10/06) - Preliminary blood cultures negative - Urine cultures pending #MINOR-improving Cr on admission 1.2 (baseline near 0.9). Likely pre-renal given emesis and poor oral intake vs intrinisc. Renal injury given BUN/Cr 12. Plan - Encourage oral intake -avoid nephrotoxic agents -daily CMP #Hypertension Holding home medication of Lisinopril due to controlled BP. Plan -Labetolol PRN for systolic bP >180 #Non insulin dependent diabetes Mellitus type 2, well controlled Patient's home medication Ozempic. A1c 5.2 on this admission. Plan -ACHS glucose checks -Sliding Scale insulin -Fasting glucose levels - Educated patient on Ozempic and encouraged to discontinue after discharge. Patient seems hesitant to stop taking due to adverse effects of other antidiabetic therapies that she has used in the past. - Follow-up with PCP for alternative management #Hyperlipidemia Home medication simvastatin 20mg daily. Lipid panel: Tags 176, cholesterol 146, HDL 35 Plan -resume pending med rec -Follow up on lipid panel #COPD She uses 2L oxygen at home and duonebs. -duoneb q4hr PRN -goal O2 88-92% #Metabolic acidosis, anion gap-resolved #Lactic acidosis-resolved #Hypercalcemia-resolved Health Maintenance: Disp: advancing diet s/p SBO FEN:clear liquid DVT: on subQ heparin Q12 Code: Full Code The patient's management plan was discussed with my attending physician Dr. Lopez. Anay Anna, PGY-1 Attending Provider Attestation/Addendum I have examined the patient, reviewed labs and imaging findings, discussed the case with the resident(s), and reviewed entered orders. I agree with the plan of care as outlined in this note, with these additional summaries/recommendations: Patient seen at bedside. No acute overnight events. Patient completed small bowel series which was negative for complete bowel obstruction. Patient had 2 bowel movements this morning. NG tube removed. She is not able to fully tolerate clear liquid diet yet and we will continue to advance as tolerated. Severe leukocytosis persists although improving. Patient was also diagnosed with sepsis on admission with evidence of endorgan damage with MINOR. Most likely secondary to urinary tract infection. Blood cultures preliminarily show no growth at 24 hours and urine culture pending. Continue IV antibiotics. Acute kidney injury secondary to prerenal azotemia now resolved. Continue to hold home antihypertensives as patient is normotensive and reinstitute as tolerated. Continue insulin sliding scale with Accu-Cheks for history of diabetes mellitus type 2. Continue breathing treatments as needed for history of history of COPD and uses DuoNebs at home. Lactic acidosis has resolved. Patient updated on the plan and in agreement. All questions answered to satisfaction. Please see residents note for additional details and management. Dr. John MD
--- NOTE | 2024-10-06 15:15 | PC.NURSE ---
patient shows sinus rhythm with frequent pvc's, called and made aware, no new order received at this time.
--- NOTE | 2024-10-06 15:21 | PC.SS ---
ASW attempted to contact pts sister to complete the initial and the phone number was disconnected.
[2024-10-06] MEDS: ONDANSETRON INJ 2 MG/ML INJ 2 ML 4 MG IVP ×2 (16:27→22:22)
[2024-10-06] MEDS: HYDROcodone/APAP 5/325 TABLET 1 TAB PO ×2 (16:28→20:13)
--- NOTE | 2024-10-06 19:58 | PC.NURSE ---
called for PRN breathing treatment per pt. request.
--- NOTE | 2024-10-06 20:25 | PC.NURSE ---
Pt. threw up [place] tablet found in emesis, Dr. Newman aware and orders to give pt. PRN morphine and scolopolamine patch.
[2024-10-06] MEDS: SCOPOLAMINE 1 MG TDSY TOP (20:34)
--- NOTE | 2024-10-06 23:42 | EKG_ITS ---
[facility] Test Date: 2024-10-06 Pat Name: KETAN WILDER Department: Room: S264A Gender: Female Transition Nurse: ITA : 1950 Requested By: Derik Olguin Order Number: [id number] Reading MD: Derik Olguin Measurements Intervals [place] Rate: 98 P: 65 HI: 162 QRS: -28 QRSD: 89 T: 35 QT: 316 QTc: 403 Interpretive Statements SINUS RHYTHM WITH FREQUENT VENTRICULAR PREMATURE COMPLEXES BORDERLINE LEFT AXIS DEVIATION POSSIBLE RIGHT VENTRICULAR CONDUCTION DELAY ABNORMAL RHYTHM ECG Compared to ECG 10/04/2024 21:59:50 Ventricular premature complex(es) now present Sinus tachycardia no longer present /store/S0/[id number].pdf
--- NOTE | 2024-10-06 23:48 | PC.NURSE ---
Addendum entered by Maria Teresa Weber RN 10/07/24 00:50: at the time of this documented call Dr. Taylor made aware that pt. BP 174/81, no new orders. aware PRN labetolol is ordered with no parameters. No changes made at this time. No orders to give labetolol Original Note: Called to Dr. Taylor about this pt., pt. has had about 5 bowel movements this shift, loose and painful. Pt. reports pain to lower abdomen. Painful on palpation. orders EKG and magnesium 2g IV. orders to call back once EKG results for further orders.
[2024-10-06] MEDS: Magnesium Sulfate 2 GM Ivpb 2 GM/50 ML BAG IV (23:56)
[2024-10-07] VITALS (10 sets, daily range): BP systolic 114–174; BP diastolic 51–81; PULSE 84–106; RESP 12–100; TEMP 35.8–36.5; O2SAT 96–100; BMI 28.8
--- NOTE | 2024-10-07 00:03 | XR_ITS ---
Examination: Abdomen AP single view Technique: AP portable supine abdomen, single view Exam date and time: October 07, 2024, 0046 hours INDICATIONS: Abdomen film post small bowel series yesterday, abdominal pain and distention this week FINDINGS: Contrast primarily in the colon Air distended small bowel loops IMPRESSION: Negative for complete small bowel obstruction
[2024-10-07] MEDS: METOCLOPRAMIDE INJ 5 MG/ML VIAL 2 ML 10 MG IVP ×4 (00:26→23:29)
[2024-10-07] MEDS: MORPHINE SULF INJ 10 MG/ML VIAL 2 MG IVP ×5 (00:26→19:22)
[2024-10-07] MEDS: POTASSIUM CHL 10 mEq IVPB 10 MEQ/100 ML BAG 85 MEQ IV ×2 (00:27→01:31)
--- NOTE | 2024-10-07 03:34 | PC.NURSE ---
Pt. refuses bed alarm at this time. Pt. educated on fall precautions and fall risks and agrees to call for help if needed. Call light and beloningings within reach.
--- NOTE | 2024-10-07 04:51 | PC.NURSE ---
Pt. refuses to take Central due to vomitting episode after norco earlier in the shift. Dr. Newman aware of this episode.
[2024-10-07] MEDS: ALBUTEROL/IPRATROPIUM (Duoneb) RT SOL 3 ML NEBU INH ×2 (06:46→14:07)
[2024-10-07 06:56] LABS: Basophils # (Auto) 0.0 Thou/mm3 (0.0-0.2); Basophils % (Auto) 0 % (0-2.5); Eosinophils # (Auto) 0.0 Thou/mm3 (0.0-0.5); Eosinophils % (Auto) 0 % (0-10); Hematocrit 34.6 % (36.0-46.0); Hemoglobin 11.7 g/dL (12.0-16.0); Immature Granulocytes Auto 0.15 Thou/mm3 (0.00-0.00); Lymphocytes # (Auto) 1.8 Thou/mm3 (1.0-4.8); Lymphocytes % (Auto) 12 % (10-50); Mean Corpuscular HGB Conc 33.8 g/dl (31.0-37.0); Mean Corpuscular Hemoglobin 27.5 pg (25.0-35.0); Mean Corpuscular Volume 81 fL (80-100); Monocytes # (Auto) 0.9 Thou/mm3 (0.0-0.8); Monocytes % (Auto) 6 % (0-12); Neutrophils # (Auto) 11.4 Thou/mm3 (1.8-7.7); Neutrophils % (Auto) 80 % (37-80); Nucleated Red Blood Cell # 0.00 Thou/mm3 (0.00-0.00); Nucleated Red Blood Cell % 0 /100 WBC (0); Platelet Count 163 Thou/mm3 (140-440); RDW Standard Deviation 40.2 fL (36.4-46.3); Red Blood Count 4.26 Miln/mm3 (4.00-5.20); White Blood Count 14.2 Thou/mm3 (3.6-11.0)
--- NOTE | 2024-10-07 06:58 | PD.SURPROG ---
Documentation for date of: 10/07/24 Subjective Subjective Narrative: Patient is seen and examined. She still has some lower abdominal pain, however significantly improved. She is tolerating liquid diet without nausea or vomiting and having multiple bowel movements Exam Vital Signs Temp Pulse Resp BP Pulse Ox O2 Del Method O2 Flow Rate 97.0 F 92 12 149/72 H 100 Nasal Cannula 2 10/07/24 04:00 10/07/24 06:47 10/07/24 06:47 10/07/24 04:00 10/07/24 06:47 10/07/24 04:00 10/07/24 06:47 Constitutional Constitutional: no acute distress Routine Abdominal Exam Comments: Abdomen is soft and minimally distended. Bowel sounds are active. She has lower abdominal tenderness to deep palpation, no rebound tenderness or peritonitis at this time Assessment & Plan Assessment Additional comments: Small bowel obstruction improving Plan Advance to soft diet
[2024-10-07 07:02] LABS: Alanine Aminotransferase 7 U/L (10-49); Albumin, Serum 4.1 gm/dL (3.4-4.8); Albumin/Globulin Ratio 1.8 (1.2-2.2); Alkaline Phosphatase 77 U/L (46-116); Anion Gap 10 (7-16); Aspartate Amino Transferase 19 U/L (0-34); BUN/Creatinine Ratio 28 Ratio (12-20); Bilirubin,Total 0.3 mg/dL (0.3-1.2); Blood Urea Nitrogen 28 mg/dL (9-23); Calcium 9.1 mg/dL (8.3-10.6); Calcium (Corrected) 9.1 mg/dL (8.5-10.1); Carbon Dioxide 20.8 mMol/L (20.0-31.0); Chloride 104 mMol/L (98-107); Creatinine (Component) 1.0 mg/dL (0.6-1.3); Estimated Creatinine Clearance 56.7 mL/min (>60); Globulin 2.3 gm/dL (2.3-3.5); Glucose 115 mg/dL (74-106); Magnesium 2.5 mg/dL (1.6-2.6); Osmolality,Calculated 276 (275-295); Phosphorous 2.2 mg/dL (2.4-5.1); Potassium 4.4 mMol/L (3.4-5.1); Sodium 135 mMol/L (136-145); Total Protein 6.4 gm/dL (5.7-8.2); eGFR 59 See Note
[2024-10-07] MEDS: ONDANSETRON INJ 2 MG/ML INJ 2 ML 4 MG IVP (07:26)
[2024-10-07] MEDS: cefTRIAXone/D5w 1gm IV premix 1 GM/50 ML BAG IV (08:30)
[2024-10-07] MEDS: DOCUSATE SOD 100 MG CAPSULE PO ×2 (08:38→20:58)
[2024-10-07] MEDS: HEPARIN SOD INJ 5000 UNIT/ML VIAL SC ×2 (08:40→20:58)
[2024-10-07] MEDS: NAPH,KPH MBDB 1 PACKET (1.5 GM) PO (08:46)
--- NOTE | 2024-10-07 10:02 | PC.SS ---
SHIPPING PACKER conducted bedside contact with the patient conduct initial assessment and to discuss discharge planning.? Patient confirmed demographic information.? Patient resides at home with sister, Sarahi Lomeli .? Patient utilizes a walker to assist with ambulation.? Patient possesses home oxygen.? Patient describes ability to complete ADL?s independently.? Patient identified sister, Sarahi Lomeli; as medical surrogate decision maker.? Patient?s PCP is KINGSLEY Chavez.? Patient does not participate with dialysis.? Patient utilizes [facility] for medication services.? Plan is for the patient to return home at the time of discharge.? Patient confirmed access to basic utilities and provisions.? If home health recommended no preferred agency identified.? Friend, Nicole to be contacted to provide transportation on behalf of the patient. ?No further discharge needs identified by the patient.? No further intervention required at this time, socially responsible investment adviser will be available to address any further concerns.? Next of Kin: Sarahi Lomeli D/C Plan: Home
--- NOTE | 2024-10-07 10:51 | PD.RESPRO ---
Documentation for date of: 10/07/24 Subjective Subjective Interval history: Patient examined at bedside, no overnight events. Denies having any more bowel movements and not passing gassing. Endorses two episodes of emesis. Continues to have abdominal pain. WBC downtrended to 14 today, MINOR resolved with adequate fluids. Resumed home lisinopril dose today. She is only tolerating liquid diet. Has been unable to advance at all. Continue to slowly advance diet and monitor symptoms. Urine cultures are negative. Discontinue antibiotics. Exam Vital Signs Temp Pulse Resp BP Pulse Ox O2 Del Method O2 Flow Rate 97.2 F 98 25 H 145/67 H 98 Nasal Cannula 2 10/07/24 08:00 10/07/24 08:38 10/07/24 08:00 10/07/24 08:38 10/07/24 08:00 10/07/24 08:00 10/07/24 08:00 Narrative Exam General:Elderly female, distress from pain, cooperative but irritable HEENT: NCAT, No JVD noted. Mucosa moist. Pupils are equal and reactive to light bilaterally Cardiovascular: Normal S1 and S2. Regular rate and rhythm. Respiratory: Lungs are clear to auscultation bilaterally. No wheezing or crackles heard. Abdomen: Soft, diffuse tender, not distended, hypoactive bowel sounds. Skin: Warm to touch, dry, no rashes noted Musculoskeletal: No gross injuries. Able to move all 4 extremities. No pitting edema Neuro: Alert and oriented x3. No focal neuro deficits. Psych: normal Objective Labs 10/07/24 05:47 10/07/24 05:47 Labs: Laboratory Results - last 24 hr 10/07/24 05:47 WBC 14.2 H D RBC 4.26 Hgb 11.7 L Hct 34.6 L MCV 81 MCH 27.5 MCHC 33.8 RDW Std Deviation 40.2 Plt Count 163 D Neut % (Auto) 80 Lymph % (Auto) 12 [place] % (Auto) 6 Eos % (Auto) 0 Baso % (Auto) 0 Neut # (Auto) 11.4 H Lymph # (Auto) 1.8 [place] # (Auto) 0.9 H Eos # (Auto) 0.0 Baso # (Auto) 0.0 Immature Gran # (Auto) 0.15 H Absolute Nucleated RBC 0.00 Immature Gran % 1 H Nucleated RBC % 0 Sodium 135 L Potassium 4.4 D Chloride 104 Carbon Dioxide 20.8 Anion Gap 10 BUN 28 H Creatinine 1.0 Estim Creat Clear Calc 56.7 L eGFR 59 L BUN/Creatinine Ratio 28 H Glucose 115 H Calculated Osmolality 276 Calcium 9.1 Corrected Calcium 9.1 Phosphorus 2.2 L Magnesium 2.5 Total Bilirubin 0.3 AST 19 ALT 7 L Alkaline Phosphatase 77 Total Protein 6.4 Albumin 4.1 Globulin 2.3 Albumin/Globulin Ratio 1.8 ABG Interpretation ABG results: 10/05/24 01:41 ABG pH 7.40 ABG pCO2 35 ABG pO2 76 L ABG HCO3 22 ABG O2 Saturation 96 ABG Base Excess -2 Quality Measures Quality Measures none Advance care planning discussed with:: patient Assessment & Plan Assessment Current Active Medications: Generic Name Dose Route Start Last Admin Trade Name Freq PRN Reason Stop Dose Admin Hydrocodone Bitart/Acetaminophen 1 tab 10/06/24 13:49 10/06/24 20:13 Hydrocodone/Apap 5/325 Tablet PO 10/11/24 13:48 1 tab Q4HR PRN Administration Pain 7-10 Albuterol/Ipratropium 3 ml 10/05/24 01:25 10/07/24 06:46 Albuterol/Ipratropium (Duoneb) Rt Jannie 3 Ml Nebu INH 11/04/24 01:24 3 ml Q6HR PRN Administration SHORTNESS OF BREATH OR WHEEZE Dextrose 25 ml 10/05/24 01:15 Dextrose 50%-Water Inj 50 Ml Syringe IV 11/04/24 01:14 Q15MIN PRN BG 50-70 responsive npo pt Dextrose 50 ml 10/05/24 01:15 Dextrose 50%-Water Inj 50 Ml Syringe IV 11/04/24 01:14 Q15MIN PRN BG <50 OR BG <70 & pt unresponsive Docusate Sodium 100 mg 10/07/24 09:00 10/07/24 08:38 Docusate Sod 100 Mg Capsule PO 11/06/24 08:59 100 mg BID SADE Administration Protocol Glucagon 1 mg 10/05/24 01:15 Glucagon Inj 1 Mg Vial IM Q15MIN PRN BG <70, and no IV access Heparin Sodium (Porcine) 5,000 unit 10/05/24 09:00 10/07/24 08:40 Heparin Sod Inj 5000 Unit/Ml Vial SC 10/19/24 08:59 5,000 unit Q12HR SADE Administration Ceftriaxone Sodium/Dextrose 1 gm in 50 mls @ 100 mls/hr 10/05/24 01:19 10/07/24 08:30 Rocephin/D5w 1gm Iv Premix IV 10/12/24 01:18 100 mls/hr QDAY SADE Administration Insulin Human Lispro 0 unit 10/06/24 17:00 10/07/24 10:25 Insulin Lispro (Admelog) 1 Unit/0.01 Ml Unit SC 11/05/24 16:59 Not Given ACHS SADE Protocol Labetalol HCl 10 mg 10/05/24 01:26 Labetalol Inj 5 Mg/Ml Vial 20 Ml IVP 11/04/24 01:25 Q4HR PRN Hypertension Lisinopril 40 mg 10/07/24 09:00 10/07/24 08:38 Lisinopril 20 Mg Tablet PO 11/06/24 08:59 40 mg QDAY SADE Administration Metoclopramide HCl 10 mg 10/06/24 12:30 10/07/24 05:17 Metoclopramide Inj 5 Mg/Ml Vial 2 Ml IVP 11/05/24 12:29 Not Given Q6HR SADE Protocol Morphine Sulfate 2 mg 10/06/24 13:50 10/07/24 09:04 Morphine Sulf Inj 10 Mg/Ml Vial IVP 10/08/24 10:55 2 mg Q4HR PRN Administration BREAKTHROUGH PAIN Ondansetron HCl 4 mg 10/05/24 01:15 10/07/24 07:26 Ondansetron Inj 2 Mg/Ml Inj 2 Ml IVP 11/04/24 01:14 4 mg Q6H PRN Administration NAUSEA OR VOMITING Protocol Pantoprazole Sodium 40 mg 10/05/24 09:00 10/07/24 08:39 Pantoprazole Inj 40 Mg Vial IV 11/04/24 08:59 40 mg QDAY SADE Administration Plan Patient is 73-year-old female with a PMHx of COPD (2 L home O2), hypertension, hyperlipidemia, type 2 diabetes mellitus, GERD and recent cholecystectomy on 09/26/2024. LBM was on . Surgery Dr. Galvez consulted. Will admit for managment of SBO. #Small bowel obstruction-resolved #High-grade obstruction-resolved Patient presented with a high-grade small bowel obstruction at the ileal level with fluid distended esophagus as noted on abdomen/pelvis CT. Patient was taking opioids and history of abdominal surgery including partial hysterectomy and recent cholecystectomy. Denies previous SBO in the past. Plan - Consult general surgery, Dr Galvez, appreciate recommendations -started clear liquid diet, advance as tolerated -Acetaminophen -p.o. [place] 5 q4hr for pain 7-10 -IV morhpine 2mg q4hr for breakthrough pain - gastrograffin series--showed resolution of bowel obstruction #Hypertension Holding home medication of Lisinopril due to controlled BP. Plan -Labetolol PRN for systolic bP >180 -resume lul med lisinopril 20mg daily #Non insulin dependent diabetes Mellitus type 2, well controlled Patient's home medication Ozempic. A1c 5.2 on this admission. Plan -ACHS glucose checks -Sliding Scale insulin -Fasting glucose levels - Educated patient on Ozempic and encouraged to discontinue after discharge. Patient seems hesitant to stop taking due to adverse effects of other antidiabetic therapies that she has used in the past. - Follow-up with PCP for alternative management #Hyperlipidemia Home medication simvastatin 20mg daily. Lipid panel: Tags 176, cholesterol 146, HDL 35 Plan -resume pending med rec -Follow up on lipid panel #COPD She uses 2L oxygen at home and duonebs. -duoneb q4hr PRN -goal O2 88-92% #Metabolic acidosis, anion gap-resolved #Lactic acidosis-resolved #Hypercalcemia-resolved #MINOR-resolved #Sepsis (resolved) 2/2 abdominal infection vs UTI Health Maintenance: Disp: advancing diet s/p SBO FEN: regualr, advance as tolerated DVT: on subQ heparin Q12 Code: Full Code The patient's management plan was discussed with my attending physician Dr. Lopez. Anay Anna, PGY-1 Attending Provider Attestation/Addendum I have examined the patient, reviewed labs and imaging findings, discussed the case with the resident(s), and reviewed entered orders. I agree with the plan of care as outlined in this note, with these additional summaries/recommendations: Patient seen at bedside. No acute overnight events. She endorses abdominal discomfort but overall improved. She thinks she tolerated clear liquid diet and discussed that we will advance the dysphagia 2 diet and monitor how she responds. Patient completed small bowel series which was negative for complete bowel obstruction. Patient had 4 bowel movements in last 24 hours although still having abdominal discomfort. NG tube removed. Severe leukocytosis persists although improving. Patient was also diagnosed with sepsis on admission with evidence of endorgan damage with MINOR. Most likely secondary to urinary tract infection. Blood cultures preliminarily show no growth at 48 hours and urine culture pending. Continue IV antibiotics. Acute kidney injury secondary to prerenal azotemia now resolved. Continue to reinstitute antihypertensives as needed. Continue insulin sliding scale with Accu-Cheks for history of diabetes mellitus type 2. Continue breathing treatments as needed for history of history of COPD and uses DuoNebs at home. Lactic acidosis has resolved. Patient updated on the plan and in agreement. All questions answered to satisfaction. Please see residents note for additional details and management. Dr. John MD
--- NOTE | 2024-10-07 14:30 | PC.SS ---
Rounding Note: Plan is to advance diet possible d/c tomorrow.
[2024-10-08] VITALS (10 sets, daily range): BP systolic 121–177; BP diastolic 55–86; PULSE 73–97; RESP 15–99; TEMP 36.1–36.7; O2SAT 98–100; BMI 28.8
[2024-10-08] MEDS: MORPHINE SULF INJ 10 MG/ML VIAL 2 MG IVP ×3 (00:33→10:38)
[2024-10-08] MEDS: ALBUTEROL/IPRATROPIUM (Duoneb) RT SOL 3 ML NEBU INH ×2 (02:27→22:24)
[2024-10-08] MEDS: METOCLOPRAMIDE INJ 5 MG/ML VIAL 2 ML 10 MG IVP ×3 (05:54→23:14)
[2024-10-08 06:24] LABS: Basophils # (Auto) 0.0 Thou/mm3 (0.0-0.2); Basophils % (Auto) 0 % (0-2.5); Eosinophils # (Auto) 0.1 Thou/mm3 (0.0-0.5); Eosinophils % (Auto) 1 % (0-10); Hematocrit 36.1 % (36.0-46.0); Hemoglobin 11.9 g/dL (12.0-16.0); Immature Granulocytes Auto 0.04 Thou/mm3 (0.00-0.00); Lymphocytes # (Auto) 2.4 Thou/mm3 (1.0-4.8); Lymphocytes % (Auto) 19 % (10-50); Mean Corpuscular HGB Conc 33.0 g/dl (31.0-37.0); Mean Corpuscular Hemoglobin 27.1 pg (25.0-35.0); Mean Corpuscular Volume 82 fL (80-100); Monocytes # (Auto) 0.9 Thou/mm3 (0.0-0.8); Monocytes % (Auto) 8 % (0-12); Neutrophils # (Auto) 9.1 Thou/mm3 (1.8-7.7); Neutrophils % (Auto) 72 % (37-80); Nucleated Red Blood Cell # 0.00 Thou/mm3 (0.00-0.00); Nucleated Red Blood Cell % 0 /100 WBC (0); Platelet Count 274 Thou/mm3 (140-440); RDW Standard Deviation 41.1 fL (36.4-46.3); Red Blood Count 4.39 Miln/mm3 (4.00-5.20); White Blood Count 12.6 Thou/mm3 (3.6-11.0)
[2024-10-08 06:47] LABS: Alanine Aminotransferase 11 U/L (10-49); Albumin, Serum 4.2 gm/dL (3.4-4.8); Albumin/Globulin Ratio 1.7 (1.2-2.2); Alkaline Phosphatase 75 U/L (46-116); Anion Gap 11 (7-16); Aspartate Amino Transferase 26 U/L (0-34); BUN/Creatinine Ratio 19 Ratio (12-20); Bilirubin,Total 0.5 mg/dL (0.3-1.2); Blood Urea Nitrogen 19 mg/dL (9-23); Calcium 9.3 mg/dL (8.3-10.6); Calcium (Corrected) 9.3 mg/dL (8.5-10.1); Carbon Dioxide 20.8 mMol/L (20.0-31.0); Chloride 102 mMol/L (98-107); Creatinine (Component) 1.0 mg/dL (0.6-1.3); Estimated Creatinine Clearance 56.7 mL/min (>60); Globulin 2.5 gm/dL (2.3-3.5); Glucose 177 mg/dL (74-106); Magnesium 2.4 mg/dL (1.6-2.6); Osmolality,Calculated 274 (275-295); Phosphorous 2.6 mg/dL (2.4-5.1); Potassium 5.0 mMol/L (3.4-5.1); Sodium 134 mMol/L (136-145); Total Protein 6.7 gm/dL (5.7-8.2); eGFR 59 See Note
[2024-10-08] MEDS: DOCUSATE SOD 100 MG CAPSULE PO ×2 (08:02→20:06)
[2024-10-08] MEDS: cefTRIAXone/D5w 1gm IV premix 1 GM/50 ML BAG IV (08:02)
[2024-10-08] MEDS: HEPARIN SOD INJ 5000 UNIT/ML VIAL SC ×2 (08:03→20:06)
--- NOTE | 2024-10-08 10:36 | CHAP ---
Patient was visited by a Spiritual Care Volunteer on 10/08/2024 between 0900 and 0930 and received comfort, encouragement and/or prayer.
--- NOTE | 2024-10-08 11:14 | PC.SS ---
Update: Plan is to advance patient's diet. If patient tolerates advancement plan is to d/c patient home.
--- NOTE | 2024-10-08 12:03 | PD.SURPROG ---
Documentation for date of: 10/08/24 Subjective Subjective Narrative: Patient is seen and examined. Her pain is improving. She is tolerating diet without nausea or vomiting and having bowel movements Exam Vital Signs Temp Pulse Resp BP Pulse Ox O2 Del Method O2 Flow Rate 98.0 F 96 22 H 151/67 H 100 Nasal Cannula 3 10/08/24 08:00 10/08/24 08:03 10/08/24 08:00 10/08/24 08:03 10/08/24 08:00 10/08/24 08:00 10/08/24 08:00 Constitutional Constitutional: no acute distress Routine Abdominal Exam Comments: Abdomen is soft and less distended. Incisions are clean, dry and intact Assessment & Plan Assessment Additional comments: Small bowel obstruction resolving Plan May discharge home from surgical standpoint. Follow-up with Dr Galvez in 1 week
--- NOTE | 2024-10-08 13:35 | ESPR_ITS ---
<Statement entered by Pako Jones MD - 10/10/24 09:29> I have discussed and was present for the essential components of the history, physical examination, diagnosis, and treatment plan with the resident. I agree with the patient's care as documented by the resident and amended herein by me. Pako Jones MD FACP. Documentation for date of: 10/08/24 Subjective Subjective Interval history: No acute events overnight. Patient stated she was not able to tolerate oatmeal or any soft foods very well. States she vomited her food up and is only able to tolerate liquids for now. She states she continues to have diffuse abdominal pain, tender to touch. Endorses multiple bowel movements that are loose in consistency. Patient denies fever, chest pain shortness of breath. Exam Vital Signs Temp Pulse Resp BP Pulse Ox O2 Del Method O2 Flow Rate 97.8 F 78 16 121/55 L 98 Nasal Cannula 3 10/08/24 12:00 10/08/24 12:00 10/08/24 12:10/08/24 12:10/08/24 12:10/08/24 12:10/08/24 12:00 Narrative Exam General:Elderly female, distress from pain, cooperative Cardiovascular: Normal S1 and S2. Regular rate and rhythm. Respiratory: Lungs are clear to auscultation bilaterally. No wheezing or crackles heard. Abdomen: Soft, diffuse tenderness, mild distension. Skin: Warm to touch, dry, no rashes noted Musculoskeletal: No gross injuries. Able to move all 4 extremities. No pitting edema Neuro: Alert and oriented x3. No focal neuro deficits. Psych: normal Objective Labs 10/08/24 05:43 10/08/24 05:43 Labs: Laboratory Results - last 24 hr 10/08/24 05:43 WBC 12.6 H RBC 4.39 Hgb 11.9 L Hct 36.1 MCV 82 MCH 27.1 MCHC 33.0 RDW Std Deviation 41.1 Plt Count 274 D Neut % (Auto) 72 Lymph % (Auto) 19 [place] % (Auto) 8 Eos % (Auto) 1 Baso % (Auto) 0 Neut # (Auto) 9.1 H Lymph # (Auto) 2.4 [place] # (Auto) 0.9 H Eos # (Auto) 0.1 Baso # (Auto) 0.0 Immature Gran # (Auto) 0.04 H Absolute Nucleated RBC 0.00 Immature Gran % 0 Nucleated RBC % 0 Sodium 134 L Potassium 5.0 D Chloride 102 Carbon Dioxide 20.8 Anion Gap 11 BUN 19 Creatinine 1.0 Estim Creat Clear Calc 56.7 L eGFR 59 L BUN/Creatinine Ratio 19 Glucose 177 H D Calculated Osmolality 274 L Calcium 9.3 Corrected Calcium 9.3 Phosphorus 2.6 Magnesium 2.4 Total Bilirubin 0.5 AST 26 ALT 11 Alkaline Phosphatase 75 Total Protein 6.7 Albumin 4.2 Globulin 2.5 Albumin/Globulin Ratio 1.7 ABG Interpretation ABG results: 10/05/24 01:41 ABG pH 7.40 ABG pCO2 35 ABG pO2 76 L ABG HCO3 22 ABG O2 Saturation 96 ABG Base Excess -2 Quality Measures Quality Measures none Advance care planning discussed with:: patient Assessment & Plan Assessment Current Active Medications: Generic Name Dose Route Start Last Admin Trade Name Freq PRN Reason Stop Dose Admin Hydrocodone Bitart/Acetaminophen 1 tab 10/06/24 13:49 10/06/24 20:13 Hydrocodone/Apap 5/325 Tablet PO 10/11/24 13:48 1 tab Q4HR PRN Administration Pain 7-10 Albuterol/Ipratropium 3 ml 10/05/24 01:25 10/08/24 02:27 Albuterol/Ipratropium (Duoneb) Rt Jannie 3 Ml Nebu INH 11/04/24 01:24 3 ml Q6HR PRN Administration SHORTNESS OF BREATH OR WHEEZE Dextrose 25 ml 10/05/24 01:15 Dextrose 50%-Water Inj 50 Ml Syringe IV 11/04/24 01:14 Q15MIN PRN BG 50-70 responsive npo pt Dextrose 50 ml 10/05/24 01:15 Dextrose 50%-Water Inj 50 Ml Syringe IV 11/04/24 01:14 Q15MIN PRN BG <50 OR BG <70 & pt unresponsive Docusate Sodium 100 mg 10/07/24 09:00 10/08/24 08:02 Docusate Sod 100 Mg Capsule PO 11/06/24 08:59 100 mg BID SADE Administration Protocol Glucagon 1 mg 10/05/24 01:15 Glucagon Inj 1 Mg Vial IM Q15MIN PRN BG <70, and no IV access Heparin Sodium (Porcine) 5,000 unit 10/05/24 09:00 10/08/24 08:03 Heparin Sod Inj 5000 Unit/Ml Vial SC 10/19/24 08:59 5,000 unit Q12HR SADE Administration Ceftriaxone Sodium/Dextrose 1 gm in 50 mls @ 100 mls/hr 10/05/24 01:19 10/08/24 08:32 Rocephin/D5w 1gm Iv Premix IV 10/12/24 01:18 Infused QDAY SADE Infusion Insulin Human Lispro 0 unit 10/06/24 17:00 10/08/24 11:27 Insulin Lispro (Admelog) 1 Unit/0.01 Ml Unit SC 11/05/24 16:59 Not Given ACHS SADE Protocol Labetalol HCl 10 mg 10/05/24 01:26 Labetalol Inj 5 Mg/Ml Vial 20 Ml IVP 11/04/24 01:25 Q4HR PRN Hypertension Lisinopril 40 mg 10/07/24 09:00 10/08/24 08:03 Lisinopril 20 Mg Tablet PO 11/06/24 08:59 40 mg QDAY SADE Administration Metoclopramide HCl 10 mg 10/06/24 12:30 10/08/24 12:02 Metoclopramide Inj 5 Mg/Ml Vial 2 Ml IVP 11/05/24 12:29 10 mg Q6HR SDAE Administration Protocol Ondansetron HCl 4 mg 10/05/24 01:15 10/07/24 07:26 Ondansetron Inj 2 Mg/Ml Inj 2 Ml IVP 11/04/24 01:14 4 mg Q6H PRN Administration NAUSEA OR VOMITING Protocol Pantoprazole Sodium 40 mg 10/05/24 09:00 10/08/24 08:03 Pantoprazole Inj 40 Mg Vial IV 11/04/24 08:59 40 mg QDAY SADE Administration Plan Patient is 73-year-old female with a PMHx of COPD (2 L home O2), hypertension, hyperlipidemia, type 2 diabetes mellitus, GERD and recent cholecystectomy on 09/26/2024. Has had multiple bowel movements over the last [address] Galvez consulted. Was admitted for management of SBO, currently being hospitalized for pain management and diet advancement s/p SBO #Small bowel obstruction-resolved #High-grade obstruction-resolved Patient presented with a high-grade small bowel obstruction at the ileal level with fluid distended esophagus as noted on abdomen/pelvis CT. Patient was taking opioids and history of abdominal surgery including partial hysterectomy and recent cholecystectomy. Denies previous SBO in the past. Plan - Gere[facility] surgery was consulted, Dr Galvez, appreciate recommendations - continuing clear liquid diet, unable to tolerate solids -Acetaminophen -p.o. [place] 5 q4hr for pain 7-10 -IV morhpine 2mg q4hr for breakthrough pain - gastrograffin series--showed resolution of bowel obstruction #Hypertension Home medication of Lisinopril 40mg Plan - Labetolol PRN for systolic bP >180 - continue home med lisinopril 40mg daily #Non insulin dependent diabetes Mellitus type 2, well controlled Patient's home medication Ozempic. A1c 5.2 on this admission. Plan -ACHS glucose checks -Sliding Scale insulin -Fasting glucose levels - Educated patient on Ozempic and encouraged to discontinue after discharge. Patient seems hesitant to stop taking due to adverse effects of other antidiabetic therapies that she has used in the past. - Follow-up with PCP for alternative management #Hyperlipidemia Home medication simvastatin 20mg daily. Lipid panel: Tags 176, cholesterol 146, HDL 35 Plan -resume pending med rec -Follow up on lipid panel #COPD She uses 2L oxygen at home and duonebs. -duoneb q4hr PRN -goal O2 88-92% #Metabolic acidosis, anion gap-resolved #Lactic acidosis-resolved #Hypercalcemia-resolved #MINOR-resolved #Sepsis (resolved) 2/2 abdominal infection vs UTI Health Maintenance: Disp: advancing diet s/p SBO FEN: regualr, advance as tolerated DVT: on subQ heparin Q12 Code: Full Code The patient's management plan was discussed with my attending physician Dr. Jones. Aristeo Mclean PGY-1 Patient seen and examined at bedside, no acute overnight events. I discussed and supervised with the information technology internship physician who took care of this patient. I personally saw and examined the patient. I agree with most of the assessment and plan. Patient continues to endorse abdominal tenderness. Attempted to advance diet, patient did not tolerate, nausea and vomiting. Continues to receive scheduled Reglan. Plan of care discussed with attending Dr. Jones. Woodrow Marie MD PGY-2
--- NOTE | 2024-10-08 15:41 | PC.SS ---
Rounding Note: Patient is not tolerating diet advancement. D/C on hold.
[2024-10-08] MEDS: HYDROcodone/APAP 5/325 TABLET 1 TAB PO (20:07)
[2024-10-09] VITALS (9 sets, daily range): BP systolic 122–147; BP diastolic 47–63; PULSE 69–95; RESP 16–100; TEMP 36–36.7; O2SAT 95–100; BMI 28.8
[2024-10-09] MEDS: METOCLOPRAMIDE INJ 5 MG/ML VIAL 2 ML 10 MG IVP ×3 (05:06→17:33)
[2024-10-09] MEDS: HYDROcodone/APAP 5/325 TABLET 1 TAB PO ×3 (05:08→21:36)
[2024-10-09 06:19] LABS: Basophils # (Auto) 0.0 Thou/mm3 (0.0-0.2); Basophils % (Auto) 0 % (0-2.5); Eosinophils # (Auto) 0.1 Thou/mm3 (0.0-0.5); Eosinophils % (Auto) 1 % (0-10); Hematocrit 31.4 % (36.0-46.0); Hemoglobin 10.3 g/dL (12.0-16.0); Immature Granulocytes Auto 0.04 Thou/mm3 (0.00-0.00); Lymphocytes # (Auto) 1.9 Thou/mm3 (1.0-4.8); Lymphocytes % (Auto) 21 % (10-50); Mean Corpuscular HGB Conc 32.8 g/dl (31.0-37.0); Mean Corpuscular Hemoglobin 26.9 pg (25.0-35.0); Mean Corpuscular Volume 82 fL (80-100); Monocytes # (Auto) 1.2 Thou/mm3 (0.0-0.8); Monocytes % (Auto) 13 % (0-12); Neutrophils # (Auto) 5.9 Thou/mm3 (1.8-7.7); Neutrophils % (Auto) 64 % (37-80); Nucleated Red Blood Cell # 0.00 Thou/mm3 (0.00-0.00); Nucleated Red Blood Cell % 0 /100 WBC (0); Platelet Count 192 Thou/mm3 (140-440); RDW Standard Deviation 40.5 fL (36.4-46.3); Red Blood Count 3.83 Miln/mm3 (4.00-5.20); White Blood Count 9.1 Thou/mm3 (3.6-11.0)
[2024-10-09 07:34] LABS: Alanine Aminotransferase 9 U/L (10-49); Albumin, Serum 3.6 gm/dL (3.4-4.8); Albumin/Globulin Ratio 1.7 (1.2-2.2); Alkaline Phosphatase 68 U/L (46-116); Anion Gap 9 (7-16); Aspartate Amino Transferase 16 U/L (0-34); BUN/Creatinine Ratio 20 Ratio (12-20); Bilirubin,Total 0.4 mg/dL (0.3-1.2); Blood Urea Nitrogen 16 mg/dL (9-23); Calcium 8.8 mg/dL (8.3-10.6); Calcium (Corrected) 9.1 mg/dL (8.5-10.1); Carbon Dioxide 23.9 mMol/L (20.0-31.0); Chloride 102 mMol/L (98-107); Creatinine (Component) 0.8 mg/dL (0.6-1.3); Estimated Creatinine Clearance 70.9 mL/min (>60); Globulin 2.1 gm/dL (2.3-3.5); Glucose 128 mg/dL (74-106); Magnesium 2.0 mg/dL (1.6-2.6); Osmolality,Calculated 273 (275-295); Phosphorous 2.8 mg/dL (2.4-5.1); Potassium 3.9 mMol/L (3.4-5.1); Sodium 135 mMol/L (136-145); Total Protein 5.7 gm/dL (5.7-8.2); eGFR > 60 See Note
[2024-10-09] MEDS: HEPARIN SOD INJ 5000 UNIT/ML VIAL SC ×2 (08:02→20:59)
[2024-10-09] MEDS: cefTRIAXone/D5w 1gm IV premix 1 GM/50 ML BAG IV (08:06)
[2024-10-09] MEDS: DOCUSATE SOD 100 MG CAPSULE PO ×2 (08:09→20:59)
[2024-10-09] MEDS: ALBUTEROL/IPRATROPIUM (Duoneb) RT SOL 3 ML NEBU INH ×2 (09:40→17:02)
--- NOTE | 2024-10-09 15:05 | ESPR_ITS ---
<Statement entered by Pako Jones MD - 10/11/24 09:34> I have discussed and was present for the essential components of the history, physical examination, diagnosis, and treatment plan with the resident. I agree with the patient's care as documented by the resident and amended herein by me. Pako Jones MD FACP. <Statement entered by Velasquez Salgado MD - 10/09/24 21:12> I discussed and supervised with the health information internship physician who took care of this patient. I personally saw and examined the patient. I agree with most of the assessment and plan. Disclaimer: Despite multiple revisions, due to the dictation software being used, the document bellow may not be free of grammatical errors including phonetic/typographic errors. However, this does not deter from our commitment to providing health care in the patient's best interest in mind. Plan of care discussed with attending Physician Dr. Karen Salgado MD PGY-3 Documentation for date of: 10/09/24 Subjective Subjective Interval history: No acute events overnight. Patient stated she still can not tolerate the non liquid food. States she vomited again and is only able to tolerate liquids for now. She states she continues to have diffuse abdominal pain, though it feels better today, matrix drier tender to touch, but better according to the patient. Endorses multiple bowel movements that are loose in consistency over the last day. Patient denies fever, chest pain shortness of breath. Exam Vital Signs Temp Pulse Resp BP Pulse Ox O2 Del Method O2 Flow Rate 96.8 F 95 20 122/63 100 Room Air 2 10/09/24 08:00 10/09/24 09:42 10/09/24 09:42 10/09/24 08:09 10/09/24 09:42 10/09/24 08:00 10/09/24 09:42 Narrative Exam GENERAL APPEARANCE: ?AxOx3 no acute distress. HEART:? Normal rate and regular rhythm, normal S1/S2 LUNGS:? CTAB, moving air well. No crackles or wheezes are heard. ABDOMEN: ?diffusely tender, mild distension with good bowel sounds heard. NEUROLOGICAL: ?Grossly nonfocal. Alert and oriented, moving all 4 extremities. CN not formally tested but appear grossly intact. Objective Labs 10/10/24 07:03 10/10/24 07:03 Labs: Laboratory Results - last 24 hr 10/09/24 05:38 WBC 9.1 RBC 3.83 L Hgb 10.3 L Hct 31.4 L MCV 82 MCH 26.9 MCHC 32.8 RDW Std Deviation 40.5 Plt Count 192 D Neut % (Auto) 64 Lymph % (Auto) 21 [place] % (Auto) 13 H Eos % (Auto) 1 Baso % (Auto) 0 Neut # (Auto) 5.9 Lymph # (Auto) 1.9 [place] # (Auto) 1.2 H Eos # (Auto) 0.1 Baso # (Auto) 0.0 Immature Gran # (Auto) 0.04 H Absolute Nucleated RBC 0.00 Immature Gran % 0 Nucleated RBC % 0 Sodium 135 L Potassium 3.9 D Chloride 102 Carbon Dioxide 23.9 Anion Gap 9 BUN 16 Creatinine 0.8 Estim Creat Clear Calc 70.9 eGFR > 60 BUN/Creatinine Ratio 20 Glucose 128 H Calculated Osmolality 273 L Calcium 8.8 Corrected Calcium 9.1 Phosphorus 2.8 Magnesium 2.0 Total Bilirubin 0.4 AST 16 ALT 9 L Alkaline Phosphatase 68 Total Protein 5.7 Albumin 3.6 D Globulin 2.1 L Albumin/Globulin Ratio 1.7 ABG Interpretation ABG results: 10/05/24 01:41 ABG pH 7.40 ABG pCO2 35 ABG pO2 76 L ABG HCO3 22 ABG O2 Saturation 96 ABG Base Excess -2 Quality Measures Quality Measures VTE prophylaxis Advance care planning discussed with:: patient Assessment & Plan Assessment Current Active Medications: Generic Name Dose Route Start Last Admin Trade Name Freq PRN Reason Stop Dose Admin Hydrocodone Bitart/Acetaminophen 1 tab 10/06/24 13:49 10/09/24 12:59 Hydrocodone/Apap 5/325 Tablet PO 10/11/24 13:48 1 tab Q4HR PRN Administration Pain 7-10 Albuterol/Ipratropium 3 ml 10/05/24 01:25 10/09/24 09:40 Albuterol/Ipratropium (Duoneb) Rt Jannie 3 Ml Nebu INH 11/04/24 01:24 3 ml Q6HR PRN Administration SHORTNESS OF BREATH OR WHEEZE Amitriptyline HCl 50 mg 10/09/24 21:00 Amitriptyline Hcl 25 Mg Tablet PO 11/08/24 20:59 QPM SADE Atorvastatin Calcium 10 mg 10/09/24 21:00 Atorvastatin Calcium 10 Mg Tablet PO 11/08/24 20:59 HS SADE Dextrose 25 ml 10/05/24 01:15 Dextrose 50%-Water Inj 50 Ml Syringe IV 11/04/24 01:14 Q15MIN PRN BG 50-70 responsive npo pt Dextrose 50 ml 10/05/24 01:15 Dextrose 50%-Water Inj 50 Ml Syringe IV 11/04/24 01:14 Q15MIN PRN BG <50 OR BG <70 & pt unresponsive Docusate Sodium 100 mg 10/07/24 09:00 10/09/24 08:09 Docusate Sod 100 Mg Capsule PO 11/06/24 08:59 100 mg BID SADE Administration Protocol Glucagon 1 mg 10/05/24 01:15 Glucagon Inj 1 Mg Vial IM Q15MIN PRN BG <70, and no IV access Heparin Sodium (Porcine) 5,000 unit 10/05/24 09:00 10/09/24 08:02 Heparin Sod Inj 5000 Unit/Ml Vial SC 10/19/24 08:59 5,000 unit Q12HR SADE Administration Ceftriaxone Sodium/Dextrose 1 gm in 50 mls @ 100 mls/hr 10/05/24 01:19 10/09/24 08:06 Rocephin/D5w 1gm Iv Premix IV 10/12/24 01:18 100 mls/hr QDAY SADE Administration Insulin Human Lispro 0 unit 10/06/24 17:00 10/09/24 11:31 Insulin Lispro (Admelog) 1 Unit/0.01 Ml Unit SC 11/05/24 16:59 Not Given ACHS SADE Protocol Labetalol HCl 10 mg 10/05/24 01:26 Labetalol Inj 5 Mg/Ml Vial 20 Ml IVP 11/04/24 01:25 Q4HR PRN Hypertension Lisinopril 40 mg 10/07/24 09:00 10/09/24 08:09 Lisinopril 20 Mg Tablet PO 11/06/24 08:59 40 mg QDAY SADE Administration Metoclopramide HCl 10 mg 10/06/24 12:30 10/09/24 12:49 Metoclopramide Inj 5 Mg/Ml Vial 2 Ml IVP 11/05/24 12:29 10 mg Q6HR SADE Administration Protocol Ondansetron HCl 4 mg 10/05/24 01:15 10/07/24 07:26 Ondansetron Inj 2 Mg/Ml Inj 2 Ml IVP 11/04/24 01:14 4 mg Q6H PRN Administration NAUSEA OR VOMITING Protocol Pantoprazole Sodium 40 mg 10/05/24 09:00 10/09/24 08:01 Pantoprazole Inj 40 Mg Vial IV 11/04/24 08:59 40 mg QDAY SADE Administration Plan Patient is 73-year-old female with a PMHx of COPD (2 L home O2), hypertension, hyperlipidemia, type 2 diabetes mellitus, GERD and recent cholecystectomy on 09/26/2024. Has had multiple bowel movements over the last [address] Galvez consulted. Was admitted for management of SBO, currently being hospitalized for pain management and diet advancement s/p SBO #Small bowel obstruction-resolved #High-grade obstruction-resolved Patient presented with a high-grade small bowel obstruction at the ileal level with fluid distended esophagus as noted on abdomen/pelvis CT. Patient was taking opioids and history of abdominal surgery including partial hysterectomy and recent cholecystectomy. Denies previous SBO in the past. Patient has been having trouble tolerating any solid non-liquid food, is able to tolerate liquids well. Plan - Ordered Regular diet for dinner, may discharge if well tolerated, will consider GI consult if unable to tolerate the regular diet. - General surgery was consulted, Dr Galvez, appreciate recommendations -Acetaminophen -p.o. [place] 5 q4hr for pain 7-10 -IV morhpine 2mg q4hr for breakthrough pain - gastrograffin series--showed resolution of bowel obstruction #Hypertension Home medication of Lisinopril 40mg Plan - Labetolol PRN for systolic bP >180 - continue home med lisinopril 40mg daily #Non insulin dependent diabetes Mellitus type 2, well controlled Patient's home medication Ozempic. A1c 5.2 on this admission. Plan -ACHS glucose checks -Sliding Scale insulin -Fasting glucose levels - Educated patient on Ozempic and encouraged to discontinue after discharge. Patient seems hesitant to stop taking due to adverse effects of other antidiabetic therapies that she has used in the past. - Follow-up with PCP for alternative management #Hyperlipidemia Home medication simvastatin 20mg daily. Lipid panel: Tags 176, cholesterol 146, HDL 35 Plan -resume pending med rec -Follow up on lipid panel #COPD She uses 2L oxygen at home and duonebs. -duoneb q4hr PRN -goal O2 88-92% #Metabolic acidosis, anion gap-resolved #Lactic acidosis-resolved #Hypercalcemia-resolved #MINOR-resolved #Sepsis (resolved) 2/2 abdominal infection vs UTI Health Maintenance: Disp: advancing diet s/p SBO FEN: regular, advance as tolerated DVT: on subQ heparin Q12 Code: Full Code Plan Discussed with Dr. Karen Mclean MD PGY-1 Internal Medicine
--- NOTE | 2024-10-09 15:11 | XR_ITS ---
Examination: Abdomen AP single view Technique: AP portable supine abdomen, single view Exam date and time: October 09, 2024 1937 hours INDICATIONS: Patient with abdominal distention today. FINDINGS: Air distended small bowel loops No free air Surgical clips upper right abdomen IMPRESSION: Recommend repeat CT abdomen and pelvis without contrast to confirm recurrent small bowel obstruction
[2024-10-09] MEDS: POLYETHYLENE GLYCOL 17 GM PACKET PO (17:33)
--- NOTE | 2024-10-09 18:55 | XR_ITS ---
Examination: CT abdomen and pelvis without contrast. Coronal 3-D reconstructions. Sagittal 2-D reconstructions. Date and time of exam:October 09, [id number] hours COMPARISON: October 04, 2024 INDICATIONS: Abdominal pain and distention today CTDI: vol (mGy): 11.5 DLP: (mGycm): 639 Technique: Axial images of the abdomen have been obtained, 3 mm slice thickness Intravenous contrast material has not been administered. Low dose protocols were performed. One or more of the following dose reduction techniques were used; automated exposure control, adjustment of the mA and/or KV according to patient size, use of iterative reconstruction technique. Findings: Small right lobe liver cyst Absent gallbladder Spleen not enlarged Multiple fluid distended small bowel loops No hydronephrosis Aorta normal size Normal appendix Urinary bladder intact No pelvic mass IMPRESSION: Small bowel obstruction pattern Recommend repeat small bowel series follow-up
[2024-10-09] MEDS: AMITRIPTYLINE HCL 25 MG TABLET 50 MG PO (20:58)
[2024-10-09] MEDS: ATORVASTATIN CALCIUM 10 MG TABLET PO (20:59)
[2024-10-10] VITALS (11 sets, daily range): BP systolic 121–145; BP diastolic 53–75; PULSE 72–98; RESP 12–20; TEMP 36.1–36.9; O2SAT 96–100; BMI 27.6
[2024-10-10] MEDS: LACTULOSE SYRUP 20 GM/30 ML UDC 30 GM PO (00:36)
[2024-10-10] MEDS: ALBUTEROL/IPRATROPIUM (Duoneb) RT SOL 3 ML NEBU INH ×4 (00:54→20:47)
[2024-10-10 07:39] LABS: Basophils # (Auto) 0.0 Thou/mm3 (0.0-0.2); Basophils % (Auto) 0 % (0-2.5); Eosinophils # (Auto) 0.1 Thou/mm3 (0.0-0.5); Eosinophils % (Auto) 1 % (0-10); Hematocrit 32.4 % (36.0-46.0); Hemoglobin 10.5 g/dL (12.0-16.0); Immature Granulocytes Auto 0.04 Thou/mm3 (0.00-0.00); Lymphocytes # (Auto) 2.6 Thou/mm3 (1.0-4.8); Lymphocytes % (Auto) 34 % (10-50); Mean Corpuscular HGB Conc 32.4 g/dl (31.0-37.0); Mean Corpuscular Hemoglobin 26.9 pg (25.0-35.0); Mean Corpuscular Volume 83 fL (80-100); Monocytes # (Auto) 0.8 Thou/mm3 (0.0-0.8); Monocytes % (Auto) 10 % (0-12); Neutrophils # (Auto) 4.3 Thou/mm3 (1.8-7.7); Neutrophils % (Auto) 54 % (37-80); Nucleated Red Blood Cell # 0.00 Thou/mm3 (0.00-0.00); Nucleated Red Blood Cell % 0 /100 WBC (0); Platelet Count 249 Thou/mm3 (140-440); RDW Standard Deviation 40.8 fL (36.4-46.3); Red Blood Count 3.90 Miln/mm3 (4.00-5.20); White Blood Count 7.9 Thou/mm3 (3.6-11.0)
--- NOTE | 2024-10-10 07:53 | PD.SURPROG ---
Documentation for date of: 10/10/24 Subjective Subjective Narrative: Patient is seen and examined. She is resting comfortably. She had some abdominal distention yesterday a repeat CT scan was obtained that revealed dilated loops of small bowel concerning for small bowel obstruction. However, she has been eating and tolerating diet without nausea or vomiting and has been having bowel movements Exam Vital Signs Temp Pulse Resp BP Pulse Ox O2 Del Method O2 Flow Rate 97.0 F 90 18 130/72 100 Nasal Cannula 2 10/10/24 04:00 10/10/24 06:30 10/10/24 06:30 10/10/24 04:00 10/10/24 06:30 10/10/24 04:00 10/10/24 06:30 Constitutional Constitutional: no acute distress Routine Abdominal Exam Comments: Abdomen is soft but distended. Bowel sounds are active. She has tenderness to palpation throughout the abdomen, no rebound tenderness or peritonitis at this time Assessment & Plan Assessment Additional comments: I do not think patient has small bowel obstruction, rather she most likely has ileus. She is not ambulating Plan Patient is advised to increase ambulation. Start clear liquids and advance as tolerated
[2024-10-10 08:09] LABS: Alanine Aminotransferase 9 U/L (10-49); Albumin, Serum 3.8 gm/dL (3.4-4.8); Albumin/Globulin Ratio 1.7 (1.2-2.2); Alkaline Phosphatase 76 U/L (46-116); Anion Gap 7 (7-16); Aspartate Amino Transferase 13 U/L (0-34); BUN/Creatinine Ratio 16 Ratio (12-20); Bilirubin,Total 0.3 mg/dL (0.3-1.2); Blood Urea Nitrogen 13 mg/dL (9-23); Calcium 8.8 mg/dL (8.3-10.6); Calcium (Corrected) 9.0 mg/dL (8.5-10.1); Carbon Dioxide 27.2 mMol/L (20.0-31.0); Chloride 102 mMol/L (98-107); Creatinine (Component) 0.8 mg/dL (0.6-1.3); Estimated Creatinine Clearance 69.6 mL/min (>60); Globulin 2.2 gm/dL (2.3-3.5); Glucose 114 mg/dL (74-106); Magnesium 2.0 mg/dL (1.6-2.6); Osmolality,Calculated 273 (275-295); Potassium 3.5 mMol/L (3.4-5.1); Sodium 136 mMol/L (136-145); Total Protein 6.0 gm/dL (5.7-8.2); eGFR > 60 See Note
[2024-10-10] MEDS: cefTRIAXone/D5w 1gm IV premix 1 GM/50 ML BAG IV (08:49)
[2024-10-10] MEDS: DOCUSATE SOD 100 MG CAPSULE PO ×2 (08:55→21:31)
[2024-10-10] MEDS: POLYETHYLENE GLYCOL 17 GM PACKET PO (08:56)
[2024-10-10] MEDS: HEPARIN SOD INJ 5000 UNIT/ML VIAL SC ×2 (08:57→21:32)
[2024-10-10] MEDS: PANTOPRAZOLE 40 MG TABLET PO (11:48)
[2024-10-10] MEDS: METOCLOPRAMIDE INJ 5 MG/ML VIAL 2 ML 10 MG IVP ×2 (11:57→18:31)
--- NOTE | 2024-10-10 14:43 | PC.SS ---
Rounding note: patient is not tolerating diet well, plan is to advance diet. D/c plan is to return home.
--- NOTE | 2024-10-10 16:45 | ESPR_ITS ---
<Statement entered by Pako Jones MD - 10/13/24 15:00> I have discussed and was present for the essential components of the history, physical examination, diagnosis, and treatment plan with the resident. I agree with the patient's care as documented by the resident and amended herein by me. Pako Jones MD FACP. <Statement entered by Velasquez Salgado MD - 10/10/24 17:40> I discussed and supervised with the internal specialist physician who took care of this patient. I personally saw and examined the patient. I agree with most of the assessment and plan. Disclaimer: Despite multiple revisions, due to the dictation software being used, the document bellow may not be free of grammatical errors including phonetic/typographic errors. However, this does not deter from our commitment to providing health care in the patient's best interest in mind. Plan of care discussed with attending Physician Dr. Karen Salgado MD PGY-3 Documentation for date of: 10/10/24 Subjective Subjective Interval history: No acute events overnight. Patient was restarted on full liquid diet, states she is able to tolerate well. Denies nausea or vomiting. States her abdominal pain has gotten slightly better and also endorses less abdominal bloating. Exam Vital Signs Temp Pulse Resp BP Pulse Ox O2 Del Method O2 Flow Rate 97.4 F 86 14 128/75 99 Nasal Cannula 2 10/10/24 12:00 10/10/24 16:38 10/10/24 16:38 10/10/24 12:00 10/10/24 16:38 10/10/24 12:00 10/10/24 16:38 Narrative Exam GENERAL APPEARANCE: ?AxOx3 no acute distress. HEART:? Normal rate and regular rhythm, normal S1/S2 LUNGS:? CTAB, moving air well. No crackles or wheezes are heard. ABDOMEN: ?diffusely tender, mild distension with good bowel sounds heard. NEUROLOGICAL: ?Grossly nonfocal. Alert and oriented, moving all 4 extremities. CN not formally tested but appear grossly intact. Objective Labs 10/10/24 07:03 10/10/24 07:03 Labs: Laboratory Results - last 24 hr 10/10/24 07:03 WBC 7.9 RBC 3.90 L Hgb 10.5 L Hct 32.4 L MCV 83 MCH 26.9 MCHC 32.4 RDW Std Deviation 40.8 Plt Count 249 D Neut % (Auto) 54 Lymph % (Auto) 34 [place] % (Auto) 10 Eos % (Auto) 1 Baso % (Auto) 0 Neut # (Auto) 4.3 Lymph # (Auto) 2.6 [place] # (Auto) 0.8 Eos # (Auto) 0.1 Baso # (Auto) 0.0 Immature Gran # (Auto) 0.04 H Absolute Nucleated RBC 0.00 Immature Gran % 1 H Nucleated RBC % 0 Sodium 136 Potassium 3.5 Chloride 102 Carbon Dioxide 27.2 Anion Gap 7 BUN 13 Creatinine 0.8 Estim Creat Clear Calc 69.6 eGFR > 60 BUN/Creatinine Ratio 16 Glucose 114 H Calculated Osmolality 273 L Calcium 8.8 Corrected Calcium 9.0 Magnesium 2.0 Total Bilirubin 0.3 AST 13 ALT 9 L Alkaline Phosphatase 76 Total Protein 6.0 Albumin 3.8 Globulin 2.2 L Albumin/Globulin Ratio 1.7 ABG Interpretation ABG results: 10/05/24 01:41 ABG pH 7.40 ABG pCO2 35 ABG pO2 76 L ABG HCO3 22 ABG O2 Saturation 96 ABG Base Excess -2 Quality Measures Quality Measures VTE prophylaxis Advance care planning discussed with:: patient Assessment & Plan Assessment Current Active Medications: Generic Name Dose Route Start Last Admin Trade Name Freq PRN Reason Stop Dose Admin Hydrocodone Bitart/Acetaminophen 1 tab 10/06/24 13:49 10/09/24 21:36 Hydrocodone/Apap 5/325 Tablet PO 10/11/24 13:48 1 tab Q4HR PRN Administration Pain 7-10 Albuterol/Ipratropium 3 ml 10/05/24 01:25 10/10/24 16:38 Albuterol/Ipratropium (Duoneb) Rt Jannie 3 Ml Nebu INH 11/04/24 01:24 3 ml Q6HR PRN Administration SHORTNESS OF BREATH OR WHEEZE Amitriptyline HCl 50 mg 10/09/24 21:00 10/09/24 20:58 Amitriptyline Hcl 25 Mg Tablet PO 11/08/24 20:59 50 mg QPM SADE Administration Atorvastatin Calcium 10 mg 10/09/24 21:00 10/09/24 20:59 Atorvastatin Calcium 10 Mg Tablet PO 11/08/24 20:59 10 mg HS SADE Administration Dextrose 25 ml 10/05/24 01:15 Dextrose 50%-Water Inj 50 Ml Syringe IV 11/04/24 01:14 Q15MIN PRN BG 50-70 responsive npo pt Dextrose 50 ml 10/05/24 01:15 Dextrose 50%-Water Inj 50 Ml Syringe IV 11/04/24 01:14 Q15MIN PRN BG <50 OR BG <70 & pt unresponsive Docusate Sodium 100 mg 10/07/24 09:00 10/10/24 08:55 Docusate Sod 100 Mg Capsule PO 11/06/24 08:59 100 mg BID SADE Administration Protocol Glucagon 1 mg 10/05/24 01:15 Glucagon Inj 1 Mg Vial IM Q15MIN PRN BG <70, and no IV access Heparin Sodium (Porcine) 5,000 unit 10/05/24 09:00 10/10/24 08:57 Heparin Sod Inj 5000 Unit/Ml Vial SC 10/19/24 08:59 5,000 unit Q12HR SADE Administration Ceftriaxone Sodium/Dextrose 1 gm in 50 mls @ 100 mls/hr 10/05/24 01:19 10/10/24 08:49 Rocephin/D5w 1gm Iv Premix IV 10/12/24 01:18 100 mls/hr QDAY SADE Administration Insulin Human Lispro 0 unit 10/06/24 17:00 10/10/24 11:56 Insulin Lispro (Admelog) 1 Unit/0.01 Ml Unit SC 11/05/24 16:59 Not Given ACHS SADE Protocol Labetalol HCl 10 mg 10/05/24 01:26 Labetalol Inj 5 Mg/Ml Vial 20 Ml IVP 11/04/24 01:25 Q4HR PRN Hypertension Lisinopril 40 mg 10/07/24 09:00 10/10/24 08:55 Lisinopril 20 Mg Tablet PO 11/06/24 08:59 40 mg QDAY SADE Administration Metoclopramide HCl 10 mg 10/10/24 12:00 10/10/24 11:57 Metoclopramide Inj 5 Mg/Ml Vial 2 Ml IVP 11/09/24 11:59 10 mg Q6HR SADE Administration Protocol Ondansetron HCl 4 mg 10/05/24 01:15 10/07/24 07:26 Ondansetron Inj 2 Mg/Ml Inj 2 Ml IVP 11/04/24 01:14 4 mg Q6H PRN Administration NAUSEA OR VOMITING Protocol Pantoprazole Sodium 40 mg 10/10/24 09:45 10/10/24 11:48 Pantoprazole 40 Mg Tablet PO 11/09/24 09:44 40 mg QDAY SADE Administration Polyethylene Glycol 17 gm 10/09/24 15:15 10/10/24 08:56 Polyethylene Glycol 17 Gm Packet PO 11/08/24 15:14 17 gm QDAY SADE Administration Sennosides 1 tab 10/09/24 15:11 Senna Tablet PO 11/08/24 15:10 QDAY PRN CONSTIPATION Protocol Plan Plan Patient is 73-year-old female with a PMHx of COPD (2 L home O2), hypertension, hyperlipidemia, type 2 diabetes mellitus, GERD and recent cholecystectomy on 09/26/2024. Has had multiple bowel movements over the last [address] Galvez consulted. Was admitted for management of SBO, currently being hospitalized for pain management and diet advancement s/p SBO #Small bowel obstruction-resolved #High-grade obstruction-resolved Patient presented with a high-grade small bowel obstruction at the ileal level with fluid distended esophagus as noted on abdomen/pelvis CT. Patient was taking opioids and history of abdominal surgery including partial hysterectomy and recent cholecystectomy. Denies previous SBO in the past. Patient is able to tolerate liquids well. Plan - Ordered PUD bland diet for dinner given that she was tolerating full liquid diet without nausea/vomiting - General surgery was consulted, Dr Galvez, appreciate recommendations -Acetaminophen -p.o. [place] 5 q4hr for pain 7-10 -IV morhpine 2mg q4hr for breakthrough pain - gastrograffin series--showed resolution of bowel obstruction #Hypertension Home medication of Lisinopril 40mg Plan - Labetolol PRN for systolic bP >180 - continue home med lisinopril 40mg daily #Non insulin dependent diabetes Mellitus type 2, well controlled Patient's home medication Ozempic. A1c 5.2 on this admission. Plan -ACHS glucose checks -Sliding Scale insulin -Fasting glucose levels - Educated patient on Ozempic and encouraged to discontinue after discharge. Patient seems hesitant to stop taking due to adverse effects of other antidiabetic therapies that she has used in the past. - Follow-up with PCP for alternative management #Hyperlipidemia Home medication simvastatin 20mg daily. Lipid panel: Tags 176, cholesterol 146, HDL 35 Plan -resume pending med rec -Follow up on lipid panel #COPD She uses 2L oxygen at home and duonebs. -duoneb q4hr PRN -goal O2 88-92% #Metabolic acidosis, anion gap-resolved #Lactic acidosis-resolved #Hypercalcemia-resolved #MINOR-resolved #Sepsis (resolved) 2/2 abdominal infection vs UTI Health Maintenance: Disp: advancing diet s/p SBO FEN: GERARDO damon, advance as tolerated DVT: on subQ heparin Q12 Code: Full Code Plan Discussed with Dr. Karen Mclean MD PGY-1 Internal Medicine
[2024-10-10] MEDS: HYDROcodone/APAP 5/325 TABLET 1 TAB PO (18:37)
[2024-10-10] MEDS: AMITRIPTYLINE HCL 25 MG TABLET 50 MG PO (21:31)
[2024-10-10] MEDS: ATORVASTATIN CALCIUM 10 MG TABLET PO (21:32)
[2024-10-11] VITALS (8 sets, daily range): BP systolic 114–146; BP diastolic 50–59; PULSE 77–98; RESP 10–75; TEMP 36.1–36.4; O2SAT 96–100; BMI 28.6
[2024-10-11] MEDS: HYDROcodone/APAP 5/325 TABLET 1 TAB PO ×2 (01:00→08:27)
[2024-10-11] MEDS: ALBUTEROL/IPRATROPIUM (Duoneb) RT SOL 3 ML NEBU INH ×2 (02:47→07:50)
[2024-10-11 06:37] LABS: Basophils # (Auto) 0.0 Thou/mm3 (0.0-0.2); Basophils % (Auto) 0 % (0-2.5); Eosinophils # (Auto) 0.1 Thou/mm3 (0.0-0.5); Eosinophils % (Auto) 1 % (0-10); Hematocrit 26.7 % (36.0-46.0); Hemoglobin 8.6 g/dL (12.0-16.0); Immature Granulocytes Auto 0.02 Thou/mm3 (0.00-0.00); Lymphocytes # (Auto) 2.4 Thou/mm3 (1.0-4.8); Lymphocytes % (Auto) 44 % (10-50); Mean Corpuscular HGB Conc 32.2 g/dl (31.0-37.0); Mean Corpuscular Hemoglobin 27.0 pg (25.0-35.0); Mean Corpuscular Volume 84 fL (80-100); Monocytes # (Auto) 0.6 Thou/mm3 (0.0-0.8); Monocytes % (Auto) 11 % (0-12); Neutrophils # (Auto) 2.4 Thou/mm3 (1.8-7.7); Neutrophils % (Auto) 44 % (37-80); Nucleated Red Blood Cell # 0.00 Thou/mm3 (0.00-0.00); Nucleated Red Blood Cell % 0 /100 WBC (0); Platelet Count 202 Thou/mm3 (140-440); RDW Standard Deviation 41.4 fL (36.4-46.3); Red Blood Count 3.19 Miln/mm3 (4.00-5.20); White Blood Count 5.5 Thou/mm3 (3.6-11.0)
[2024-10-11 07:17] LABS: Alanine Aminotransferase < 7 U/L (10-49); Albumin, Serum 3.0 gm/dL (3.4-4.8); Albumin/Globulin Ratio 1.7 (1.2-2.2); Alkaline Phosphatase 60 U/L (46-116); Anion Gap 9 (7-16); Aspartate Amino Transferase 10 U/L (0-34); BUN/Creatinine Ratio 13 Ratio (12-20); Bilirubin,Total 0.2 mg/dL (0.3-1.2); Blood Urea Nitrogen 9 mg/dL (9-23); Calcium 8.2 mg/dL (8.3-10.6); Calcium (Corrected) 9.0 mg/dL (8.5-10.1); Carbon Dioxide 26.0 mMol/L (20.0-31.0); Chloride 103 mMol/L (98-107); Creatinine (Component) 0.7 mg/dL (0.6-1.3); Estimated Creatinine Clearance 80.8 mL/min (>60); Globulin 1.8 gm/dL (2.3-3.5); Glucose 115 mg/dL (74-106); Magnesium 1.7 mg/dL (1.6-2.6); Osmolality,Calculated 275 (275-295); Phosphorous 3.2 mg/dL (2.4-5.1); Potassium 3.6 mMol/L (3.4-5.1); Sodium 138 mMol/L (136-145); Total Protein 4.8 gm/dL (5.7-8.2); eGFR > 60 See Note
[2024-10-11] MEDS: PANTOPRAZOLE 40 MG TABLET PO (08:27)
[2024-10-11] MEDS: DOCUSATE SOD 100 MG CAPSULE PO (08:27)
[2024-10-11] MEDS: HEPARIN SOD INJ 5000 UNIT/ML VIAL SC (08:27)
[2024-10-11] MEDS: POLYETHYLENE GLYCOL 17 GM PACKET PO (08:28)
[2024-10-11] MEDS: Magnesium Sulfate 2 GM Ivpb 2 GM/50 ML BAG IV (09:30)
--- NOTE | 2024-10-11 13:55 | ESDS_ITS ---
<Statement entered by Denisa Juan DO - 10/12/24 08:29> I, Denisa Juan DO, attest that I was physically present for the steele portions of the service and evaluated the patient with the resident and I reviewed and discussed the case with the resident and agree with the resident's findings and plans of care as documented above Planned Discharge Date 10/11/24 DS: Providers Provider Date of admission: 10/05/24 01:12 Primary care physician: Jose Alberto Allen PA-C Admitting Provider: Markus Robison MD Attending Provider on Admission: Pako Jones MD Consults: 10/05/24 07:27 Consult to General Surgery Routine Comment: SBO s/p cholecystectomy Consulting Provider: Geovany Galvez 10/08/24 17:14 Referral Speech Therapy Routine Comment: difficulty eating Attending Provider on DC: Denisa juan DO Discharging Provider: Denisa juan DO DS: Diagnosis Problem List Completed Was Problem List Reviewed/Reconciled?: Yes Hospital Course Hospital Course Hospital course: This 73-year-old female with a history of?COPD (on 2L O?), HTN, hyperlipidemia, T2DM, GERD, and recent cholecystectomy (09/26/2024)?presented with?diffuse abdominal pain, tachycardia, and leukocytosis, prompting a sepsis alert, which was later ruled out (negative cultures, resolved lactic acidosis).?CT abdomen revealed a high-grade small bowel obstruction (SBO) at the ileal level?with a fluid-distended stomach. An?NG tube was placed for decompression, and surgery was consulted.A?small bowel series did not show SBO, so the NG tube was removed, and she was started on?clear liquids. Her?MINOR resolved with IV fluids, but she had?persistent abdominal pain with nausea/vomiting, delaying discharge. A repeat?CT suggested possible recurrent SBO, but the surgeon,?Dr. Galvez, noted that despite dilated loops, she was tolerating diet, having bowel movements, and likely had?ileus. Management included?Reglan, Miralax, docusate, ambulation, and advancement to a bland diet, with subsequent improvement. She was?discharged stable?with outpatient follow-up with Dr. Galvez. #Problem list #SBO?resolved #High-grade obstruction?resolved #Ileus pattern per CT findings, resolved #History of hypertension #Ngo-nnfmxzo-cdopelfyd type 2 diabetes, well-controlled #Hyperlipidemia #COPD #Metabolic acidosis, anion gap-resolved #Lactic acidosis-resolved #Hypercalcemia-resolved #MINOR-resolved #Sepsis (resolved) 2/2 abdominal infection vs UTI, ruled out BC and UCx negative DC instructions Stop taking Ozempic, it can cause bowel obstruction. Resume previous medications. Follow up with PCP in 1-2 weeks. F/u with surgeon Dr Galvez on MONDAY for follow up In case of emergency call 911 or come back to ed Patient was seen and discussed with attending Physician,Dr Naomi Salgado MD PGY-3 Time Spent with Patient Time attestation: Total time spent providing and/or coordinating discharge services: Time spent: Greater than 30 minutes Exam Vital Signs Temp Pulse Resp BP Pulse Ox O2 Del Method O2 Flow Rate 97.5 F 85 19 114/50 L 97 Room Air 2 10/11/24 11:54 10/11/24 12:00 10/11/24 11:54 10/11/24 11:54 10/11/24 11:54 10/11/24 11:54 10/11/24 08:00 Narrative Exam GENERAL APPEARANCE: AxOx4, generally well-appearing female in no acute distress. HEENT: NC, AT. MMM. EOMI, clear conjunctiva, oropharynx clear. NECK: Supple without lymphadenopathy. No stiffness or restricted ROM. HEART: Regular rate and regular rhythm, normal S1/S2, no m/r/g LUNGS: CTAB, moving air well. No crackles or wheezes are heard. ABDOMEN: Soft, mildly tender, nondistended with good bowel sounds heard. BACK: No CVAT, no obvious deformity. EXTREMITIES: Without cyanosis, clubbing or edema. NEUROLOGICAL: Grossly nonfocal. Alert and oriented, moving all 4 extremities. CN not formally tested but appear grossly intact. Observed to ambulate with normal gait. Skin: Warm and dry without any rash. Psych: Appropriate mood and affect Discharge Plan Plan Patient Disposition: HOME (Self Care) Care Plan Goals: Stop taking Ozempic, it can cause bowel obstruction. Resume previous medications. Follow up with PCP in 1-2 weeks. F/u with surgeon Dr Galvez on MONDAY for follow up In case of emergency call 911 or come back to ed Prescriptions/Referrals Prescriptions/Med Rec: New polyethylene glycol 3350 [Miralax] 17 gram/dose powder 17 g PO QDAY PRN (Reason: constipation) Qty: 119 0RF Continued Acetaminophen With Codeine #3 * (TYLENOL WITH CODEINE #3 *) 1 TAB tablet 1 tab PO [id number] PRN (Reason: PAIN) Qty: 0 Patient Comments: FOR PAIN simvastatin [Zocor] 20 MG tablet 20 mg PO HS Qty: 0 montelukast [Singulair] 10 MG tablet 10 mg PO HS Qty: 0 lisinopril 40 MG tablet 40 mg PO QDAY Qty: 0 albuterol sulfate [Proventil HFA] 6.7 GM HFA aerosol inhaler 2 puff Inhalation Q4H PRN (Reason: SHORTNESS OF BREATH) Qty: 0 ipratropium-albuterol 0.5 mg-3 mg(2.5 mg base)/3 mL solution for nebulization 3 ml INHALATION Q6H PRN (Reason: shortness of breath) Patient Comments: USE 3 ML VIA NEBULIZER EVERY 6 HOURS NEEDED dexilant 60 mg capsule 60 mg PO QDAY amitriptyline 50 mg tablet See Rx Instructions PO QPM Rx Instructions: 50-100 mg orally every evening; docusate sodium [Colace] 100 mg capsule 100 mg PO BID Qty: 40 0RF Held Ozempic 0.25 mg or 0.5 mg (2 mg/3 mL) pen injector 0.5 mg subcut QWEEK Hold Instructions: Resume on 10/27/24. Hold until you follow up with PCP. Referrals: Geovany Galvez MD [Physician] - Jose Alberto Allen PA-C [Primary Care Provider] - Patient/Caregiver Discharge Instructions Discharge Activity: activity as tolerated Other Discharge Activity Instructions:: Stop taking Ozempic, it can cause bowel obstruction. Resume previous medications. Follow up with PCP in 1-2 weeks. F/u with surgeon Dr Galvez on MONDAY for follow up In case of emergency call 911 or come back to ed Education Materials: Small Bowel Obstruction, Obstruction Intestinal Print Language: Uzbek Stand Alone Forms: Leia Award Info., Patient Portal Info Letter Discharge Order Discharge Orders: Discharge (Routine); Ordered 10/11/24 Ordered By: Velasquez Salgado Quality Discharge Quality Measures VTE prophylaxis (SCDs)
== END 2024-10-11 12:23 | disposition home or self-care (01) | DRG 872 ==
LOC: SERX 21:49 → SERHOLD 10-05 02:04 → S2NX 10-05 14:05
PROVIDERS: Student in an Organized Health Care Education/Training Program; Admitting Provider Internal Medicine; Emergency Provider Emergency Medicine; PCP Physician Assistant Medical; Visit Provider Internal Medicine
DX: A41.9 Sepsis, unspecified organism (principal); K56.609 Unspecified intestinal obstruction, unspecified as to partial versus complete obstruction; N17.9 Acute kidney failure, unspecified; E87.20 Acidosis, unspecified; E87.1 Hypo-osmolality and hyponatremia; K56.7 Ileus, unspecified; R65.20 Severe sepsis without septic shock; K21.9 Gastro-esophageal reflux disease without esophagitis; I10 Essential (primary) hypertension; E78.5 Hyperlipidemia, unspecified; E11.9 Type 2 diabetes mellitus without complications; K22.89 Other specified disease of esophagus; J44.9 Chronic obstructive pulmonary disease, unspecified; E86.1 Hypovolemia; E83.52 Hypercalcemia; Z99.81 Dependence on supplemental oxygen; Z90.49 Acquired absence of other specified parts of digestive tract; Z79.84 Long term (current) use of oral hypoglycemic drugs; Z79.4 Long term (current) use of insulin; Z79.899 Other long term (current) drug therapy; Z87.891 Personal history of nicotine dependence; Z90.711 Acquired absence of uterus with remaining cervical stump; Z79.85 Long-term (current) use of injectable non-insulin antidiabetic drugs; Z88.0 Allergy status to penicillin; Z88.6 Allergy status to analgesic agent; Z88.8 Allergy status to other drugs, medicaments and biological substances
CPT/HCPCS: 36415; 36600; 71045; 74018; 74176; 74177; 74250; 80053; 80061; 81001; 82010; 82803; 83036; 83605; 83690; 83735; 83880; 84100; 84145; 84484; 85025; 85610; 85730; 87040; 87086; 92610; 93005; 94640; 94664; 96361; 96365; 96367; 96372; 96375; 96376; 99285; A4649; A9270; J0694; J0696; J1171; J1644; J1815; J2270; J2405; J2470; J2765; J3475; J3480; J3490; J7030; J7050; Q9967; J1836